=== PATIENT | male | born 1950 | race Caucasian/White ===

== ENCOUNTER → 2018-10-30 | Outpatient (CLI) | payer MEDICARE, OTHER ==
[2018-10-30 14:31] LABS: ABSOLUTE BASOPHILS # (AUTO) 0.1 10^3/uL (0.0-0.2); ABSOLUTE EOSINOPHILS # (AUTO) 0.4 10^3/uL (0.0-0.6); ABSOLUTE LYMPHOCYTES (AUTO) 1.8 10^3/uL (0.5-4.7); ABSOLUTE MONOCYTES (AUTO) 0.7 10^3/uL (0.1-1.4); ABSOLUTE NEUT (AUTO) 7.5 10^3/uL (1.7-8.2); EOSINOPHILS % (AUTO) 4.2 % (0-6); HEMATOCRIT 44.5 % (37.9-51.0); HEMOGLOBIN 15.5 g/dL (13.5-17.0); LYMPHOCYTES % (AUTO) 17.5 % (13-45); MEAN CORPUSCULAR HEMOGLOBIN 30.7 pg (27.0-33.4); MEAN CORPUSCULAR HGB CONC 34.8 g/dL (32.0-36.0); MEAN CORPUSCULAR VOLUME 88 fl (80-97); MONOCYTES % (AUTO) 6.5 % (3-13); PLATELET COUNT 221 10^3/uL (150-450); RED BLOOD COUNT 5.03 10^6/uL (4.35-5.55); RED CELL DISTRIBUTION WIDTH 14.6 % (11.5-14.0); SEGMENTED NEUTROPHILS % (AUTO) 70.8 % (42-78); TOTAL CELLS COUNTED % (AUTO) 100 %; WHITE BLOOD COUNT 10.5 10^3/uL (4.0-10.5)
[2018-10-30 14:34] LABS: APPEARANCE,URINE CLEAR; BILIRUBIN,URINE NEGATIVE (NEGATIVE); COLOR,URINE YELLOW; GLUCOSE, URINE NEGATIVE (NEGATIVE); KETONES,URINE NEGATIVE (NEGATIVE); LEUKOCYTE ESTERASE,URINE TRACE (NEGATIVE); NITRITE,URINE NEGATIVE (NEGATIVE); PROTEIN,URINE NEGATIVE (NEGATIVE); URINE SPECIFIC GRAVITY 1.009; UROBILINOGEN,URINE NEGATIVE mg/dL (<2.0)
[2018-10-30 14:47] LABS: ALANINE AMINOTRANSFERASE 20 U/L (21-72); ALBUMIN 4.2 g/dL (3.5-5.0); ALKALINE PHOSPHATASE 51 U/L (38-126); ANION GAP 10 (5-19); ASPARTATE AMINO TRANSFERASE 20 U/L (17-59); BILIRUBIN,DIRECT 0.2 mg/dL (0.0-0.4); BILIRUBIN,TOTAL 0.6 mg/dL (0.2-1.3); BLOOD UREA NITROGEN 15 mg/dL (7-20); CALCIUM 9.5 mg/dL (8.4-10.2); CARBON DIOXIDE 31 mmol/L (22-30); CHLORIDE 101 mmol/L (98-107); GLUCOSE 98 mg/dL (75-110); POTASSIUM 3.4 mmol/L (3.6-5.0); SODIUM 142.3 mmol/L (137-145); TOTAL PROTEIN 6.7 g/dL (6.3-8.2)
== END ==
LOC: OD 13:44
PROVIDERS: ATTEND Internal Medicine Nephrology
DX: I12.9 Hypertensive chronic kidney disease with stage 1 through stage 4 chronic kidney disease, or unspecified chronic kidney disease (principal); N18.3 Chronic kidney disease, stage 3 (moderate)
CPT/HCPCS: 36415; 80053; 81001; 85025

== ENCOUNTER 2020-08-05 08:45 | Inpatient (IN) | payer MEDICARE, OTHER ==
[2020-08-05] MEDS ORDERED: NORMAL SALINE 1000 ML 1,000 ML IV ONE (09:12)
[2020-08-05 09:33] LABS: ALBUMIN 3.1 g/dL (3.5-5.0); ALKALINE PHOSPHATASE 164 U/L (38-126); ANION GAP 8 (5-19); ASPARTATE AMINO TRANSFERASE 200 U/L (17-59); BILIRUBIN,DIRECT 1.2 mg/dL (0.0-0.4); BILIRUBIN,TOTAL 2.1 mg/dL (0.2-1.3); BLOOD UREA NITROGEN 46 mg/dL (7-20); CALCIUM 10.3 mg/dL (8.4-10.2); CARBON DIOXIDE 25 mmol/L (22-30); CHLORIDE 104 mmol/L (98-107); CREATINE KINASE 114 U/L (55-170); GLUCOSE 106 mg/dL (75-110); POTASSIUM 4.3 mmol/L (3.6-5.0)
[2020-08-05 10:03] LABS: APPEARANCE,URINE SLIGHTLY-CLOUDY; BILIRUBIN,URINE SMALL (NEGATIVE); COLOR,URINE AMBER; GLUCOSE, URINE NEGATIVE (NEGATIVE); KETONES,URINE TRACE mg/dL (NEGATIVE); LEUKOCYTE ESTERASE,URINE NEGATIVE (NEGATIVE); NITRITE,URINE NEGATIVE (NEGATIVE); PROTEIN,URINE 100 mg/dL (NEGATIVE); URINE SPECIFIC GRAVITY 1.023
--- NOTE | 2020-08-05 10:07 | RADIOLOGY REPORT (SQ) ---
EXAM DESCRIPTION: CHEST SINGLE VIEW IMAGES COMPLETED DATE/TIME: 08/05/2020 9:09 am REASON FOR STUDY: dizziness COMPARISON: None. EXAM PARAMETERS: NUMBER OF VIEWS: One view. TECHNIQUE: Single frontal radiographic view of the chest acquired. RADIATION DOSE: NA LIMITATIONS: None. FINDINGS: LUNGS AND PLEURA: Lungs are hyperinflated and hyperlucent from obstructive lung disease. No focal infiltrates. No pleural pneumothorax MEDIASTINUM AND HILAR STRUCTURES: No masses. Contour normal. HEART AND VASCULAR STRUCTURES: Heart normal in size. Normal vasculature. BONES: No acute findings. HARDWARE: None in the chest. OTHER: No other significant finding. IMPRESSION: HYPERINFLATION. NO ACUTE RADIOGRAPHIC FINDING IN THE CHEST. TECHNICAL DOCUMENTATION: JOB ID: [id number] 2010 [employer]- All Rights Reserved Reading location - IP/workstation name: [id number]
[2020-08-05 10:43] LABS: HEMATOCRIT 40.5 % (37.9-51.0); HEMOGLOBIN 13.6 g/dL (13.5-17.0); MEAN CORPUSCULAR HGB CONC 33.6 g/dL (32.0-36.0); MEAN CORPUSCULAR VOLUME 89 fl (80-97); RED BLOOD COUNT 4.54 10^6/uL (4.35-5.55); RED CELL DISTRIBUTION WIDTH 13.5 % (11.5-14.0); WHITE BLOOD COUNT 12.9 10^3/uL (4.0-10.5)
[2020-08-05 11:13] LABS: ABSOLUTE LYMPHOCYTES# (MANUAL) 1.3 10^3/uL (0.5-4.7); ABSOLUTE MONOCYTES # (MANUAL) 0.1 10^3/uL (0.1-1.4); BASOPHILS % (MANUAL) 0 % (0-2); EOSINOPHILS % (MANUAL) 0 % (0-6); LYMPHOCYTES % (MANUAL) 10 % (13-45); MONOCYTES % (MANUAL) 1 % (3-13); PLATELET CLUMPS PRESENT; PLATELET COMMENT ADEQUATE; SEGMENTED NEUTROPHILS % (MAN) 84 % (42-78); TOTAL CELLS COUNTED 100
[2020-08-05 11:14] LABS: PLATELET COUNT 100 10^3/uL (150-450); RBC MORPHOLOGY COMMENT NORMO-CYTIC/CHROMIC
[2020-08-05 11:17] LABS: METAMYELOCYTES % (MANUAL) 3 % (0-1); MYELOCYTES % (MANUAL) 2 % (0)
[2020-08-05 11:18] LABS: PLATELET GIANT PRESENT
--- NOTE | 2020-08-05 11:18 | EKG REPORT ---
SEVERITY:- ABNORMAL ECG - SINUS TACHYCARDIA LEFT ANTERIOR FASCICULAR BLOCK CONSIDER OLD INFERIOR WI VS LAFB : Confirmed by: Mike Srinivasan MD 05-Aug-2020 11:18:00
--- NOTE | 2020-08-05 11:24 | ER Document Report ---
ED General - General Chief Complaint: Dizziness Stated Complaint: DIZZINESS Time Seen by Provider: 08/05/20 08:47 Mode of Arrival: Medic Information source: Patient, Emergency Med Personnel Notes: 70-year-old male patient with history of hypertension presented to the emergency department with chief complaint of dizziness and generalized malaise. Patient reports he felt fine when he went to bed last night. He woke up this morning feeling dizzy and diaphoretic. He reports he has been drinking water but has not had much of an appetite over the last few days. He has recently seen his primary care provider, had labs drawn and also had imaging done of his abdominal aortic aneurysm, he reports that there was no problem on the imaging. He denies any chest pain, shortness of breath, nausea, vomiting or any other symptoms. He reports the dizziness is worse when he stands up. TRAVEL OUTSIDE OF THE [place] IN LAST 30 DAYS: No - Related Data Allergies/Adverse Reactions: Penicillins Allergy (Verified 08/05/20 09:45) Sulfa (Sulfonamide Antibiotics) Allergy (Verified 08/05/20 09:45) Home Medications: amlodipine, aspirin Past Medical History - General Information source: Patient - Social History Smoking Status: Former Smoker - quit in 2017 Frequency of alcohol use: None Drug Abuse: None Family History: CVA, Hypertension, Other - father of "brain hemorrhage" - Past Medical History Cardiac Medical History: Reports: Hx Hypertension Pulmonary Medical History: Reports: Hx Asthma Renal/ Medical History: Reports: Other - Chronic kidney disease Surgical Hx: Negative - Immunizations Immunizations up to date: Yes Review of Systems - Review of Systems Constitutional: Other - Dizziness, decreased appetite -: Yes All other systems reviewed and negative Physical Exam - Vital signs Vitals: Resp Pulse Ox 23 H 94 08/05/20 08:46 08/05/20 08:46 - Notes Notes: PHYSICAL EXAMINATION: GENERAL: Well-appearing, well-nourished and in no acute distress. HEAD: Atraumatic, normocephalic. EYES: Pupils equal round and reactive to light, extraocular movements intact, sclera anicteric, conjunctiva are slightly yellow. ENT: Nares patent, oropharynx clear without exudates. Dry mucous membranes. NECK: Normal range of motion, supple without lymphadenopathy LUNGS: Breath sounds clear to auscultation bilaterally and equal. Slight expiratory wheezes noted bilaterally. HEART: Regular rate and rhythm without murmurs ABDOMEN: Soft, nontender, nondistended abdomen. No guarding, no rebound. No masses appreciated. Musculoskeletal: Normal range of motion, no pitting or edema. No cyanosis. NEUROLOGICAL: Cranial nerves grossly intact. Normal speech. Normal sensory, motor exams PSYCH: Normal mood, normal affect. SKIN: Skin yellow. Decreased skin turgor. Course - Re-evaluation Re-evalutation: Case was discussed with attending physician, Dr. Fuentes. Patient has low platelet count, elevated creatinine which is at or near patient's baseline, significantly elevated LFTs. Right upper quadrant ultrasound was obtained, shows possible metastatic liver. CT of the abdomen, pelvis and chest was added on. This showed nodules in the lungs. Patient remains tachycardic with a heart rate in the 120s despite 2 L fluid resuscitation. Hospitalist was called for admission for dehydration as well as possible new diagnosis of cancer, unknown primary site. Patient was accepted for admission. Discussed plan of care with patient and . Discussed all test results with patient and , they have no questions at this time. - Vital Signs Vital signs: Temp Pulse Resp BP Pulse Ox 97.1 F 123 H 21 H 97/74 L 95 08/05/20 18:24 08/05/20 19:00 08/05/20 16:01 08/05/20 18:24 08/05/20 18:24 - Laboratory Result Diagrams: 08/05/20 10:25 08/05/20 08:50 Laboratory results interpreted by me: 08/05/20 08/05/20 08/05/20 08:50 08:50 09:25 WBC Plt Count Seg Neuts % (Manual) Lymphocytes % (Manual) Monocytes % (Manual) Metamyelocytes % Myelocytes % Abs Neuts (Manual) D-Dimer 10.39 H BUN 46 H Calcium 10.3 H Total Bilirubin 2.1 H Direct Bilirubin 1.2 H AST 200 H ALT 141 H Alkaline Phosphatase 164 H Total Protein 6.0 L Albumin 3.1 L Urine Protein 100 H Urine Ketones TRACE H Urine Bilirubin SMALL H Urine Urobilinogen 4.0 H 08/05/20 10:25 WBC 12.9 H Plt Count 100 L Seg Neuts % (Manual) 84 H Lymphocytes % (Manual) 10 L Monocytes % (Manual) 1 L Metamyelocytes % 3 H Myelocytes % 2 H Abs Neuts (Manual) 11.5 H D-Dimer BUN Calcium Total Bilirubin Direct Bilirubin AST ALT Alkaline Phosphatase Total Protein Albumin Urine Protein Urine Ketones Urine Bilirubin Urine Urobilinogen - Diagnostic Test Radiology reviewed: Image reviewed, Reports reviewed - EKG Interpretation by Me EKG shows normal: Sinus rhythm - Sinus tachycardia, rate 127, normal intervals, no obvious ST segment elevations or depressions to suggest ischemia. Discharge - Discharge Clinical Impression: Dehydration, Elevated liver enzymes, Tachycardia, Lung nodule, Metastasis to liver of unknown origin Condition: Stable Disposition: ADMITTED OBSERVATION Admitting Provider: Mark (Hospitalist) Unit Admitted: Telemetry
--- NOTE | 2020-08-05 11:34 | RADIOLOGY REPORT (SQ) ---
EXAM DESCRIPTION: U/S ABDOMEN LTD W/DOPPLER IMAGES COMPLETED DATE/TIME: 08/05/2020 11:13 am REASON FOR STUDY: elevated LFT's, eval RUQ COMPARISON: None. TECHNIQUE: Dynamic and static grayscale images acquired of the abdomen and recorded on PACS. Additio nal selected color Doppler and spectral images recorded. LIMITATIONS: Upper abdominal bowel gas FINDINGS: PANCREAS: Midline pancreas unremarkable LIVER: Liver is normal size but heterogeneous in echotexture nodular appearance. Multiple liver meta static masses could not be excluded. LIVER VASCULATURE: Normal directional flow of the main portal vein and hepatic veins. GALLBLADDER: Multiple stones, largest is 3 cm. Normal wall thickness. No pericholecystic fluid. ULTRASOUND-DETECTED HARDING'S SIGN: Negative. INTRAHEPATIC DUCTS AND COMMON DUCT: CBD and intrahepatic ducts normal caliber. No filling defects. INFERIOR VENA CAVA: Normal flow. AORTA: No aneurysm. RIGHT KIDNEY: Diffusely small, echogenic cortex, with no hydronephrosis. PERITONEAL AND RIGHT PLEURAL SPACE: No ascites or effusions. OTHER: No other significant findings. IMPRESSION: Nodular appearing liver, multinodular cirrhosis versus liver metastatic disease Multiple stones in the gallbladder without sonographic signs of acute cholecystitis Echogenic atrophic right kidney TECHNICAL DOCUMENTATION: JOB ID: [id number] 2010 [employer]- All Rights Reserved Reading location - IP/workstation name: [id number]
--- NOTE | 2020-08-05 13:47 | RADIOLOGY REPORT (SQ) ---
EXAM DESCRIPTION: CT CHEST WITH; CT ABD/PELVIS WITH IV ONLY IMAGES COMPLETED DATE/TIME: 08/05/2020 11:41 am REASON FOR STUDY: eval for primary ca site. Patient presented with dizziness today. Bilateral le g weakness. COMPARISON: Chest radiograph, same date. CONTRAST TYPE AND DOSE: 95 mL Omnipaque 350- low osmolar. RENAL FUNCTION: GFR > 60. TECHNIQUE: CT scan of the chest performed using helical scanning technique with dynamic intravenous contrast injection. Images reviewed with lung, soft tissue and bone windows. Reconstructed coronal a nd sagittal MPR images reviewed. All images stored on PACS. CT scan of the abdomen and pelvis performed with intravenous and oral contrast using helical scanning technique with dynamic intravenous contrast injection. Images reviewed with lung, soft tissue and b one windows. Reconstructed coronal and sagittal MPR images reviewed. Delayed images for evaluation of the urinary system also acquired and evaluated. All images stored on PACS. All CT scanners at this facility use dose modulation, iterative reconstruction, and/or weight based d osing when appropriate to reduce radiation dose to as low as reasonably achievable (ALARA). [facility]: Dose Right [facility]: CareDose [facility]: Dose Right [facility]: Teradose 4D [facility]: [employer] RADIATION DOSE: CT Rad equipment meets quality standard of care and radiation dose reduction techniq ues were employed. CTDIvol: 8.9 - 13.5 mGy. DLP: 1747 mGy-cm. . LIMITATIONS: None. FINDINGS: CHEST: AXILLAE: No adenopathy. CHEST WALL: No masses. No subcutaneous air. LUNGS: The trachea has normal caliber and appearance. There is retained endobronchial secretions at the brigitte. No endobronchial mass. Background moderate pulmonary emphysema. No focal consolidation . There is a 2.3 x 1.4 cm solid nodule in the medial right lower lobe (image 52). 2 adjacent 6 mm s olid nodules in the peripheral left lower lobe (images 40 and 41). PLEURA: No pleural effusion or pneumothorax. No pleural nodularity. THYROID: No masses or significant asymmetry. HILAR AND MEDIASTINAL STRUCTURES: No identified masses or abnormal nodes. AORTA AND GREAT VESSELS: No aneurysm. No dissection. PULMONARY ARTERIES: No identified pulmonary emboli. Study not optimized for the pulmonary arteries. HEART: No pericardial effusion. HARDWARE AND LIFELINES: None. BONES: No suspicious bone lesions. OTHER: No other significant finding. ABDOMEN AND PELVIS: LIVER: The liver has normal size and contour. There are innumerable hypodense lesions within the hep atic parenchyma, the largest at the inferior right hepatic lobe measures 5.7 x 5.8 cm. Hepatic and p ortal veins are patent. No biliary ductal dilation. SPLEEN: Normal size. No focal lesions. PANCREAS: No masses. No significant calcifications. No adjacent inflammation or peripancreatic flui d collections. Pancreatic duct not dilated. GALLBLADDER: There is a large gallstone within the gallbladder lumen. No gallbladder wall thickening or pericholecystic fluid. ADRENAL GLANDS: Indeterminate 1.7 cm solid right adrenal nodule. No left adrenal nodule. RIGHT KIDNEY AND URETER: Asymmetric atrophy right kidney. There are multiple renal cortical cysts an d too small to characterize renal cortical lesions. Indeterminate 9 mm lesion inferior pole right ki dney has intermediate density. No significant calcifications. No hydronephrosis or hydroureter. LEFT KIDNEY AND URETER: Normal size and position. Multiple too small to characterize renal cortical lesions. Benign cyst at the inferior pole. No significant calcifications. No hydronephrosis or h ydroureter. AORTA AND VESSELS: Infrarenal aortic bi-iliac stent graft. An endoluminal stent is also seen in the right common femoral artery partially visualized. 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 Probable high-grade stenosis in the common iliac arteries. There is normal opacification of the external iliac arteries with calcified and noncalcified atherosclerotic plaque at the common femoral arteries partially visualized. No periaortic fluid or inflammatory [place] ge. RETROPERITONEUM: No retroperitoneal adenopathy, hemorrhage or masses. LARGE AND SMALL BOWEL: There is no bowel obstruction. No bowel wall thickening. No mass or inflamma tory change. APPENDIX: Normal. ABDOMINAL WALL: No hernia or masses. PERITONEAL CAVITY: No free air. No free fluid. No peritoneal implants or masses. PELVIS: The prostate is enlarged measuring 5.7 x 4.3 cm. Urinary bladder has normal contour. No pel amaris adenopathy or free fluid. BONES: No suspicious bone lesions. OTHER: No other significant finding. IMPRESSION: 1. Suspicious 2.3 cm solid nodule in the right medial lower lobe. This may be amenable to percutaneo us sampling. Additionally, there are 2 indeterminate subcentimeter solid nodules in the left lower l obe. Background moderate pulmonary emphysema. 2. Innumerable hepatic metastases. 3. Infrarenal aortic bi-iliac stent graft. There is a right common femoral aneurysm with intralumina l stent graft. 4. Multiple bilateral indeterminate renal cortical lesions. Moderately suspicious 9 mm lesion at the inferior pole right kidney. Renal protocol MRI or CT may provide additional information, however ma ny of these are too small to adequately characterize and follow-up may be required. 5. Prostatomegaly. TECHNICAL DOCUMENTATION: JOB ID: [id number] Quality ID # [id number]: Final reports with documentation of one or more dose reduction techniques (e.g., Au tomated exposure control, adjustment of the mA and/or kV according to patient size, use of iterative reconstruction technique) 2010 [employer]- All Rights Reserved Reading location - IP/workstation name: [id number]
[2020-08-05] MEDS: NORMAL SALINE 1000 ML 1,000 ML IV PRN (15:24)
--- NOTE | 2020-08-05 15:44 | RADIOLOGY REPORT (SQ) ---
EXAM DESCRIPTION: CT HEAD WITHOUT IMAGES COMPLETED DATE/TIME: 08/05/2020 3:20 pm REASON FOR STUDY: dizziness COMPARISON: None. TECHNIQUE: Axial images acquired through the brain without intravenous contrast. Images reviewed wi th bone, brain and subdural windows. Additional sagittal and coronal reconstructions were generated. Images stored on PACS. All CT scanners at this facility use dose modulation, iterative reconstruction, and/or weight based d osing when appropriate to reduce radiation dose to as low as reasonably achievable (ALARA). [facility]: Dose Right [facility]: CareDose [facility]: Dose Right [facility]: Teradose 4D [facility]: [employer] RADIATION DOSE: CT Rad equipment meets quality standard of care and radiation dose reduction techniq ues were employed. CTDIvol: 53.2 mGy. DLP: 1017 mGy-cm. mGy. LIMITATIONS: None. FINDINGS: VENTRICLES: Normal size and contour. CEREBRUM: No masses. No hemorrhage. No midline shift. No evidence for acute infarction. Normal gra y/white matter differentiation. No areas of low density in the white matter. CEREBELLUM: No masses. No hemorrhage. No alteration of density. No evidence for acute infarction. EXTRAAXIAL SPACES: No fluid collections. No masses. ORBITS AND GLOBE: No intra- or extraconal masses. Normal contour of globe without masses. CALVARIUM: No fracture. PARANASAL SINUSES: No fluid or mucosal thickening. SOFT TISSUES: No mass or hematoma. OTHER: No other significant finding. IMPRESSION: NORMAL BRAIN CT WITHOUT CONTRAST. EVIDENCE OF ACUTE STROKE: NO. COMMENT: Quality ID # [id number]: Final reports with documentation of one or more dose reduction techniques (e.g., Automated exposure control, adjustment of the mA and/or kV according to patient size, use of iterative reconstruction technique) TECHNICAL DOCUMENTATION: JOB ID: [id number] 2010 [employer]- All Rights Reserved Reading location - IP/workstation name: [email or web address]
[2020-08-05] MEDS ORDERED: ALBUTEROL SULFATE HFA (90 MCG/PUFF) 8 GM MDI (1 MDI/ER DISP) IH PRN (17:25)
--- NOTE | 2020-08-05 17:45 | PDOC H&P ---
History of Present Illness Admission Date/PCP: 08/05/20 15:16 Denia MOTA MD Patient complains of: Syncope History of Present Illness: LAUREN GOVEA is a 70 year old male who has history of hypertension, aortic aneurysm status post endovascular repair, COPD not on home oxygen. Patient is a former smoker. He does not drink. Patient was scheduled for CT scan outpatient earlier today. Before he underwent the scan, he apparently fell in the bathroom was some head trauma. Patient mentioned that his legs gave out on him. He denied any dizziness. Is not sure if he lost consciousness. Denies any seizure activity or incontinence. He mentioned that he has not been eating as usual for the past 5 days but was able to keep fluids in. Work-up in the emergency room was positive for lung mass with numerous liver metastases. Past Medical History Cardiac Medical History: Reports: Hypertension, Other - Abdominal aortic and femoral artery aneurysms Pulmonary Medical History: Reports: Asthma, Chronic Obstructive Pulmonary Disease (COPD) Past Surgical History Past Surgical History: Reports: Other - Endovascular repair of aortic and right femoral artery aneurysms Social History Smoking Status: Former Smoker - quit in 2017 Family History Family History: CVA, Hypertension, Other - father of "brain hemorrhage" Parental Family History Reviewed: Yes Children Family History Reviewed: NA Sibling(s) Family History Reviewed.: NA Medication/Allergy Home Medications: Albuterol Sulfate [Proair Hfa Inhalation Aerosol 8.5 gm Mdi] 2 puff IH Q6HP PRN 08/05/20 Amlodipine Besylate [Norvasc 5 mg Tablet] 5 mg PO DAILY 08/05/20 Aspirin [Aspirin 325 mg Tablet] 325 mg PO DAILY 08/05/20 Cholecalciferol (Vitamin D3) [Vitamin D3 1000 Unit Tablet] 5,000 unit PO DAILY 08/05/20 Fluticasone/Umeclidin/Vilanter [Trelegy 100-62.5-25 Mcg Ellipta 14 Dose/Dpi] 1 each IH DAILY 08/05/20 Methimazole [Tapazole 5 Mg Tablet] 2.5 mg PO DAILY 08/05/20 Potassium Chloride [Klor-Con 10 Meq Tablet ER] 10 meq PO QPM 08/05/20 Potassium Chloride [Klor-Con 10 Meq Tablet ER] 20 meq PO DAILY 08/05/20 Tiotropium [place] [Spiriva Handihaler 5 Cap/Kit (18 Mcg/Cap)] 1 cap IH DAILY 08/05/20 Allergies/Adverse Reactions: Penicillins Allergy (Verified 08/05/20 09:45) Sulfa (Sulfonamide Antibiotics) Allergy (Verified 08/05/20 09:45) Review of Systems All systems: reviewed and no additional remarkable complaints except as stated Physical Exam Vital Signs: Temp Pulse Resp BP Pulse Ox 98.9 F 21 H 112/89 H 93 08/05/20 09:02 08/05/20 16:01 08/05/20 16:01 08/05/20 16:01 Intake & Output 08/04/20 08/05/20 08/06/20 06:59 06:59 06:59 Intake Total 1000 Balance 1000 Weight 196 lb 13.965 oz General appearance: PRESENT: no acute distress, cooperative Head exam: PRESENT: atraumatic, normocephalic Eye exam: PRESENT: EOMI, PERRLA. ABSENT: nystagmus Mouth exam: PRESENT: moist, neck supple Neck exam: ABSENT: JVD, meningismus, tenderness, thyromegaly, tracheostomy Respiratory exam: PRESENT: clear to auscultation nicole. ABSENT: accessory muscle use Cardiovascular exam: PRESENT: +S1, +S2, tachycardia Pulses: PRESENT: normal radial pulses GI/Abdominal exam: PRESENT: normal bowel sounds, soft. ABSENT: tenderness Rectal exam: PRESENT: deferred Extremities exam: ABSENT: calf tenderness, joint swelling, pedal edema Musculoskeletal exam: PRESENT: normal inspection. ABSENT: deformity Neurological exam: PRESENT: alert, awake, oriented to person, oriented to place, oriented to time, oriented to situation, CN II-XII grossly intact. ABSENT: motor sensory deficit Results Laboratory Results: 08/05/20 10:25 08/05/20 08:50 08/05/20 08/05/20 08/05/20 08:50 08:50 09:25 WBC Cancelled RBC Cancelled Hgb Cancelled Hct Cancelled MCV Cancelled MCH Cancelled MCHC Cancelled RDW Cancelled Plt Count Cancelled Seg Neutrophils % Cancelled Sodium 137.0 Potassium 4.3 Chloride 104 Carbon Dioxide 25 Anion Gap 8 BUN 46 H Creatinine 1.11 Est GFR ( Amer) > 60 Glucose 106 Calcium 10.3 H Magnesium 2.0 Total Bilirubin 2.1 H AST 200 H Alkaline Phosphatase 164 H Total Protein 6.0 L Albumin 3.1 L Urine Color PETER Urine Appearance SLIGHTLY-CLOUDY Urine pH 5.0 Ur Specific [place] 1.023 Urine Protein 100 H Urine Glucose (UA) NEGATIVE Urine Ketones TRACE H Urine Blood NEGATIVE Urine Nitrite NEGATIVE Ur Leukocyte Esterase NEGATIVE Urine WBC (Auto) 3 Urine RBC (Auto) 2 08/05/20 10:25 WBC 12.9 H RBC 4.54 Hgb 13.6 Hct 40.5 MCV 89 MCH 30.0 MCHC 33.6 RDW 13.5 Plt Count 100 L Seg Neutrophils % Not Reportable Sodium Potassium Chloride Carbon Dioxide Anion Gap BUN Creatinine Est GFR ( Amer) Glucose Calcium Magnesium Total Bilirubin AST Alkaline Phosphatase Total Protein Albumin Urine Color Urine Appearance Urine pH Ur Specific [place] Urine Protein Urine Glucose (UA) Urine Ketones Urine Blood Urine Nitrite Ur Leukocyte Esterase Urine WBC (Auto) Urine RBC (Auto) 08/05/20 08/05/20 08:50 08:50 Creatine Kinase 114 Troponin I < 0.012 Impressions: Chest X-Ray 08/05/20 08:58 IMPRESSION: HYPERINFLATION. NO ACUTE RADIOGRAPHIC FINDING IN THE CHEST. Abdomen Ultrasound 08/05/20 09:51 IMPRESSION: Nodular appearing liver, multinodular cirrhosis versus liver metastatic disease Multiple stones in the gallbladder without sonographic signs of acute cholecystitis Echogenic atrophic right kidney Abdomen/Pelvis CT 08/05/20 11:50 IMPRESSION: 1. Suspicious 2.3 cm solid nodule in the right medial lower lobe. This may be amenable to percutaneous sampling. Additionally, there are 2 indeterminate subcentimeter solid nodules in the left lower lobe. Background moderate pulmonary emphysema. 2. Innumerable hepatic metastases. 3. Infrarenal aortic bi-iliac stent graft. 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 4. Multiple bilateral indeterminate renal cortical lesions. Moderately suspicious 9 mm lesion at the inferior pole right kidney. Renal protocol MRI or CT may provide additional information, however many of these are too small to adequately characterize and follow-up may be required. 5. Prostatomegaly. Chest CT 08/05/20 11:51 IMPRESSION: 1. Suspicious 2.3 cm solid nodule in the right medial lower lobe. This may be amenable to percutaneous sampling. Additionally, there are 2 indeterminate subcentimeter solid nodules in the left lower lobe. Background moderate pulmonary emphysema. 2. Innumerable hepatic metastases. 3. Infrarenal aortic bi-iliac stent graft. 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 4. Multiple bilateral indeterminate renal cortical lesions. Moderately suspicious 9 mm lesion at the inferior pole right kidney. Renal protocol MRI or CT may provide additional information, however many of these are too small to adequately characterize and follow-up may be required. 5. Prostatomegaly. Head CT 08/05/20 14:55 IMPRESSION: NORMAL BRAIN CT WITHOUT CONTRAST. EVIDENCE OF ACUTE STROKE: NO. Assessment and Plan - Diagnosis (1) Near syncope Is this a current diagnosis for this admission?: Yes Plan: Admit for observation. Check echocardiogram. Telemetry monitoring. Orthostatic vital signs. My impression is this is most likely just deconditioning and generalized muscle weakness from poor nutrition. (2) Dehydration Is this a current diagnosis for this admission?: Yes Plan: Continue IV fluids. (3) Elevated liver enzymes Is this a current diagnosis for this admission?: Yes Plan: Most likely related to liver metastasis. (4) Lung nodule Is this a current diagnosis for this admission?: Yes Plan: Highly concerning for malignancy. We will need biopsy. I consulted Dr. Ruiz. (5) Metastasis to liver of unknown origin Is this a current diagnosis for this admission?: Yes Plan: As above (6) Tachycardia Is this a current diagnosis for this admission?: Yes Plan: Sinus tachycardia. IV fluids as above. Monitor on telemetry. Echocardiogram. Check TSH. (7) COPD (chronic obstructive pulmonary disease) Is this a current diagnosis for this admission?: Yes Plan: Not in exacerbation. Continue home medications. (8) HTN (hypertension) Is this a current diagnosis for this admission?: Yes Plan: Resume home medications. Monitor blood pressure. - Time Anticipated Discharge Disposition: Home, Self Care Anticipated Discharge Timeframe: within 72 hours
[2020-08-05] MEDS: POTASSIUM CHLORIDE 10 MEQ TABLET.ER PO SCH (18:25)
[2020-08-06] MEDS: NORMAL SALINE 1000 ML 1,000 ML IV PRN ×4 (00:10→22:08)
[2020-08-06 05:20] LABS: HEMATOCRIT 38.2 % (37.9-51.0); HEMOGLOBIN 12.9 g/dL (13.5-17.0); MEAN CORPUSCULAR HEMOGLOBIN 30.2 pg (27.0-33.4); MEAN CORPUSCULAR HGB CONC 33.8 g/dL (32.0-36.0); MEAN CORPUSCULAR VOLUME 90 fl (80-97); RED BLOOD COUNT 4.27 10^6/uL (4.35-5.55); RED CELL DISTRIBUTION WIDTH 13.3 % (11.5-14.0); WHITE BLOOD COUNT 11.6 10^3/uL (4.0-10.5)
[2020-08-06 05:31] LABS: ALBUMIN 2.9 g/dL (3.5-5.0); ALKALINE PHOSPHATASE 148 U/L (38-126); ANION GAP 11 (5-19); ASPARTATE AMINO TRANSFERASE 186 U/L (17-59); BILIRUBIN,DIRECT 1.3 mg/dL (0.0-0.4); BLOOD UREA NITROGEN 38 mg/dL (7-20); CALCIUM 9.6 mg/dL (8.4-10.2); CARBON DIOXIDE 22 mmol/L (22-30); CHLORIDE 108 mmol/L (98-107); GLUCOSE 84 mg/dL (75-110); TOTAL PROTEIN 5.6 g/dL (6.3-8.2)
[2020-08-06 06:01] LABS: PLATELET COUNT 87 10^3/uL (150-450)
[2020-08-06] MEDS: CHOLECALCIFEROL (D3) 1,000 UNIT (25 MCG) TABLET PO SCH (09:22)
[2020-08-06] MEDS: ASPIRIN 325 MG TABLET PO SCH (09:22)
[2020-08-06] MEDS: METOPROLOL TARTRATE 25 MG TABLET PO SCH ×2 (09:22→22:07)
[2020-08-06] MEDS: METHIMAZOLE 5 MG TABLET PO SCH (09:22)
[2020-08-06] MEDS: POTASSIUM CHLORIDE 10 MEQ TABLET.ER PO SCH ×2 (09:23→18:09)
[2020-08-06] MEDS: FLUTICASONE/UMECLIDIN/VILANTER 100-62.5-25 MCG/DOSE IH SCH (09:24)
[2020-08-06] MEDS ORDERED: (PENDING PHARMACY ID) (Tiotropium Bromide [Spiriva Handihaler 5 Cap/Kit (18 Mcg/Cap)] 5 CA IH SCH (10:00)
[2020-08-06] MEDS ORDERED: AMLODIPINE BESYLATE 5 MG TABLET PO SCH (10:00)
[2020-08-06] MEDS ORDERED: UMECLIDINIUM BROMIDE 62.5 MCG/DOSE IH SCH (10:00)
[2020-08-06] MEDS: ENOXAPARIN SODIUM INJ 40 MG/0.4 ML DISP.SYRIN SUBCUT SCH (10:22)
--- NOTE | 2020-08-06 11:48 | PDOC CONSULTATION ---
Consultation Consult Date: 08/06/20 Provider Consulted: RICHARD BONILLA Consult reason:: Hematology/Oncology consultation was requested for patient with lung and liver masses on CT History of Present Illness Admission Date/PCP: 08/05/20 15:16 Denia MOTA MD History of Present Illness: LAUREN GOVEA is a 70 year old male who follows with Dr. Troncoso and Santy who was scheduled to have CT chest for follow-up of lung nodules as outpatient on Sat. However, he feel in the bath room and was not able to get up. He states that he has been having progressive dyspnea on exertion as well as weakness. Today, he is still weak. He worked with PT earlier today. He understands that the CT scans showed possible cancer. Past Medical History Cardiac Medical History: Reports: Hypertension, Other - Abdominal aortic and femoral artery aneurysms Pulmonary Medical History: Reports: Asthma, Chronic Obstructive Pulmonary Disease (COPD) Renal/ Medical History: Reports: Other - Chronic kidney disease Psychiatric Medical History: Denies: Depression Past Surgical History Past Surgical History: Reports: Other - Endovascular repair of aortic and right femoral artery aneurysms Social History Information Source: Patient Occupation: Lives with . He has 1 child. No pets. Lives with: Spouse/Significant other Smoking Status: Former Smoker - quit in 2016 Cigarettes Packs Per Day: 1 Number of Years Smokin Last Time Smoked: 2014 Frequency of Alcohol Use: None Hx Recreational Drug Use: No Family History Family History: CVA, Hypertension, Other - father of "brain hemorrhage" Parental Family History Reviewed: Yes - Dad alcoholism. Mom unknown cancer. Children Family History Reviewed: Yes Sibling(s) Family History Reviewed.: Yes - Sister breast cancer Medication/Allergy Home Medications: Albuterol Sulfate [Proair Hfa Inhalation Aerosol 8.5 gm Mdi] 2 puff IH Q6HP PRN 08/05/20 Amlodipine Besylate [Norvasc 5 mg Tablet] 5 mg PO DAILY 08/05/20 Aspirin [Aspirin 325 mg Tablet] 325 mg PO DAILY 08/05/20 Cholecalciferol (Vitamin D3) [Vitamin D3 1000 Unit Tablet] 5,000 unit PO DAILY 08/05/20 Fluticasone/Umeclidin/Vilanter [Trelegy 100-62.5-25 Mcg Ellipta 14 Dose/Dpi] 1 each IH DAILY 08/05/20 Methimazole [Tapazole 5 Mg Tablet] 2.5 mg PO DAILY 08/05/20 Potassium Chloride [Klor-Con 10 Meq Tablet ER] 10 meq PO QPM 08/05/20 Potassium Chloride [Klor-Con 10 Meq Tablet ER] 20 meq PO DAILY 08/05/20 Tiotropium [place] [Spiriva Handihaler 5 Cap/Kit (18 Mcg/Cap)] 1 cap IH DAILY 08/05/20 Allergies/Adverse Reactions: Penicillins Allergy (Verified 08/05/20 09:45) Sulfa (Sulfonamide Antibiotics) Allergy (Verified 08/05/20 09:45) Review of Systems Constitutional: ABSENT: fever(s), headache(s) Eyes: PRESENT: visual disturbances Ears: ABSENT: hearing changes Cardiovascular: PRESENT: dyspnea on exertion Respiratory: PRESENT: dyspnea Gastrointestinal: PRESENT: constipation. ABSENT: nausea Genitourinary: ABSENT: dysuria Integumentary: ABSENT: rash Neurological: PRESENT: frequent falls, weakness Hematologic/Lymphatic: ABSENT: easy bleeding Physical Exam Vital Signs: Temp Pulse Resp BP Pulse Ox 97.6 F 115 H 20 107/77 93 08/06/20 08:28 08/06/20 07:34 08/06/20 07:34 08/06/20 07:34 08/06/20 07:34 Intake & Output 08/05/20 08/06/20 08/07/20 06:59 06:59 06:59 Intake Total 3508 Output Total 1460 Balance 2048 Weight 88.1 kg General appearance: PRESENT: no acute distress, well-developed, well-nourished Exam: 70 year old male. Head exam: PRESENT: atraumatic, normocephalic Eye exam: PRESENT: EOMI Mouth exam: PRESENT: moist, tongue midline Neck exam: ABSENT: lymphadenopathy, tenderness Respiratory exam: PRESENT: unlabored Cardiovascular exam: PRESENT: RRR GI/Abdominal exam: PRESENT: soft. ABSENT: tenderness Extremities exam: ABSENT: pedal edema Musculoskeletal exam: PRESENT: normal inspection Neurological exam: PRESENT: alert, awake Psychiatric exam: PRESENT: appropriate affect Skin exam: PRESENT: normal color, other - Clubbing Results Laboratory Results: 08/06/20 03:59 08/06/20 03:59 08/05/20 08/06/20 08/06/20 18:25 03:59 03:59 WBC 11.6 H RBC 4.27 L Hgb 12.9 L Hct 38.2 MCV 90 MCH 30.2 MCHC 33.8 RDW 13.3 Plt Count 87 L Sodium 140.8 Potassium 4.0 Chloride 108 H Carbon Dioxide 22 Anion Gap 11 BUN 38 H Creatinine 0.91 Est GFR ( Amer) > 60 Glucose 84 Calcium 9.6 Total Bilirubin 2.0 H AST 186 H Alkaline Phosphatase 148 H Total Protein 5.6 L Albumin 2.9 L TSH 1.64 08/05/20 08/05/20 08:50 08:50 Creatine Kinase 114 Troponin I < 0.012 Impressions: Chest X-Ray 08/05/20 08:58 IMPRESSION: HYPERINFLATION. NO ACUTE RADIOGRAPHIC FINDING IN THE CHEST. Abdomen Ultrasound 08/05/20 09:51 IMPRESSION: Nodular appearing liver, multinodular cirrhosis versus liver metastatic disease Multiple stones in the gallbladder without sonographic signs of acute c holecystitis Echogenic atrophic right kidney Abdomen/Pelvis CT 08/05/20 11:50 IMPRESSION: 1. Suspicious 2.3 cm solid nodule in the right medial lower lobe. This may be a menable to percutaneous sampling. Additionally, there are 2 indeterminate subcentimeter solid nodules in the left lower lobe. Background moderate pulmonary emphysema. 2. Innumerable hepatic metastases. 3. Infrarenal aortic bi-iliac stent graft. 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 4. Multiple bilateral indeterminate renal cortical lesions. Moderately suspicio us 9 mm lesion at the inferior pole right kidney. Renal protocol MRI or CT may provide additional information, however many of these are too small to adequately characterize and follow-up may be required. 5. Prostatomegaly. Chest CT 08/05/20 11:51 IMPRESSION: 1. Suspicious 2.3 cm solid nodule in the right medial lower lobe. This may be amenable to percutaneous sampling. Additionally, there are 2 indeterminate subcentimeter solid nodules in the left lower lobe. Background moderate pulmonary emphysema. 2. Innumerable hepatic metastases. 3. Infrarenal aortic bi-iliac stent graft. 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 4. Multiple bilateral indeterminate renal cortical lesions. Moderately suspicious 9 mm lesion at the inferior pole right kidney. Renal protocol MRI or CT may provide additional information, however many of these are too small to adequately characterize and follow-up may be required. 5. Prostatomegaly. Head CT 08/05/20 14:55 IMPRESSION: NORMAL BRAIN CT WITHOUT CONTRAST. EVIDENCE OF ACUTE STROKE: NO. Status: Image reviewed by me Assessment & Plan - Diagnosis (1) COPD (chronic obstructive pulmonary disease) Is this a current diagnosis for this admission?: Yes Plan: Follows with Dr. Madera. Consider pulmonary consult. (2) Elevated liver enzymes Is this a current diagnosis for this admission?: Yes Plan: with mild thormbocytopenia. Patient denies alcohol use. This may be due to the tumors. However, HBV/HCV should also be ruled out. (3) Lung nodule Is this a current diagnosis for this admission?: Yes Plan: I discussed the results of the CT scans with the patient. I have explained that this is highly suspicious of lung cancer, but cannot be sure until biopsy has been performed. He agrees to biopsy. Will need 5-6 CORE needle biopsies. Radiology may decide if lung or liver is safest place. I will order PT/PTT/PLT and plan biopsy Saturday morning if possible. - Plan Summary Plan Summary: I iwll be happy to continue to follow him, but biopsy may be arranged as outpatient if patient is ready for discharge prior to this. I can also discuss results as outpatient. Patient was discussed with Dr. Flores.
--- NOTE | 2020-08-06 15:53 | PDOC PROGRESS REPORT ---
Subjective Date:: 08/06/20 Subjective:: History of Present Illness: LAUREN GOVEA is a 70 year old male who has history of hypertension, aortic aneurysm status post endovascular repair, COPD not on home oxygen. Patient is a former smoker. He does not drink. Patient was scheduled for CT scan outpatient earlier today. Before he underwent the scan, he apparently fell in the bathroom was some head trauma. Patient mentioned that his legs gave out on him. He denied any dizziness. Is not sure if he lost consciousness. Denies any seizure activity or incontinence. He mentioned that he has not been eating as usual for the past 5 days but was able to keep fluids in. Work-up in the emergency room was positive for lung mass with numerous liver metastases. Interval history: 07/29/2020: Patient was seen and examined. He is stable on nasal cannula oxygen. Apparently he desaturated rapidly with minimal exertion. Slightly tachycardic. General appearance: PRESENT: no acute distress, cooperative Head exam: PRESENT: atraumatic, normocephalic Eye exam: PRESENT: EOMI, PERRLA. ABSENT: nystagmus Mouth exam: PRESENT: moist, neck supple Neck exam: ABSENT: JVD, meningismus, tenderness, thyromegaly, tracheostomy Respiratory exam: PRESENT: clear to auscultation nicole. ABSENT: accessory muscle use Cardiovascular exam: PRESENT: +S1, +S2, tachycardia Pulses: PRESENT: normal radial pulses GI/Abdominal exam: PRESENT: normal bowel sounds, soft. ABSENT: tenderness Rectal exam: PRESENT: deferred Extremities exam: ABSENT: calf tenderness, joint swelling, pedal edema Musculoskeletal exam: PRESENT: normal inspection. ABSENT: deformity Neurological exam: PRESENT: alert, awake, oriented to person, oriented to place, oriented to time, oriented to situation, CN II-XII grossly intact. ABSENT: motor sensory deficit Assessment and Plan - Diagnosis (1) Near syncope Is this a current diagnosis for this admission?: Yes Plan: Admit for observation. Check echocardiogram. Telemetry monitoring. Orthostatic vital signs. My impression is this is most likely just deconditioning and generalized muscle weakness from poor nutrition. (2) Dehydration Is this a current diagnosis for this admission?: Yes Plan: Continue IV fluids. (3) Elevated liver enzymes Is this a current diagnosis for this admission?: Yes Plan: Most likely related to liver metastasis. (4) Lung nodule Is this a current diagnosis for this admission?: Yes Plan: Highly concerning for malignancy. We will need biopsy. I consulted Dr. Ruiz. (5) Metastasis to liver of unknown origin Is this a current diagnosis for this admission?: Yes Plan: As above (6) Tachycardia Is this a current diagnosis for this admission?: Yes Plan: Sinus tachycardia. IV fluids as above. Monitor on telemetry. Echocardiogram. Check TSH. (7) COPD (chronic obstructive pulmonary disease) Is this a current diagnosis for this admission?: Yes Plan: Not in exacerbation. Continue home medications. (8) HTN (hypertension) Is this a current diagnosis for this admission?: Yes Plan: Resume home medications. Monitor blood pressure. Reason For Visit: NEAR SYNCOPE Physical Exam Vital Signs: Temp Pulse Resp BP Pulse Ox 97.1 F 118 H 20 102/75 94 08/06/20 10:55 08/06/20 10:55 08/06/20 10:55 08/06/20 10:55 08/06/20 10:55 Intake & Output 08/05/20 08/06/20 08/07/20 06:59 06:59 06:59 Intake Total 3508 2080 Output Total 1460 150 Balance 2048 1930 Weight 194 lb 3.636 oz Exam: General appearance: PRESENT: no acute distress, cooperative Head exam: PRESENT: atraumatic, normocephalic Eye exam: PRESENT: EOMI, PERRLA. ABSENT: nystagmus Mouth exam: PRESENT: moist, neck supple Neck exam: ABSENT: JVD, meningismus, tenderness, thyromegaly, tracheostomy Respiratory exam: PRESENT: clear to auscultation nicole. ABSENT: accessory muscle use Cardiovascular exam: PRESENT: +S1, +S2, tachycardia Pulses: PRESENT: normal radial pulses GI/Abdominal exam: PRESENT: normal bowel sounds, soft. ABSENT: tenderness Rectal exam: PRESENT: deferred Extremities exam: ABSENT: calf tenderness, joint swelling, pedal edema Musculoskeletal exam: PRESENT: normal inspection. ABSENT: deformity Neurological exam: PRESENT: alert, awake, oriented to person, oriented to place, oriented to time, oriented to situation, CN II-XII grossly intact. ABSENT: motor sensory deficit Results Laboratory Results: 08/06/20 03:59 08/06/20 03:59 08/05/20 08/06/20 08/06/20 18:25 03:59 03:59 WBC 11.6 H RBC 4.27 L Hgb 12.9 L Hct 38.2 MCV 90 MCH 30.2 MCHC 33.8 RDW 13.3 Plt Count 87 L Sodium 140.8 Potassium 4.0 Chloride 108 H Carbon Dioxide 22 Anion Gap 11 BUN 38 H Creatinine 0.91 Est GFR ( Amer) > 60 Glucose 84 Calcium 9.6 Total Bilirubin 2.0 H AST 186 H Alkaline Phosphatase 148 H Total Protein 5.6 L Albumin 2.9 L TSH 1.64 08/05/20 08/05/20 08:50 08:50 Creatine Kinase 114 Troponin I < 0.012 Impressions: Chest X-Ray 08/05/20 08:58 IMPRESSION: HYPERINFLATION. NO ACUTE RADIOGRAPHIC FINDING IN THE CHEST. Abdomen Ultrasound 08/05/20 09:51 IMPRESSION: Nodular appearing liver, multinodular cirrhosis versus liver metastatic disease Multiple stones in the gallbladder without sonographic signs of acute cholecystitis Echogenic atrophic right kidney Abdomen/Pelvis CT 08/05/20 11:50 IMPRESSION: 1. Suspicious 2.3 cm solid nodule in the right medial lower lobe. This may be amenable to percutaneous sampling. Additionally, there are 2 indeterminate subcentimeter solid nodules in the left lower lobe. Background moderate pulmonary emphysema. 2. Innumerable hepatic metastases. 3. Infrarenal aortic bi-iliac stent graft. 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 4. Multiple bilateral indeterminate renal cortical lesions. Moderately suspicious 9 mm lesion at the inferior pole right kidney. Renal protocol MRI or CT may provide additional information, however many of these are too small to adequately characterize and follow-up may be required. 5. Prostatomegaly. Chest CT 08/05/20 11:51 IMPRESSION: 1. Suspicious 2.3 cm solid nodule in the right medial lower lobe. This may be amenable to percutaneous sampling. Additionally, there are 2 indeterminate subcentimeter solid nodules in the left lower lobe. Background moderate pulmonary emphysema. 2. Innumerable hepatic metastases. 3. Infrarenal aortic bi-iliac stent graft. 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 4. Multiple bilateral indeterminate renal cortical lesions. Moderately suspicious 9 mm lesion at the inferior pole right kidney. Renal protocol MRI or CT may provide additional information, however many of these are too small to adequately characterize and follow-up may be required. 5. Prostatomegaly. Head CT 08/05/20 14:55 IMPRESSION: NORMAL BRAIN CT WITHOUT CONTRAST. EVIDENCE OF ACUTE STROKE: NO. Assessment and Plan - Diagnosis (1) Near syncope Is this a current diagnosis for this admission?: Yes (2) Dehydration Is this a current diagnosis for this admission?: Yes (3) Elevated liver enzymes Is this a current diagnosis for this admission?: Yes (4) Lung nodule Is this a current diagnosis for this admission?: Yes (5) Metastasis to liver of unknown origin Is this a current diagnosis for this admission?: Yes (6) Tachycardia Is this a current diagnosis for this admission?: Yes (7) COPD (chronic obstructive pulmonary disease) Is this a current diagnosis for this admission?: Yes (8) HTN (hypertension) Is this a current diagnosis for this admission?: Yes - Plan Summary Summary: (1) Near syncope Ordered echocardiogram. Telemetry monitoring. Negative orthostatic vital signs. My impression is this is most likely just deconditioning and generalized muscle weakness from poor nutrition. (2) Dehydration Continue IV fluids. (3) Elevated liver enzymes Most likely related to liver metastasis. (4) Lung nodule Highly concerning for malignancy. We will need biopsy. Dr. Ruiz evaluated the patient. (5) Metastasis to liver of unknown origin As above (6) Tachycardia Sinus tachycardia. IV fluids as above. Monitor on telemetry. Echocardiogram. Normal TSH. (7) COPD (chronic obstructive pulmonary disease) Not in exacerbation. Continue home medications. 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 (8) HTN (hypertension) Resume home medications. Monitor blood pressure. (8) Acute hypoxemic respiratory failure. Rule out PE. Will order CT angiogram of the chest. - Time Anticipated Discharge Disposition: Home, Self Care Anticipated Discharge Timeframe: within 72 hours
--- NOTE | 2020-08-06 18:57 | RADIOLOGY REPORT (SQ) ---
EXAM DESCRIPTION: CTA CHEST IMAGES COMPLETED DATE/TIME: 08/06/2020 6:24 pm REASON FOR STUDY: r/o pe R55 SYNCOPE AND COLLAPSE COMPARISON: CT chest abdomen pelvis 08/05/2020 TECHNIQUE: CT scan of the chest performed using helical scanning technique with dynamic intravenous contrast injection. Images reviewed with lung, soft tissue and bone windows. Reconstructed coronal and sagittal MPR images reviewed. Additional 3 dimensional post-processing performed to develop Maximal Intensity Projection images (TX P). All images stored on PACS. All CT scanners at this facility use dose modulation, iterative reconstruction, and/or weight based d osing when appropriate to reduce radiation dose to as low as reasonably achievable (ALARA). [facility]: Dose Right [facility]: CareDose [facility]: Dose Right [facility]: Teradose 4D [facility]: Mashery CONTRAST TYPE AND DOSE: contrast/concentration: Isovue 350.00 mmol/ml; Total Contrast Delivered: 64. 0 ml; Total Saline Delivered: 80.0 ml Contrast bolus adequate for pulmonary arteries and aorta. RENAL FUNCTION: Creatinine 0.9 RADIATION DOSE: CT Rad equipment meets quality standard of care and radiation dose reduction techniq ues were employed. CTDIvol: 9.9 - 16.0 mGy. DLP: 658 mGy-cm. . LIMITATIONS: None. FINDINGS: LUNGS AND PLEURA: 12.3 x 1.5 cm mass is present in the medial basal segment, right lower l obe on axial image 96 this worrisome for metastatic disease. Small spiculated subpleural nodules are present along the dorsal aspect, superior segment left lower lobe 4 mm on axial image 69, 7 mm axial image 71. Remainder of the lungs demonstrate extensive changes of obstructive lung. Airways are patent. No ac [place] infiltrates pleural effusion or pneumothorax. AORTA AND GREAT VESSELS: No aneurysm. Contrast bolus not optimized for the aorta. HEART: No pericardial effusion. No significant coronary artery calcifications. PULMONARY ARTERIES: No emboli visualized in the main pulmonary arteries or the segmental branches. HILAR AND MEDIASTINAL STRUCTURES: No identified masses or abnormal nodes. HARDWARE: None in the chest. UPPER ABDOMEN: There are too numerous to count liver masses worrisome for metastatic disease. THYROID AND OTHER SOFT TISSUES: No masses. No adenopathy. BONES: No acute or significant finding. 3D MIPS: Confirm above findings. OTHER: No other significant finding. IMPRESSION: NO PULMONARY EMBOLI. COMMENT: Quality ID # [id number]: Final reports with documentation of one or more dose reduction techniques (e.g., Automated exposure control, adjustment of the mA and/or kV according to patient size, use of iterative reconstruction technique) TECHNICAL DOCUMENTATION: JOB ID: [id number] 2010 [employer]- All Rights Reserved Reading location - IP/workstation name: [id number]
[2020-08-07] MEDS: NORMAL SALINE 1000 ML 1,000 ML IV PRN (04:52)
[2020-08-07] MEDS: ASPIRIN 325 MG TABLET PO SCH (10:42)
[2020-08-07] MEDS: POTASSIUM CHLORIDE 10 MEQ TABLET.ER PO SCH ×2 (10:43→17:23)
[2020-08-07] MEDS: METOPROLOL TARTRATE 25 MG TABLET PO SCH ×2 (10:43→21:41)
[2020-08-07] MEDS: CHOLECALCIFEROL (D3) 1,000 UNIT (25 MCG) TABLET PO SCH (10:43)
[2020-08-07] MEDS: METHIMAZOLE 5 MG TABLET PO SCH (10:43)
[2020-08-07] MEDS: ENOXAPARIN SODIUM INJ 40 MG/0.4 ML DISP.SYRIN SUBCUT SCH (10:44)
[2020-08-07] MEDS: FLUTICASONE/UMECLIDIN/VILANTER 100-62.5-25 MCG/DOSE IH SCH (10:44)
--- NOTE | 2020-08-07 11:41 | PDOC PROGRESS REPORT ---
Subjective Date:: 08/07/20 Subjective:: History of Present Illness: LAUREN GOVEA is a 70 year old male who has history of hypertension, aortic aneurysm status post endovascular repair, COPD not on home oxygen. Patient is a former smoker. He does not drink. Patient was scheduled for CT scan outpatient earlier today. Before he underwent the scan, he apparently fell in the bathroom was some head trauma. Patient mentioned that his legs gave out on him. He denied any dizziness. Is not sure if he lost consciousness. Denies any seizure activity or incontinence. He mentioned that he has not been eating as usual for the past 5 days but was able to keep fluids in. Work-up in the emergency room was positive for lung mass with numerous liver metastases. Interval history: 08/06/2020: Patient was seen and examined. He is stable on nasal cannula oxygen. Apparently he desaturated rapidly with minimal exertion. Slightly tachycardic. 08/07/2020: Patient was seen and examined. He is currently stable respiratory chase. CT angiogram negative for PE. Reason For Visit: NEAR SYNCOPE Physical Exam Vital Signs: Temp Pulse Resp BP Pulse Ox 97.7 F 116 H 18 102/81 94 08/06/20 22:00 08/07/20 07:00 08/06/20 20:00 08/06/20 20:00 08/06/20 20:00 Intake & Output 08/06/20 08/07/20 08/08/20 06:59 06:59 06:59 Intake Total 3508 5780 Output Total 1460 1130 Balance 2048 4650 Weight 194 lb 3.636 oz 199 lb 15.348 oz Exam: General appearance: PRESENT: no acute distress, cooperative Head exam: PRESENT: atraumatic, normocephalic Eye exam: PRESENT: EOMI, PERRLA. ABSENT: nystagmus Mouth exam: PRESENT: moist, neck supple Neck exam: ABSENT: JVD, meningismus, tenderness, thyromegaly, tracheostomy Respiratory exam: PRESENT: clear to auscultation nicole. ABSENT: accessory muscle use Cardiovascular exam: PRESENT: +S1, +S2, tachycardia Pulses: PRESENT: normal radial pulses GI/Abdominal exam: PRESENT: normal bowel sounds, soft. ABSENT: tenderness Rectal exam: PRESENT: deferred Extremities exam: ABSENT: calf tenderness, joint swelling, pedal edema Musculoskeletal exam: PRESENT: normal inspection. ABSENT: deformity Neurological exam: PRESENT: alert, awake, oriented to person, oriented to place, oriented to time, oriented to situation, CN II-XII grossly intact. ABSENT: motor sensory deficit Results Laboratory Results: 08/06/20 03:59 08/06/20 03:59 08/05/20 08/05/20 08:50 08:50 Creatine Kinase 114 Troponin I < 0.012 Impressions: Chest X-Ray 08/05/20 08:58 IMPRESSION: HYPERINFLATION. NO ACUTE RADIOGRAPHIC FINDING IN THE CHEST. Abdomen Ultrasound 08/05/20 09:51 IMPRESSION: Nodular appearing liver, multinodular cirrhosis versus liver metastatic disease Multiple stones in the gallbladder without sonographic signs of acute cholecystitis Echogenic atrophic right kidney Abdomen/Pelvis CT 08/05/20 11:50 IMPRESSION: 1. Suspicious 2.3 cm solid nodule in the right medial lower lobe. This may be amenable to percutaneous sampling. Additionally, there are 2 indeterminate subc entimeter solid nodules in the left lower lobe. Background moderate pulmonary emphysema. 2. Innumerable hepatic metastases. 3. Infrarenal aortic bi-iliac stent graft. 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 4. Multiple bilateral indeterminate renal cortical lesions. Moderately suspicious 9 mm lesion at the inferior pole right kidney. Renal protocol MRI or CT may provide additional information, however many of these are too small to adequately characterize and follow-up may be required. 5. Prostatomegaly. Chest CT 08/05/20 11:51 IMPRESSION: 1. Suspicious 2.3 cm solid nodule in the right medial lower lobe. This may be amenable to percutaneous sampling. Additionally, there are 2 indeterminate subcentimeter solid nodules in the left lower lobe. Background moderate pulmonary emphysema. 2. Innumerable hepatic metastases. 3. Infrarenal aortic bi-iliac stent graft. 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 4. Multiple bilateral indeterminate renal cortical lesions. Moderately suspicious 9 mm lesion at the inferior pole right kidney. Renal protocol MRI or CT may provide additional information, however many of these are too small to adequately characterize and follow-up may be required. 5. Prostatomegaly. Head CT 08/05/20 14:55 IMPRESSION: NORMAL BRAIN CT WITHOUT CONTRAST. EVIDENCE OF ACUTE STROKE: NO. Chest/Abdomen CTA 08/06/20 00:00 IMPRESSION: NO PULMONARY EMBOLI. Assessment and Plan - Diagnosis (1) Near syncope Is this a current diagnosis for this admission?: Yes (2) Dehydration Is this a current diagnosis for this admission?: Yes (3) Elevated liver enzymes Is this a current diagnosis for this admission?: Yes (4) Lung nodule Is this a current diagnosis for this admission?: Yes (5) Metastasis to liver of unknown origin Is this a current diagnosis for this admission?: Yes (6) Tachycardia Is this a current diagnosis for this admission?: Yes (7) COPD (chronic obstructive pulmonary disease) Is this a current diagnosis for this admission?: Yes (8) HTN (hypertension) Is this a current diagnosis for this admission?: Yes - Plan Summary Summary: (1) Near syncope Ordered echocardiogram. Telemetry monitoring. Negative orthostatic vital signs. My impression is this is most likely just deconditioning and generalized muscle weakness from poor nutrition. (2) Dehydration Continue IV fluids. (3) Elevated liver enzymes Most likely related to liver metastasis. (4) Lung nodule Highly concerning for malignancy. Scheduled for biopsy tomorrow. Dr. Ruiz of oncology is following. (5) Metastasis to liver of unknown origin As above (6) Tachycardia Sinus tachycardia. IV fluids as above. Monitor on telemetry. Echocardiogram pending. Normal TSH. (7) COPD (chronic obstructive pulmonary disease) Not in exacerbation. Continue home medications. Consulted his hooker up. (8) HTN (hypertension) Resume home medications. Monitor blood pressure. (8) Acute hypoxemic respiratory failure. Improved. CTA of the chest negative for PE. - Time Anticipated Discharge Disposition: Home, Self Care Anticipated Discharge Timeframe: within 72 hours
[2020-08-08] MEDS: NORMAL SALINE 1000 ML 1,000 ML IV PRN ×3 (01:32→17:03)
[2020-08-08 05:56] LABS: HEMOGLOBIN 12.8 g/dL (13.5-17.0); MEAN CORPUSCULAR HEMOGLOBIN 30.2 pg (27.0-33.4); MEAN CORPUSCULAR HGB CONC 33.6 g/dL (32.0-36.0); MEAN CORPUSCULAR VOLUME 90 fl (80-97); RED BLOOD COUNT 4.23 10^6/uL (4.35-5.55); RED CELL DISTRIBUTION WIDTH 13.7 % (11.5-14.0); WHITE BLOOD COUNT 9.8 10^3/uL (4.0-10.5)
[2020-08-08 06:08] LABS: INTERNATIONAL RATION (INR) 1.05; PARTIAL THROMBOPLASTIN TIME 27.3 SEC (23.5-35.8); PROTHROMBIN TIME 13.9 SEC (11.4-15.4)
[2020-08-08 06:57] LABS: PLATELET COUNT 73 10^3/uL (150-450)
[2020-08-08 07:09] LABS: ABSOLUTE LYMPHOCYTES# (MANUAL) 1.5 10^3/uL (0.5-4.7); ABSOLUTE MONOCYTES # (MANUAL) 0.7 10^3/uL (0.1-1.4); BAND NEUTROPHILS % (MANUAL) 1 % (3-5); BASOPHILS % (MANUAL) 0 % (0-2); EOSINOPHILS % (MANUAL) 1 % (0-6); LYMPHOCYTES % (MANUAL) 15 % (13-45); MONOCYTES % (MANUAL) 7 % (3-13); SEGMENTED NEUTROPHILS % (MAN) 76 % (42-78); TOTAL CELLS COUNTED 100
[2020-08-08 07:11] LABS: ANISOCYTOSIS SLIGHT; OVALOCYTES SLIGHT; PLATELET COMMENT DECREASED; POIKILOCYTOSIS SLIGHT; TOXIC GRANULATION SLIGHT
--- NOTE | 2020-08-08 08:48 | PDOC PROGRESS REPORT ---
Subjective Date:: 08/08/20 Subjective:: Patient appears a bit confused this morning, but states that he is to have biops y today. No other concerns this morning. Reason For Visit: NEAR SYNCOPE Physical Exam Vital Signs: Temp Pulse Resp BP Pulse Ox 97.5 F 109 H 18 135/77 H 97 08/08/20 00:00 08/08/20 02:00 08/08/20 00:00 08/08/20 00:00 08/08/20 00:00 Intake & Output 08/07/20 08/08/20 08/09/20 06:59 06:59 06:59 Intake Total 5780 1716 1000 Output Total 1130 1225 Balance 4650 491 1000 Weight 90.7 kg 94 kg General appearance: PRESENT: mild distress Respiratory exam: PRESENT: tachypnea Extremities exam: ABSENT: pedal edema Neurological exam: PRESENT: altered Skin exam: PRESENT: normal color Results Laboratory Results: 08/08/20 04:08 08/06/20 03:59 08/08/20 04:08 WBC 9.8 RBC 4.23 L Hgb 12.8 L Hct 38.0 MCV 90 MCH 30.2 MCHC 33.6 RDW 13.7 Plt Count 73 L Seg Neutrophils % Not Reportable 08/05/20 08/05/20 08:50 08:50 Creatine Kinase 114 Troponin I < 0.012 Impressions: Chest X-Ray 08/05/20 08:58 IMPRESSION: HYPERINFLATION. NO ACUTE RADIOGRAPHIC FINDING IN THE CHEST. Abdomen Ultrasound 08/05/20 09:51 IMPRESSION: Nodular appearing liver, multinodular cirrhosis versus liver metastatic disease Multiple stones in the gallbladder without sonographic signs of acute cholecysti tis Echogenic atrophic right kidney Abdomen/Pelvis CT 08/05/20 11:50 IMPRESSION: 1. Suspicious 2.3 cm solid nodule in the right medial lower lobe. This may be amenable to percutaneous sampling. Additionally, there are 2 indeterminate subcentimeter solid nodules in the left lower lobe. Background moderate pulmonary emphysema. 2. Innumerable hepatic metastases. 3. Infrarenal aortic bi-iliac stent graft. 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 4. Multiple bilateral indeterminate renal cortical lesions. Moderately suspicious 9 mm lesion at the inferior pole right kidney. Renal protocol MRI or CT may provide additional information, however many of these are too small to adequately characterize and follow-up may be required. 5. Prostatomegaly. Chest CT 08/05/20 11:51 IMPRESSION: 1. Suspicious 2.3 cm solid nodule in the right medial lower lobe. This may be amenable to percutaneous sampling. Additionally, there are 2 indeterminate subcentimeter solid nodules in the left lower lobe. Background moderate pulmonary emphysema. 2. Innumerable hepatic metastases. 3. Infrarenal aortic bi-iliac stent graft. 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 4. Multiple bilateral indeterminate renal cortical lesions. Moderately suspicious 9 mm lesion at the inferior pole right kidney. Renal protocol MRI or CT may provide additional information, however many of these are too small to adequately characterize and follow-up may be required. 5. Prostatomegaly. Head CT 08/05/20 14:55 IMPRESSION: NORMAL BRAIN CT WITHOUT CONTRAST. EVIDENCE OF ACUTE STROKE: NO. Chest/Abdomen CTA 08/06/20 00:00 IMPRESSION: NO PULMONARY EMBOLI. Assessment & Plan - Diagnosis (1) COPD (chronic obstructive pulmonary disease) Is this a current diagnosis for this admission?: Yes Plan: On appropriate management per primary team. (2) Elevated liver enzymes Is this a current diagnosis for this admission?: Yes (3) Lung nodule Is this a current diagnosis for this admission?: Yes Plan: For CT guided biopsy today of the liver mass. He is NPO and anticoagulation has been held. Await results, but if he is cleared to be discharged, I can review results as outpatient in the office. I spoke with nursing staff as well as the interventional radiologist. All are in agreement with the plan. - Time Time Spent with patient: 15-24 minutes
[2020-08-08] MEDS: ASPIRIN 325 MG TABLET PO SCH (10:02)
[2020-08-08] MEDS: METHIMAZOLE 5 MG TABLET PO SCH (10:05)
[2020-08-08] MEDS: METOPROLOL TARTRATE 25 MG TABLET PO SCH ×2 (10:05→21:15)
[2020-08-08] MEDS: FLUTICASONE/UMECLIDIN/VILANTER 100-62.5-25 MCG/DOSE IH SCH (10:06)
[2020-08-08] MEDS: ENOXAPARIN SODIUM INJ 40 MG/0.4 ML DISP.SYRIN SUBCUT SCH (10:07)
[2020-08-08] MEDS ORDERED: FENTANYL CITRATE INJ/PF 100 MCG/2 ML AMPUL ONE (11:03)
[2020-08-08] MEDS ORDERED: MIDAZOLAM 2 MG/2 ML INJ ONE (11:03)
[2020-08-08 11:56] LABS: PATH REVIEW PATHOLOGIST REVIEWED
--- NOTE | 2020-08-08 12:21 | RADIOLOGY REPORT (SQ) ---
EXAM DESCRIPTION: CT BIOPSY LIVER; CT NEEDLE PLACEMENT IMAGES COMPLETED DATE/TIME: 08/08/2020 12:01 pm REASON FOR STUDY: LIVER MASSES; LIVER BX R55 SYNCOPE AND COLLAPSE COMPARISON: CT chest dated 08/06/2020 TECHNIQUE: After obtaining informed consent and explaining the risks and benefits of conscious sedat ion,the patient agreed to the procedure. The patient was brought to the CT suite and was placed supin e with the right flank elevated on the CT gurney. The patient was prepped and draped in the usual maria g rile fashion. Axial images were obtained for targeting of thehepatic mass in the right lobe of liver . An appropriate access site was selected. IV conscious sedation was administered and physician direc tion by the registered nurse using 1.0 milligrams of Versed and 50 micrograms of fentanyl. Physiologi c monitoring was provided before, during, and after sedation. The total sedation time was 30 minutes. Documentation face to face time, the performing proceduralist, spent monitoring the patient: [address] of the liver was performed to localize an approach for the targeted liver biopsy. A percutaneous site was marked. Time out was performed. After skin prep and local lidocaine for skin and deep tissue anesthesia, a coaxial biopsy needle sys tem was used to obtain several cores of tissue from the large right lobe hepatic mass. These were barajas bmitted to the lab in formalin. No immediate postprocedure complications. Total of 11.[address] fluoro was used. 42 CT Fluoroscopic images were obtained and saved to PACS. All CT scanners at this facility use dose modulation, iterative reconstruction, and/or weight based d osing when appropriate to reduce radiation dose to as low as reasonably achievable (ALARA). [facility]: Dose Right [facility]: CareDose [facility]: Dose Right [facility]: Teradose 4D [facility]: Tzee RADIATION DOSE: CT Rad equipment meets quality standard of care and radiation dose reduction techniq ues were employed. CTDIvol: 4.0 - 20.2 mGy. DLP: 1999 mGy-cm. mGy. LIMITATIONS: None. FINDINGS: CT guided liver biopsy as detailed above. IMPRESSION: CT GUIDED TARGETED LIVER BIOPSY PERFORMED ABOVE. PATHOLOGY PENDING. NO IMMEDIATE C OMPLICATIONS. 6 CORES WERE OBTAINED. COMMENT: Patient medication list reviewed:Yes- Quality ID# [id number]:Eligible professional attests to docu menting in the medical record they obtained, updated, or reviewed the patient's current medications.. Quality ID 145: Final reports for procedures using fluoroscopy that document radiation exposure katia marissa, or exposure time and number of fluorographic images (if radiation exposure indices are not avail able) TECHNICAL DOCUMENTATION: JOB ID: [id number] Quality ID # [id number]: Final reports with documentation of one or more dose reduction techniques (e.g., A utomated exposure control, adjustment of the mA and/or kV according to patient size, use of iterative reconstruction technique) 2010 [employer]- All Rights Reserved Reading location - IP/workstation name: [email or web address]
[2020-08-08] MEDS: CHOLECALCIFEROL (D3) 1,000 UNIT (25 MCG) TABLET PO SCH (12:57)
[2020-08-08] MEDS: POTASSIUM CHLORIDE 10 MEQ TABLET.ER PO SCH ×2 (12:57→17:03)
[2020-08-08 13:36] LABS: HEPATITS B SURFACE ANTIGEN Negative (Negative)
[2020-08-08 15:10] LABS: HEPATITIS C VIRUS ANTIBODY <0.1 s/co ratio (0.0-0.9)
--- NOTE | 2020-08-08 19:10 | PDOC PROGRESS REPORT ---
Subjective Subjective:: Per Previous Physician: "History of Present Illness: LAUREN GOVEA is a 70 year old male who has history of hypertension, aortic aneurysm status post endovascular repair, COPD not on home oxygen. Patient is a former smoker. He does not drink. Patient was scheduled for CT scan outpatient earlier today. Before he underwent the scan, he apparently fell in the bathroom was some head trauma. Patient mentioned that his legs gave out on him. He denied any dizziness. Is not sure if he lost consciousness. Denies any seizure activity or incontinence. He mentioned that he has not been eating as usual for the past 5 days but was able to keep fluids in. Work-up in the emergency room was positive for lung mass with numerous liver metastases. Interval history: 08/06/2020: Patient was seen and examined. He is stable on nasal cannula oxygen. Apparently he desaturated rapidly with minimal exertion. Slightly tachycardic. 08/07/2020: Patient was seen and examined. He is currently stable respiratory chase. CT angiogram negative for PE." 08/08/2020 Patient having liver biopsy reportedly. This may be easier to access tissue than a lung biopsy and probably safer as well. Patient is confused today but he is mostly oriented. He is unable to tell me the exact hospital he is in but otherwise knows who he is and the date. Hepatitis panel is pending. He has no new complaints today. Reason For Visit: NEAR SYNCOPE Physical Exam Vital Signs: Temp Pulse Resp BP Pulse Ox 97.5 F 100 19 120/74 98 08/08/20 13:40 08/08/20 13:40 08/08/20 13:40 08/08/20 13:40 08/08/20 13:40 Intake & Output 08/07/20 08/08/20 08/09/20 06:59 06:59 06:59 Intake Total 5780 1716 2496 Output Total 1130 1225 200 Balance 4650 491 2296 Weight 90.7 kg 94 kg Exam: General appearance: PRESENT: no acute distress, well-developed, well-nourished, chronically ill-appearing Head exam: PRESENT: atraumatic, normocephalic Eye exam: PRESENT: conjunctiva pink. ABSENT: scleral icterus Mouth exam: PRESENT: moist Respiratory exam: PRESENT: clear to auscultation nicole. ABSENT: rales, rhonchi, wheezes Cardiovascular exam: PRESENT: RRR. ABSENT: diastolic murmur, rubs, systolic murmur GI/Abdominal exam: PRESENT: normal bowel sounds, soft. ABSENT: distended, guarding, mass, organolmegaly, rebound, tenderness Neurological exam: PRESENT: alert, awake, oriented to person, oriented to place, mildly confused Psychiatric exam: PRESENT: appropriate affect, normal mood Skin exam: PRESENT: dry, intact, warm Results Laboratory Results: 08/08/20 04:08 08/06/20 03:59 08/08/20 04:08 WBC 9.8 RBC 4.23 L Hgb 12.8 L Hct 38.0 MCV 90 MCH 30.2 MCHC 33.6 RDW 13.7 Plt Count 73 L Seg Neutrophils % Not Reportable 08/05/20 08/05/20 08:50 08:50 Creatine Kinase 114 Troponin I < 0.012 Impressions: Chest X-Ray 08/05/20 08:58 IMPRESSION: HYPERINFLATION. NO ACUTE RADIOGRAPHIC FINDING IN THE CHEST. Abdomen Ultrasound 08/05/20 09:51 IMPRESSION: Nodular appearing liver, multinodular cirrhosis versus liver metastatic disease Multiple stones in the gallbladder without sonographic signs of acute cholecystitis Echogenic atrophic right kidney Abdomen/Pelvis CT 08/05/20 11:50 IMPRESSION: 1. Suspicious 2.3 cm solid nodule in the right medial lower lobe. This may be amenable to percutaneous sampling. Additionally, there are 2 indeterminate subcentimeter solid nodules in the left lower lobe. Background moderate pulmonary emphysema. 2. Innumerable hepatic metastases. 3. Infrarenal aortic bi-iliac stent graft. 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 4. Multiple bilateral indeterminate renal cortical lesions. Moderately suspicious 9 mm lesion at the inferior pole right kidney. Renal protocol MRI or CT may provide additional information, however many of these are too small to adequately characterize and follow-up may be required. 5. Prostatomegaly. Chest CT 08/05/20 11:51 IMPRESSION: 1. Suspicious 2.3 cm solid nodule in the right medial lower lobe. This may be amenable to percutaneous sampling. Additionally, there are 2 indeterminate subcentimeter solid nodules in the left lower lobe. Background moderate pulmonary emphysema. 2. Innumerable hepatic metastases. 3. Infrarenal aortic bi-iliac stent graft. 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 4. Multiple bilateral indeterminate renal cortical lesions. Moderately suspicious 9 mm lesion at the inferior pole right kidney. Renal protocol MRI or CT may provide additional information, however many of these are too small to adequately characterize and follow-up may be required. 5. Prostatomegaly. Head CT 08/05/20 14:55 IMPRESSION: NORMAL BRAIN CT WITHOUT CONTRAST. EVIDENCE OF ACUTE STROKE: NO. Chest/Abdomen CTA 08/06/20 00:00 IMPRESSION: NO PULMONARY EMBOLI. Guidance Needle Placement CT 08/08/20 00:00 IMPRESSION: CT GUIDED TARGETED LIVER BIOPSY PERFORMED ABOVE. PATHOLOGY PENDING. NO IMMEDIATE COMPLICATIONS. 6 CORES WERE OBTAINED. Liver Biopsy CT 08/08/20 00:00 IMPRESSION: CT GUIDED TARGETED LIVER BIOPSY PERFORMED ABOVE. PATHOLOGY PENDING. NO IMMEDIATE COMPLICATIONS. 6 CORES WERE OBTAINED. Assessment and Plan - Diagnosis (1) COPD (chronic obstructive pulmonary disease) Is this a current diagnosis for this admission?: Yes (2) Dehydration Is this a current diagnosis for this admission?: Yes (3) Elevated liver enzymes Is this a current diagnosis for this admission?: Yes (4) HTN (hypertension) Is this a current diagnosis for this admission?: Yes (5) Lung nodule Is this a current diagnosis for this admission?: Yes (6) Metastasis to liver of unknown origin Is this a current diagnosis for this admission?: Yes (7) Near syncope Is this a current diagnosis for this admission?: Yes (8) Tachycardia Is this a current diagnosis for this admission?: Yes - Plan Summary Summary: (1) Near syncope Per Previous Physician: "Ordered echocardiogram. Telemetry monitoring. Negative orthostatic vital signs. My impression is this is most likely just deconditioning and generalized muscle weakness from poor nutrition." Resolved Likely due to dehydration and hypovolemia (2) Dehydration Continue IV fluids. Improved/resolved (3) Elevated liver enzymes Per Previous Physician: "Most likely related to liver metastasis." (4) Lung nodule Highly concerning for malignancy. Scheduled for biopsy. Dr. Ruiz of oncology is following. (5) Metastasis to liver of unknown origin As above (6) Tachycardia Sinus tachycardia. IV fluids as above. Monitor on telemetry. Echocardiogram ordered. Normal TSH. (7) COPD (chronic obstructive pulmonary disease) Not in exacerbation. Continue home medications. Consulted his application technician. (8) HTN (hypertension) Resume home medications. Monitor blood pressure. (8) Acute hypoxemic respiratory failure. Improved. CTA of the chest negative for PE. - Time Time Spent with patient: 15-24 minutes Medications reviewed and adjusted accordingly: Yes Anticipated Discharge Disposition: Home with Home Health Anticipated Discharge Timeframe: within 48 hours - Inpatient Certification Based on my medical assessment, after consideration of the patient's comorbidities, presenting symptoms, or acuity I expect that the services needed warrant INPATIENT care.: Yes I certify that my determination is in accordance with my understanding of [facility]'s requirements for reasonable and necessary INPATIENT services [42 CFR 412.3e].: Yes Medical Necessity: Significant Comorbidiites Make Outpatient Treatment Too Risky, Need Close Monitoring Due to Risk of Patient Decompensation, Need for Surgery, Risk of Complication if Not Cared For in Hospital, Risk of Diagnosis Which Will Require Inpatient Eval/Care/Monitoring
[2020-08-09] MEDS: NORMAL SALINE 1000 ML 1,000 ML IV PRN ×2 (00:51→07:58)
--- NOTE | 2020-08-09 10:09 | XCELERA REPORT ---
[address] [address] Transthoracic Echocardiogram Report Name: LAUREN GOVEA Age: 70 yrs Gender: Male : 1950 Patient Status: Inpatient Patient Location: [facility]^A Study Date: 08/08/2020 02:37 PM History: Near Syncope Height: 74 in Weight: 194 lb BSA: 2.1 m2 Procedure: A complete two-dimensional transthoracic echocardiogram was performed (2D, M-mode, spectral and color flow Doppler). The study was technically difficult with many images being suboptimal in quality. Reason For Study: near syncope Previous Evaluation: No previous studies were available. History: Near Syncope. Ordering Physician: KEVIN MARION Performed By: Isa Hensley Interpretation Summary Study quality is poor due to tachycardia, Suboptimal for valve evaluation. Study quality is poor due to tachycardia, Suboptimal for valve evaluation. Left ventricular systolic function is normal. The Ejection Fraction estimate is 55-60% The right ventricle is normal in size and function. There is a trace amount of mitral regurgitation There is no pericardial effusion. MMode/2D Measurements & Calculations RVDd: 3.6 cm LVIDd: 4.6 cm FS: 39.9 % Ao root diam: 3.1 cm IVSd: 1.1 cm LVIDs: 2.8 cm EDV(Teich): 97.5 ml Ao root area: 7.4 cm2 LVPWd: 0.97 cm ESV(Teich): 28.7 ml EF(Teich): 70.6 % Doppler Measurements & Calculations MV E max byron: MV dec slope: LV V1 max PG: PA V2 max: 62.6 cm/sec 809.6 cm/sec2 1.6 mmHg 130.5 cm/sec MV A max byron: MV dec time: 0.08 secLV V1 max: PA max P.6 cm/sec 62.7 cm/sec 6.8 mmHg MV E/A: 1.1 Left Ventricle The left ventricle is normal in size. There is mild concentric left ventricular hypertrophy. Left ventricular systolic function is normal. The Ejection Fraction estimate is 55-60%. LV diastolic function not assessed. Regional wall motion abnormalities cannot be excluded due to limited visualization. Right Ventricle The right ventricle is normal in size and function. Atria The right atrium is normal. The left atrium is borderline dilated. The interatrial septum is intact with no evidence for an atrial septal defect. There is no Doppler evidence for an interatrial shunt. Mitral Valve The mitral valve is grossly normal. There is a trace amount of mitral regurgitation. Aortic Valve The aortic valve is sclerotic and shows some degree of functional abnormality. The aortic valve opens well. The aortic valve is not well visualized secondary to technical limitations. Subotimal doppler interrogation. Tricuspid Valve The tricuspid valve is not well visualized secondary to technical limitations. Great Vessels The aortic root is normal size. The inferior vena cava appeared small and collapsed with respiration (RAP 0-5 mmHg). Effusions There is no pericardial effusion. : KEVIN MARION Anil
[2020-08-09] MEDS: ENOXAPARIN SODIUM INJ 40 MG/0.4 ML DISP.SYRIN SUBCUT SCH (10:59)
[2020-08-09] MEDS: FLUTICASONE/UMECLIDIN/VILANTER 100-62.5-25 MCG/DOSE IH SCH (10:59)
[2020-08-09] MEDS: ASPIRIN 325 MG TABLET PO SCH (10:59)
[2020-08-09] MEDS: METHIMAZOLE 5 MG TABLET PO SCH (11:00)
[2020-08-09] MEDS: METOPROLOL TARTRATE 25 MG TABLET PO SCH ×2 (11:00→22:35)
[2020-08-09] MEDS: CHOLECALCIFEROL (D3) 1,000 UNIT (25 MCG) TABLET PO SCH (11:01)
[2020-08-09] MEDS: POTASSIUM CHLORIDE 10 MEQ TABLET.ER PO SCH ×2 (11:02→17:22)
--- NOTE | 2020-08-09 18:30 | PDOC PROGRESS REPORT ---
Subjective Subjective:: Per Previous Physician: "History of Present Illness: LAUREN GOVEA is a 70 year old male who has history of hypertension, aortic aneurysm status post endovascular repair, COPD not on home oxygen. Patient is a former smoker. He does not drink. Patient was scheduled for CT scan outpatient earlier today. Before he underwent the scan, he apparently fell in the bathroom was some head trauma. Patient mentioned that his legs gave out on him. He denied any dizziness. Is not sure if he lost consciousness. Denies any seizure activity or incontinence. He mentioned that he has not been eating as usual for the past 5 days but was able to keep fluids in. Work-up in the emergency room was positive for lung mass with numerous liver metastases. Interval history: 08/06/2020: Patient was seen and examined. He is stable on nasal cannula oxygen. Apparently he desaturated rapidly with minimal exertion. Slightly tachycardic. 08/07/2020: Patient was seen and examined. He is currently stable respiratory hcase. CT angiogram negative for PE." 08/08/2020 Patient having liver biopsy reportedly. This may be easier to access tissue than a lung biopsy and probably safer as well. Patient is confused today but he is mostly oriented. He is unable to tell me the exact hospital he is in but otherwise knows who he is and the date. Hepatitis panel is pending. He has no new complaints today. 08/09/2020 Patient seems to be more clear headed today is now almost fully oriented. His biopsy results were pending during my encounter today. I did speak with Dr. Jurado later in the afternoon and she stated the patient has confirmed lung cancer and she plans to discuss this with the patient and his tomorrow to determine aggressive treatment with chemotherapy versus home with hospice. Patient cannot go to a rehab facility while also receiving chemotherapy. If he is too weak to go home with home health, Dr. Jurado believes he may be too weak to receive chemotherapy anyway. If that is the case, it may be best to send him to rehab for a few weeks in order to get him strong enough for chemotherapy. I will defer to her discussion with the family and the patient tomorrow. Likely can be discharged home with home health versus SNF tomorrow. Reason For Visit: NEAR SYNCOPE Physical Exam Vital Signs: Temp Pulse Resp BP Pulse Ox 97.8 F 120 H 24 H 131/71 H 93 08/09/20 11:56 08/09/20 11:56 08/09/20 11:56 08/09/20 11:56 08/09/20 11:56 Intake & Output 08/08/20 08/09/20 08/10/20 06:59 06:59 06:59 Intake Total 1716 3616 1691 Output Total 1225 350 245 Balance 491 3266 1446 Weight 94 kg 94 kg 94 kg Exam: General appearance: PRESENT: no acute distress, well-developed, well-nourished, chronically ill-appearing, speaking much more clearly today and more oriented Head exam: PRESENT: atraumatic, normocephalic Eye exam: PRESENT: conjunctiva pink. ABSENT: scleral icterus Mouth exam: PRESENT: moist Respiratory exam: PRESENT: clear to auscultation nicole. ABSENT: rales, rhonchi, wheezes Cardiovascular exam: PRESENT: RRR. ABSENT: diastolic murmur, rubs, systolic murmur GI/Abdominal exam: PRESENT: normal bowel sounds, soft. ABSENT: distended, guard ing, mass, organolmegaly, rebound, tenderness Neurological exam: PRESENT: alert, awake, oriented to person, oriented to place, general date and disposition Psychiatric exam: PRESENT: appropriate affect, normal mood Skin exam: PRESENT: dry, intact, warm Results Laboratory Results: 08/08/20 04:08 08/06/20 03:59 08/05/20 08/05/20 08:50 08:50 Creatine Kinase 114 Troponin I < 0.012 Impressions: Chest X-Ray 08/05/20 08:58 IMPRESSION: HYPERINFLATION. NO ACUTE RADIOGRAPHIC FINDING IN THE CHEST. Abdomen Ultrasound 08/05/20 09:51 IMPRESSION: Nodular appearing liver, multinodular cirrhosis versus liver metastatic disease Multiple stones in the gallbladder without sonographic signs of acute cholecystitis Echogenic atrophic right kidney Abdomen/Pelvis CT 08/05/20 11:50 IMPRESSION: 1. Suspicious 2.3 cm solid nodule in the right medial lower lobe. This may be amenable to percutaneous sampling. Additionally, there are 2 indeterminate subcentimeter solid nodules in the left lower lobe. Background moderate pulmonary emphysema. 2. Innumerable hepatic metastases. 3. Infrarenal aortic bi-iliac stent graft. 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 4. Multiple bilateral indeterminate renal cortical lesions. Moderately susp icious 9 mm lesion at the inferior pole right kidney. Renal protocol MRI or CT may provide additional information, however many of these are too small to adequately characterize and follow-up may be required. 5. Prostatomegaly. Chest CT 08/05/20 11:51 IMPRESSION: 1. Suspicious 2.3 cm solid nodule in the right medial lower lobe. This may be amenable to percutaneous sampling. Additionally, there are 2 indeterminate subcentimeter solid nodules in the left lower lobe. Background moderate pulmonary emphysema. 2. Innumerable hepatic metastases. 3. Infrarenal aortic bi-iliac stent graft. 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 4. Multiple bilateral indeterminate renal cortical lesions. Moderately suspicious 9 mm lesion at the inferior pole right kidney. Renal protocol MRI or CT may provide additional information, however many of these are too small to adequately characterize and follow-up may be required. 5. Prostatomegaly. Head CT 08/05/20 14:55 IMPRESSION: NORMAL BRAIN CT WITHOUT CONTRAST. EVIDENCE OF ACUTE STROKE: NO. Chest/Abdomen CTA 08/06/20 00:00 IMPRESSION: NO PULMONARY EMBOLI. Guidance Needle Placement CT 08/08/20 00:00 IMPRESSION: CT GUIDED TARGETED LIVER BIOPSY PERFORMED ABOVE. PATHOLOGY PENDING. NO IMMEDIATE COMPLICATIONS. 6 CORES WERE OBTAINED. Liver Biopsy CT 08/08/20 00:00 IMPRESSION: CT GUIDED TARGETED LIVER BIOPSY PERFORMED ABOVE. PATHOLOGY PENDING. NO IMMEDIATE COMPLICATIONS. 6 CORES WERE OBTAINED. Assessment and Plan - Diagnosis (1) COPD (chronic obstructive pulmonary disease) Is this a current diagnosis for this admission?: Yes (2) Dehydration Is this a current diagnosis for this admission?: Yes (3) Elevated liver enzymes Is this a current diagnosis for this admission?: Yes (4) HTN (hypertension) Is this a current diagnosis for this admission?: Yes (5) Lung nodule Is this a current diagnosis for this admission?: Yes (6) Metastasis to liver of unknown origin Is this a current diagnosis for this admission?: Yes (7) Near syncope Is this a current diagnosis for this admission?: Yes (8) Tachycardia Is this a current diagnosis for this admission?: Yes - Plan Summary Summary: Per Previous Physician: "History of Present Illness: LAUREN GOVEA is a 70 year old male who has history of hypertension, aortic aneurysm status post endovascular repair, COPD not on home oxygen. Patient is a former smoker. He does not drink. Patient was scheduled for CT scan outpatient earlier today. Before he underwent the scan, he apparently fell in the bathroom was some head trauma. Patient mentioned that his legs gave out on him. He denied any dizziness. Is not sure if he lost consciousness. Denies any seizure activity or incontinence. He mentioned that he has not been eating as usual for the past 5 days but was able to keep fluids in. Work-up in the emergency room was positive for lung mass with numerous liver metastases. Interval history: 08/06/2020: Patient was seen and examined. He is stable on nasal cannula oxygen. Apparently he desaturated rapidly with minimal exertion. Slightly tachycardic. 08/07/2020: Patient was seen and examined. He is currently stable respiratory chase. CT angiogram negative for PE." 08/08/2020 Patient having liver biopsy reportedly. This may be easier to access tissue than a lung biopsy and probably safer as well. Patient is confused today but he is mostly oriented. He is unable to tell me the exact hospital he is in but otherwise knows who he is and the date. Hepatitis panel is pending. He has no new complaints today. (1) Near syncope Per Previous Physician: "Ordered echocardiogram. Telemetry monitoring. Negative orthostatic vital signs. My impression is this is most likely just deconditioning and generalized muscle weakness from poor nutrition." Resolved Likely due to dehydration and hypovolemia (2) Dehydrationresolved Continue IV fluids. Improved/resolved (3) Elevated liver enzymes Per Previous Physician: "Most likely related to liver metastasis." (4) Lung nodule Highly concerning for malignancy. Status post biopsy. Dr. Ruiz of oncology is following. Pathology confirms lung cancer (5) Metastasis to liver of unknown origin As above (6) Tachycardia Sinus tachycardia. IV fluids as above. Monitor on telemetry. Echocardiogram ordered. Normal TSH. (7) COPD (chronic obstructive pulmonary disease) Not in exacerbation. Continue home medications. 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 (8) HTN (hypertension) Resume home medications. Monitor blood pressure. (8) Acute hypoxemic respiratory failure. Improved. CTA of the chest negative for PE. - Time Time Spent with patient: 15-24 minutes Medications reviewed and adjusted accordingly: Yes Anticipated Discharge Disposition: Home, Self Care Anticipated Discharge Timeframe: within 24 hours - Inpatient Certification Based on my medical assessment, after consideration of the patient's comorbidities, presenting symptoms, or acuity I expect that the services needed warrant INPATIENT care.: Yes I certify that my determination is in accordance with my understanding of Medicare's requirements for reasonable and necessary INPATIENT services [42 CFR 412.3e].: Yes Medical Necessity: Significant Comorbidiites Make Outpatient Treatment Too Risky, Need Close Monitoring Due to Risk of Patient Decompensation, Risk of Complication if Not Cared For in Hospital, Risk of Diagnosis Which Will Require Inpatient Eval/Care/Monitoring
[2020-08-10 06:00] LABS: HEMATOCRIT 36.8 % (37.9-51.0); HEMOGLOBIN 12.6 g/dL (13.5-17.0); MEAN CORPUSCULAR HEMOGLOBIN 30.8 pg (27.0-33.4); MEAN CORPUSCULAR HGB CONC 34.3 g/dL (32.0-36.0); MEAN CORPUSCULAR VOLUME 90 fl (80-97); RED CELL DISTRIBUTION WIDTH 13.8 % (11.5-14.0); WHITE BLOOD COUNT 10.4 10^3/uL (4.0-10.5)
[2020-08-10 06:04] LABS: ANION GAP 5 (5-19); BLOOD UREA NITROGEN 31 mg/dL (7-20); CALCIUM 10.5 mg/dL (8.4-10.2); CARBON DIOXIDE 22 mmol/L (22-30); CHLORIDE 114 mmol/L (98-107); GLUCOSE 87 mg/dL (75-110); POTASSIUM 5.1 mmol/L (3.6-5.0)
[2020-08-10 06:38] LABS: PLATELET COUNT 98 10^3/uL (150-450)
[2020-08-10 06:49] LABS: ABSOLUTE LYMPHOCYTES# (MANUAL) 0.6 10^3/uL (0.5-4.7); ABSOLUTE MONOCYTES # (MANUAL) 1.1 10^3/uL (0.1-1.4); BAND NEUTROPHILS % (MANUAL) 2 % (3-5); BASOPHILS % (MANUAL) 0 % (0-2); EOSINOPHILS % (MANUAL) 0 % (0-6); LYMPHOCYTES % (MANUAL) 6 % (13-45); METAMYELOCYTES % (MANUAL) 1 % (0-1); MONOCYTES % (MANUAL) 11 % (3-13); PLATELET COMMENT DECREASED; RBC MORPHOLOGY COMMENT NORMO-CYTIC/CHROMIC; SEGMENTED NEUTROPHILS % (MAN) 80 % (42-78); TOTAL CELLS COUNTED 100; TOXIC VACUOLATION PRESENT
--- NOTE | 2020-08-10 08:03 | PDOC PROGRESS REPORT ---
Subjective Date:: 08/10/20 Subjective:: Patient was seen with by speaker phone. He denies new problems today. Nakul ses state that he is sometimes confused. His respiratory rate and heart rate have remained elevated. He uses CPAP at night, but has not required O2 during the day. He is eating well, but is getting weaker every day and is leaning to one side. states his speech is not as clear today. Reason For Visit: NEAR SYNCOPE Physical Exam Vital Signs: Temp Pulse Resp BP Pulse Ox 97.7 F 132 H 18 137/74 H 93 08/09/20 23:58 08/10/20 07:00 08/09/20 23:58 08/09/20 23:58 08/09/20 23:58 Intake & Output 08/09/20 08/10/20 08/11/20 06:59 06:59 06:59 Intake Total 3616 1931 Output Total 350 1320 Balance 3266 611 Weight 94 kg 94 kg General appearance: PRESENT: no acute distress Head exam: PRESENT: normocephalic Respiratory exam: PRESENT: tachypnea Cardiovascular exam: PRESENT: tachycardia Extremities exam: ABSENT: pedal edema Musculoskeletal exam: PRESENT: normal inspection Neurological exam: PRESENT: alert, awake Psychiatric exam: PRESENT: appropriate affect Skin exam: PRESENT: normal color Results Laboratory Results: 08/10/20 04:04 08/10/20 04:04 08/10/20 08/10/20 04:04 04:04 WBC 10.4 RBC 4.10 L Hgb 12.6 L Hct 36.8 L MCV 90 MCH 30.8 MCHC 34.3 RDW 13.8 Plt Count 98 L Seg Neutrophils % Not Reportable Sodium 140.6 Potassium 5.1 H Chloride 114 H Carbon Dioxide 22 Anion Gap 5 BUN 31 H Creatinine 0.96 Est GFR ( Amer) > 60 Glucose 87 Calcium 10.5 H 08/05/20 08/05/20 08:50 08:50 Creatine Kinase 114 Troponin I < 0.012 Impressions: Chest X-Ray 08/05/20 08:58 IMPRESSION: HYPERINFLATION. NO ACUTE RADIOGRAPHIC FINDING IN THE CHEST. Abdomen Ultrasound 08/05/20 09:51 IMPRESSION: Nodular appearing liver, multinodular cirrhosis versus liver metastatic disease Multiple stones in the gallbladder without sonographic signs of acute cholecystitis Echogenic atrophic right kidney Abdomen/Pelvis CT 08/05/20 11:50 IMPRESSION: 1. Suspicious 2.3 cm solid nodule in the right medial lower lobe. This may be amenable to percutaneous sampling. Additionally, there are 2 indeterminate subcentimeter solid nodules in the left lower lobe. Background moderate pulmonary emphysema. 2. Innumerable hepatic metastases. 3. Infrarenal aortic bi-iliac stent graft. 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 4. Multiple bilateral indeterminate renal cortical lesions. Moderately suspicious 9 mm lesion at the inferior pole right kidney. Renal protocol MRI or CT may provide additional information, however many of these are too small to adequately characterize and follow-up may be required. 5. Prostatomegaly. Chest CT 08/05/20 11:51 IMPRESSION: 1. Suspicious 2.3 cm solid nodule in the right medial lower lobe. This may be amenable to percutaneous sampling. Additionally, there are 2 indeterminate subcentimeter solid nodules in the left lower lobe. Background moderate pulmonary emphysema. 2. Innumerable hepatic metastases. 3. Infrarenal aortic bi-iliac stent graft. 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 4. Multiple bilateral indeterminate renal cortical lesions. Moderately suspi cious 9 mm lesion at the inferior pole right kidney. Renal protocol MRI or CT may provide additional information, however many of these are too small to adequately characterize and follow-up may be required. 5. Prostatomegaly. Head CT 08/05/20 14:55 IMPRESSION: NORMAL BRAIN CT WITHOUT CONTRAST. EVIDENCE OF ACUTE STROKE: NO. Chest/Abdomen CTA 08/06/20 00:00 IMPRESSION: NO PULMONARY EMBOLI. Guidance Needle Placement CT 08/08/20 00:00 IMPRESSION: CT GUIDED TARGETED LIVER BIOPSY PERFORMED ABOVE. PATHOLOGY PENDING. NO IMMEDIATE COMPLICATIONS. 6 CORES WERE OBTAINED. Liver Biopsy CT 08/08/20 00:00 IMPRESSION: CT GUIDED TARGETED LIVER BIOPSY PERFORMED ABOVE. PATHOLOGY PENDING. NO IMMEDIATE COMPLICATIONS. 6 CORES WERE OBTAINED. Assessment & Plan - Diagnosis (1) COPD (chronic obstructive pulmonary disease) Is this a current diagnosis for this admission?: Yes (2) Elevated liver enzymes Is this a current diagnosis for this admission?: Yes (3) Lung nodule Is this a current diagnosis for this admission?: Yes (4) Lung cancer Is this a current diagnosis for this admission?: Yes Plan: with mets to the liver. Stage IV. I explained to the patient nad that this type of neuroendocrine cancer is usually very responsive to chemotherapy. However, he needs to be strong enough to start the chemo. Chemo cannot be given while he is admitted to a SNF/rehab unit. Since this is not curable, he may elect Hospice services. However, if full treatment is chosen, then I would like to get MRI brain to make sure no brain mets prior to starting chemo. He agrees with the MRI scan and he will discuss with the family and decide on chemo DON. He may receive a cycle while inpatient, then transfer to rehab for strengthening . I will discuss further with patient and family tomorrow, after they have all discussed further and once results of MRI are known. - Time Time Spent with patient: 15-24 minutes
[2020-08-10] MEDS ORDERED: RINGERS SOLUTION,LACTATED 1,000 ML IV PRN (08:49)
[2020-08-10] MEDS: ASPIRIN 325 MG TABLET PO SCH (09:42)
[2020-08-10] MEDS: ENOXAPARIN SODIUM INJ 40 MG/0.4 ML DISP.SYRIN SUBCUT SCH (09:42)
[2020-08-10] MEDS: METOPROLOL TARTRATE 50 MG TABLET PO SCH ×2 (09:45→21:59)
[2020-08-10] MEDS: CHOLECALCIFEROL (D3) 1,000 UNIT (25 MCG) TABLET PO SCH (09:45)
[2020-08-10] MEDS: METHIMAZOLE 5 MG TABLET PO SCH (09:46)
[2020-08-10] MEDS: FLUTICASONE/UMECLIDIN/VILANTER 100-62.5-25 MCG/DOSE IH SCH (09:47)
[2020-08-10] MEDS ORDERED: BISACODYL 5 MG TABEC PO PRN (14:16)
[2020-08-10] MEDS ORDERED: BISACODYL 10 MG SUPP.RECT PR PRN (14:17)
[2020-08-10] MEDS ORDERED: NA PHOS,M-B/NA PHOS,DI-BA (ADULT) 133 ML ENEMA PR PRN (14:18)
--- NOTE | 2020-08-10 15:32 | RADIOLOGY REPORT (SQ) ---
EXAM DESCRIPTION: CHEST 2 VIEWS IMAGES COMPLETED DATE/TIME: 08/10/2020 2:36 pm REASON FOR STUDY: PT/Lateral, PNA COMPARISON: CT of the chest with contrast from 08/06/2020. EXAM PARAMETERS: NUMBER OF VIEWS: Two views. TECHNIQUE: An AP view of the chest was obtained. RADIATION DOSE: NA LIMITATIONS: None. FINDINGS: LUNGS AND PLEURA: Patchy opacities in the right lower lobe. The posterior right costophre tiara sulcus is blunted. The right lower lobe nodule described on the correlative CT is inconspicuous on the radiograph. There is no pneumothorax. MEDIASTINUM AND HILAR STRUCTURES: No mediastinal or hilar contour abnormality. HEART AND VASCULAR STRUCTURES: The cardiac silhouette and pulmonary vasculature are within normal todd its. BONES: No acute findings. HARDWARE: None in the chest. OTHER: No other finding. IMPRESSION: Findings concerning for right lower lobe pneumonia. TECHNICAL DOCUMENTATION: JOB ID: [id number] 2010 [employer]- All Rights Reserved Reading location - IP/workstation name: [email or web address]
--- NOTE | 2020-08-10 16:26 | PDOC PROGRESS REPORT ---
Subjective Subjective:: Per Previous Physician: "History of Present Illness: LAUREN GOVEA is a 70 year old male who has history of hypertension, aortic aneurysm status post endovascular repair, COPD not on home oxygen. Patient is a former smoker. He does not drink. Patient was scheduled for CT scan outpatient earlier today. Before he underwent the scan, he apparently fell in the bathroom was some head trauma. Patient mentioned that his legs gave out on him. He denied any dizziness. Is not sure if he lost consciousness. Denies any seizure activity or incontinence. He mentioned that he has not been eating as usual for the past 5 days but was able to keep fluids in. Work-up in the emergency room was positive for lung mass with numerous liver metastases. Interval history: 08/06/2020: Patient was seen and examined. He is stable on nasal cannula oxygen. Apparently he desaturated rapidly with minimal exertion. Slightly tachycardic. 08/07/2020: Patient was seen and examined. He is currently stable respiratory chase. CT angiogram negative for PE." 08/08/2020 Patient having liver biopsy reportedly. This may be easier to access tissue than a lung biopsy and probably safer as well. Patient is confused today but he is mostly oriented. He is unable to tell me the exact hospital he is in but otherwise knows who he is and the date. Hepatitis panel is pending. He has no new complaints today. 08/09/2020 Patient seems to be more clear headed today is now almost fully oriented. His biopsy results were pending during my encounter today. I did speak with Dr. Jurado later in the afternoon and she stated the patient has confirmed lung cancer and she plans to discuss this with the patient and his tomorrow to determine aggressive treatment with chemotherapy versus home with hospice. Patient cannot go to a rehab facility while also receiving chemotherapy. If he is too weak to go home with home health, Dr. Jurado believes he may be too weak to receive chemotherapy anyway. If that is the case, it may be best to send him to rehab for a few weeks in order to get him strong enough for chemotherapy. I will defer to her discussion with the family and the patient tomorrow. Likely can be discharged home with home health versus SNF tomorrow. 08/10/2020 Pt more alert and mentating better however he seems bit more congested today, white blood cells are trending upwards with a left shift. I obtained a PA/ lateral chest x-ray which showed possible right lower lobe pneumonia. I will start him on ceftriaxone/azithromycin given the aforementioned trends towards developing infection. Patient denies any other complaints that might localize an alternate source of infection. He will likely continue to have postobstructive pneumonia until his lung cancer is definitively treated. I spoke with Dr. Jurado and she is reportedly helping the patient and his family figure out a treatment course. Possible that the patient to get a dose of chemotherapy here and then be discharged to a rehab facility where he can get strong enough to have future doses of chemotherapy. Patient and his family are still deciding this. Reason For Visit: NEAR SYNCOPE Physical Exam Vital Signs: Temp Pulse Resp BP Pulse Ox 98.0 F 113 H 28 H 130/71 H 97 08/10/20 11:00 08/10/20 11:00 08/10/20 11:00 08/10/20 11:00 08/10/20 11:00 Intake & Output 08/09/20 08/10/20 08/11/20 06:59 06:59 06:59 Intake Total 3616 1931 Output Total 350 1320 Balance 3266 611 Weight 94 kg 94 kg Exam: General appearance: PRESENT: no acute distress, well-developed, well-nourished, chronically ill-appearing, mildly congested while speaking Head exam: PRESENT: atraumatic, normocephalic Eye exam: PRESENT: conjunctiva pink. ABSENT: scleral icterus Mouth exam: PRESENT: moist Respiratory exam: PRESENT: Scant crackles right lower lung field ABSENT: rales, wheezes Cardiovascular exam: PRESENT: RRR. ABSENT: diastolic murmur, rubs, systolic murmur GI/Abdominal exam: PRESENT: normal bowel sounds, soft. ABSENT: distended, guarding, mass, organolmegaly, rebound, tenderness Neurological exam: PRESENT: alert, awake, oriented to person, oriented to place, general date and disposition Psychiatric exam: PRESENT: appropriate affect, normal mood Skin exam: PRESENT: dry, intact, warm Results Laboratory Results: 08/10/20 04:04 08/10/20 04:04 08/10/20 08/10/20 08/10/20 04:04 04:04 04:04 WBC 10.4 RBC 4.10 L Hgb 12.6 L Hct 36.8 L MCV 90 MCH 30.8 MCHC 34.3 RDW 13.8 Plt Count 98 L Seg Neutrophils % Not Reportable Sodium 140.6 Potassium 5.1 H Chloride 114 H Carbon Dioxide 22 Anion Gap 5 BUN 31 H Creatinine 0.96 Est GFR ( Amer) > 60 Glucose 87 Calcium 10.5 H TSH 2.55 08/05/20 08/05/20 08:50 08:50 Creatine Kinase 114 Troponin I < 0.012 Impressions: Abdomen Ultrasound 08/05/20 09:51 IMPRESSION: Nodular appearing liver, multinodular cirrhosis versus liver meta static disease Multiple stones in the gallbladder without sonographic signs of acute cholecystitis Echogenic atrophic right kidney Abdomen/Pelvis CT 08/05/20 11:50 IMPRESSION: 1. Suspicious 2.3 cm solid nodule in the right medial lower lobe. This may be amenable to percutaneous sampling. Additionally, there are 2 indeterminate subcentimeter solid nodules in the left lower lobe. Background moderate pulmonary emphysema. 2. Innumerable hepatic metastases. 3. Infrarenal aortic bi-iliac stent graft. 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 4. Multiple bilateral indeterminate renal cortical lesions. Moderately suspicious 9 mm lesion at the inferior pole right kidney. Renal protocol MRI or CT may provide additional information, however many of these are too small to adequately characterize and follow-up may be required. 5. Prostatomegaly. Chest CT 08/05/20 11:51 IMPRESSION: 1. Suspicious 2.3 cm solid nodule in the right medial lower lobe. This may be amenable to percutaneous sampling. Additionally, there are 2 indeterminate subcentimeter solid nodules in the left lower lobe. Background moderate pulmonary emphysema. 2. Innumerable hepatic metastases. 3. Infrarenal aortic bi-iliac stent graft. 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 4. Multiple bilateral indeterminate renal cortical lesions. Moderately suspicious 9 mm lesion at the inferior pole right kidney. Renal protocol MRI or CT may provide additional information, however many of these are too small to adequately characterize and follow-up may be required. 5. Prostatomegaly. Head CT 08/05/20 14:55 IMPRESSION: NORMAL BRAIN CT WITHOUT CONTRAST. EVIDENCE OF ACUTE STROKE: NO. Chest/Abdomen CTA 08/06/20 00:00 IMPRESSION: NO PULMONARY EMBOLI. Guidance Needle Placement CT 08/08/20 00:00 IMPRESSION: CT GUIDED TARGETED LIVER BIOPSY PERFORMED ABOVE. PATHOLOGY PENDING. NO IMMEDIATE COMPLICATIONS. 6 CORES WERE OBTAINED. Liver Biopsy CT 08/08/20 00:00 IMPRESSION: CT GUIDED TARGETED LIVER BIOPSY PERFORMED ABOVE. PATHOLOGY PENDING. NO IMMEDIATE COMPLICATIONS. 6 CORES WERE OBTAINED. Chest X-Ray 08/10/20 08:30 IMPRESSION: Findings concerning for right lower lobe pneumonia. Assessment and Plan - Diagnosis (1) COPD (chronic obstructive pulmonary disease) Is this a current diagnosis for this admission?: Yes (2) Dehydration Is this a current diagnosis for this admission?: Yes (3) Elevated liver enzymes Is this a current diagnosis for this admission?: Yes (4) HTN (hypertension) Is this a current diagnosis for this admission?: Yes (5) Lung nodule Is this a current diagnosis for this admission?: Yes (6) Metastasis to liver of unknown origin Is this a current diagnosis for this admission?: Yes (7) Near syncope Is this a current diagnosis for this admission?: Yes (8) Tachycardia Is this a current diagnosis for this admission?: Yes (9) Obstructive pneumonia Is this a current diagnosis for this admission?: Yes Plan: Rising white blood cell count, congested cough, known lung cancer Ceftriaxone/azithromycin started; if no improvement may need to expand to a stronger agent such as fluoroquinolone or equivalent, noting patient has penicillin allergy - Plan Summary Summary: Per Previous Physician: "History of Present Illness: LAUREN GOVEA is a 70 year old male who has history of hypertension, aortic aneurysm status post endovascular repair, COPD not on home oxygen. Patient is a former smoker. He does not drink. Patient was scheduled for CT scan outpatient earlier today. Before he underwent the scan, he apparently fell in the bathroom was some head trauma. Patient mentioned that his legs gave out on him. He denied any dizziness. Is not sure if he lost consciousness. Denies any seizure activity or incontinence. He mentioned that he has not been eating as usual for the past 5 days but was able to keep fluids in. Work-up in the emergency room was positive for lung mass with numerous liver metastases. Interval history: 08/06/2020: Patient was seen and examined. He is stable on nasal cannula oxygen. Apparently he desaturated rapidly with minimal exertion. Slightly tachycardic. 08/07/2020: Patient was seen and examined. He is currently stable respiratory chase. CT angiogram negative for PE." 08/08/2020 Patient having liver biopsy reportedly. This may be easier to access tissue t khan a lung biopsy and probably safer as well. Patient is confused today but he is mostly oriented. He is unable to tell me the exact hospital he is in but otherwise knows who he is and the date. Hepatitis panel is pending. He has no new complaints today. Obstructive pneumonia Rising WBC, congested cough, known lung cancer Start ceftriaxone/azithromycin Near syncope Per Previous Physician: "Ordered echocardiogram. Telemetry monitoring. Negative orthostatic vital signs. My impression is this is most likely just deconditioning and generalized muscle weakness from poor nutrition." Resolved Likely due to dehydration and hypovolemia Dehydrationresolved Continue IV fluids. Improved/resolved Elevated liver enzymes Per Previous Physician: "Most likely related to liver metastasis." Lung nodule Highly concerning for malignancy. Status post biopsy. Dr. Ruiz of oncology is following. Pathology confirms neuroendocrine lung cancer Metastasis to liver of unknown origin As above Tachycardia Sinus tachycardia. IV fluids as above. Monitor on telemetry. Echocardiogram ordered. Normal TSH. COPD (chronic obstructive pulmonary disease) Not in exacerbation. Continue home medications. 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 HTN (hypertension) Resume home medications. Monitor blood pressure. Acute hypoxemic respiratory failure. Improved. CTA of the chest negative for PE. - Time Time Spent with patient: 25-34 minutes Medications reviewed and adjusted accordingly: Yes Anticipated Discharge Disposition: Home with Home Health Anticipated Discharge Timeframe: within 48 hours - Inpatient Certification Based on my medical assessment, after consideration of the patient's comorbidities, presenting symptoms, or acuity I expect that the services needed warrant INPATIENT care.: Yes I certify that my determination is in accordance with my understanding of Medicare's requirements for reasonable and necessary INPATIENT services [42 CFR 412.3e].: Yes Medical Necessity: Significant Comorbidiites Make Outpatient Treatment Too Risk y, Need Close Monitoring Due to Risk of Patient Decompensation, Need for IV Antibiotics, Risk of Complication if Not Cared For in Hospital, Risk of Diagnosis Which Will Require Inpatient Eval/Care/Monitoring
[2020-08-10] MEDS ORDERED: CEFTRIAXONE 2 GM/D5W RTU 2 GM/50 ML RTUPB IV SCH (18:00)
[2020-08-10] MEDS ORDERED: AZITHROMYCIN INJ 500 MG VIAL IV SCH (22:00)
[2020-08-10] MEDS: AZITHROMYCIN 500 MG in DEXTROSE 5%-WATER 250 ML IV SCH (22:00)
--- NOTE | 2020-08-11 07:19 | PDOC PROGRESS REPORT ---
Subjective Date:: 08/11/20 Subjective:: Patient remains confused today. Denies pain, dyspnea, or constipation. States that he is eating well. He states that he "needs to get approval" before deciding on further therapy. Nursing staff reports that MRI ordered yesterday could not be done due to unknown stents. Reason For Visit: NEAR SYNCOPE Physical Exam Vital Signs: Temp Pulse Resp BP Pulse Ox 97.5 F 115 H 21 H 132/70 H 95 08/10/20 23:49 08/11/20 02:00 08/10/20 23:49 08/10/20 23:49 08/10/20 23:49 Intake & Output 08/10/20 08/11/20 08/12/20 06:59 06:59 06:59 Intake Total 1931 760 Output Total 1320 Balance 611 760 Weight 94 kg 94 kg General appearance: PRESENT: mild distress Head exam: PRESENT: normocephalic Eye exam: PRESENT: EOMI Mouth exam: PRESENT: dry mucosa Respiratory exam: PRESENT: clear to auscultation nicole, tachypnea Cardiovascular exam: PRESENT: RRR Musculoskeletal exam: PRESENT: normal inspection Neurological exam: PRESENT: alert, awake, other - slurred speech. Psychiatric exam: PRESENT: appropriate affect Skin exam: PRESENT: normal color Results Laboratory Results: 08/10/20 04:04 08/10/20 04:04 08/10/20 04:04 TSH 2.55 08/05/20 08/05/20 08:50 08:50 Creatine Kinase 114 Troponin I < 0.012 Impressions: Abdomen Ultrasound 08/05/20 09:51 IMPRESSION: Nodular appearing liver, multinodular cirrhosis versus liver metastatic disease Multiple stones in the gallbladder without sonographic signs of acute cholecystitis Echogenic atrophic right kidney Abdomen/Pelvis CT 08/05/20 11:50 IMPRESSION: 1. Suspicious 2.3 cm solid nodule in the right medial lower lobe. This may be amenable to percutaneous sampling. Additionally, there are 2 indeterminate subc entimeter solid nodules in the left lower lobe. Background moderate pulmonary emphysema. 2. Innumerable hepatic metastases. 3. Infrarenal aortic bi-iliac stent graft. 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 4. Multiple bilateral indeterminate renal cortical lesions. Moderately suspicious 9 mm lesion at the inferior pole right kidney. Renal protocol MRI or CT may provide additional information, however many of these are too small to adequately characterize and follow-up may be required. 5. Prostatomegaly. Chest CT 08/05/20 11:51 IMPRESSION: 1. Suspicious 2.3 cm solid nodule in the right medial lower lobe. This may be amenable to percutaneous sampling. Additionally, there are 2 indeterminate subcentimeter solid nodules in the left lower lobe. Background moderate pulmonary emphysema. 2. Innumerable hepatic metastases. 3. Infrarenal aortic bi-iliac stent graft. 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 4. Multiple bilateral indeterminate renal cortical lesions. Moderately suspicious 9 mm lesion at the inferior pole right kidney. Renal protocol MRI or CT may provide additional information, however many of these are too small to adequately characterize and follow-up may be required. 5. Prostatomegaly. Head CT 08/05/20 14:55 IMPRESSION: NORMAL BRAIN CT WITHOUT CONTRAST. EVIDENCE OF ACUTE STROKE: NO. Chest/Abdomen CTA 08/06/20 00:00 IMPRESSION: NO PULMONARY EMBOLI. Guidance Needle Placement CT 08/08/20 00:00 IMPRESSION: CT GUIDED TARGETED LIVER BIOPSY PERFORMED ABOVE. PATHOLOGY PENDING. NO IMMEDIATE COMPLICATIONS. 6 CORES WERE OBTAINED. Liver Biopsy CT 08/08/20 00:00 IMPRESSION: CT GUIDED TARGETED LIVER BIOPSY PERFORMED ABOVE. PATHOLOGY PENDING. NO IMMEDIATE COMPLICATIONS. 6 CORES WERE OBTAINED. Chest X-Ray 08/10/20 08:30 IMPRESSION: Findings concerning for right lower lobe pneumonia. Assessment & Plan - Diagnosis (1) COPD (chronic obstructive pulmonary disease) Is this a current diagnosis for this admission?: Yes (2) Elevated liver enzymes Is this a current diagnosis for this admission?: Yes (3) Lung nodule Is this a current diagnosis for this admission?: Yes (4) Lung cancer Is this a current diagnosis for this admission?: Yes Plan: Will change order from MRI krzysztof to CT with contrast. Kidney function is good. I will discuss again with and if she agrees, will go ahead and have port placed in preparation for chemo to start DON. - Time Time Spent with patient: 15-24 minutes
[2020-08-11 08:49] LABS: HEMATOCRIT 37.4 % (37.9-51.0); HEMOGLOBIN 12.6 g/dL (13.5-17.0); MEAN CORPUSCULAR HEMOGLOBIN 30.1 pg (27.0-33.4); MEAN CORPUSCULAR HGB CONC 33.7 g/dL (32.0-36.0); MEAN CORPUSCULAR VOLUME 89 fl (80-97); PLATELET COUNT 106 10^3/uL (150-450); RED BLOOD COUNT 4.18 10^6/uL (4.35-5.55); WHITE BLOOD COUNT 9.1 10^3/uL (4.0-10.5)
[2020-08-11 09:02] LABS: ANION GAP 9 (5-19); BLOOD UREA NITROGEN 37 mg/dL (7-20); CALCIUM 10.1 mg/dL (8.4-10.2); CARBON DIOXIDE 20 mmol/L (22-30); CHLORIDE 112 mmol/L (98-107); GLUCOSE 99 mg/dL (75-110); POTASSIUM 4.6 mmol/L (3.6-5.0)
[2020-08-11 09:14] LABS: ABSOLUTE LYMPHOCYTES# (MANUAL) 0.5 10^3/uL (0.5-4.7); ABSOLUTE MONOCYTES # (MANUAL) 0.6 10^3/uL (0.1-1.4); ANISOCYTOSIS SLIGHT; BAND NEUTROPHILS % (MANUAL) 1 % (3-5); BASOPHILS % (MANUAL) 0 % (0-2); EOSINOPHILS % (MANUAL) 0 % (0-6); LYMPHOCYTES % (MANUAL) 6 % (13-45); MONOCYTES % (MANUAL) 7 % (3-13); PLATELET COMMENT DECREASED; SEGMENTED NEUTROPHILS % (MAN) 86 % (42-78); TOTAL CELLS COUNTED 100
[2020-08-11 09:16] LABS: PLATELET LARGE PRESENT
--- NOTE | 2020-08-11 10:25 | RADIOLOGY REPORT (SQ) ---
EXAM DESCRIPTION: CT HEAD WITH IMAGES COMPLETED DATE/TIME: 08/11/2020 9:54 am REASON FOR STUDY: mental status changes in patient with cancer R55 SYNCOPE AND COLLAPSE E07.9 DISO RDER OF THYROID, UNSPECIFIED COMPARISON: 08/05/2020 TECHNIQUE: Axial images acquired through the brain with intravenous contrast. Images reviewed with b one, brain and subdural windows. Images stored on PACS. All CT scanners at this facility use dose modulation, iterative reconstruction, and/or weight based d osing when appropriate to reduce radiation dose to as low as reasonably achievable (ALARA). [facility]: Dose Right [facility]: CareDose [facility]: Dose Right [facility]: Teradose 4D [facility]: Synchrony CONTRAST TYPE AND DOSE: contrast/concentration: Isovue 350.00 mmol/ml; Total Contrast Delivered: 50. 0 ml; Total Saline Delivered: 43.0 ml RENAL FUNCTION: BUN 31; CREATININE 0.96 RADIATION DOSE: CT Rad equipment meets quality standard of care and radiation dose reduction techniq ues were employed. CTDIvol: 48.9 mGy. DLP: 935 mGy-cm.. LIMITATIONS: Patient motion artifact. FINDINGS: VENTRICLES: Normal size and configuration. CEREBRUM: No masses. No hemorrhage. No midline shift. Areas of low density in the white matter mos t likely due to chronic micro-vascular ischemic change. Very subtle hypoattenuation within the left frontal lobe with mild loss of parker- white matter differentiation No enhancing lesions. CEREBELLUM: No masses. No hemorrhage. No alteration of density. No evidence for acute infarction. N o enhancing lesions. EXTRAAXIAL SPACES: Age-related involutional change. No fluid collections. No masses. ORBITS AND GLOBE: No intra- or extraconal masses. Normal contour of globe without masses. CALVARIUM: No fracture. There is an ill-defined lucency of the right temporal fossa skullbase (axial images 23 through 25) ; no discrete soft tissue mass or periosteal reaction is demonstrated. PARANASAL SINUSES: No fluid or mucosal thickening. SOFT TISSUES: No mass or hematoma. OTHER: No other significant finding. IMPRESSION: Subtle findings may represent a subacute left frontal lobe ischemic injury ; consider MR imaging for improved characterization. Ill-defined lucency of the right temporal fossa skull base i s of uncertain etiology or significance. No discrete mass. Background of mild microvascular and inv olutional changes. EVIDENCE OF ACUTE STROKE: NO. TECHNICAL DOCUMENTATION: JOB ID: [id number] Quality ID # [id number]: Final reports with documentation of one or more dose reduction techniques (e.g., Au tomated exposure control, adjustment of the mA and/or kV according to patient size, use of iterative reconstruction technique) 2010 [employer]- All Rights Reserved Reading location - IP/workstation name: [email or web address]
[2020-08-11] MEDS: METOPROLOL TARTRATE 50 MG TABLET PO SCH (11:18)
[2020-08-11] MEDS: METHIMAZOLE 5 MG TABLET PO SCH (11:18)
[2020-08-11] MEDS: ASPIRIN 325 MG TABLET PO SCH (11:19)
[2020-08-11] MEDS: CHOLECALCIFEROL (D3) 1,000 UNIT (25 MCG) TABLET PO SCH (11:19)
[2020-08-11] MEDS: FLUTICASONE/UMECLIDIN/VILANTER 100-62.5-25 MCG/DOSE IH SCH (11:21)
[2020-08-11] MEDS: ENOXAPARIN SODIUM INJ 40 MG/0.4 ML DISP.SYRIN SUBCUT SCH (11:22)
[2020-08-11] MEDS ORDERED: CEFEPIME 2 GM/D5W RTU 2 GM/50 ML RTUPB IV SCH (13:00)
--- NOTE | 2020-08-11 13:28 | PDOC PROGRESS REPORT ---
Subjective Subjective:: Per Previous Physician: "History of Present Illness: LAUREN GOVEA is a 70 year old male who has history of hypertension, aortic aneurysm status post endovascular repair, COPD not on home oxygen. Patient is a former smoker. He does not drink. Patient was scheduled for CT scan outpatient earlier today. Before he underwent the scan, he apparently fell in the bathroom was some head trauma. Patient mentioned that his legs gave out on him. He denied any dizziness. Is not sure if he lost consciousness. Denies any seizure activity or incontinence. He mentioned that he has not been eating as usual for the past 5 days but was able to keep fluids in. Work-up in the emergency room was positive for lung mass with numerous liver metastases. Interval history: 08/06/2020: Patient was seen and examined. He is stable on nasal cannula oxygen. Apparently he desaturated rapidly with minimal exertion. Slightly tachycardic. 08/07/2020: Patient was seen and examined. He is currently stable respiratory chase. CT angiogram negative for PE." 08/08/2020 Patient having liver biopsy reportedly. This may be easier to access tissue than a lung biopsy and probably safer as well. Patient is confused today but he is mostly oriented. He is unable to tell me the exact hospital he is in but otherwise knows who he is and the date. Hepatitis panel is pending. He has no new complaints today. 08/09/2020 Patient seems to be more clear headed today is now almost fully oriented. His biopsy results were pending during my encounter today. I did speak with Dr. Jurado later in the afternoon and she stated the patient has confirmed lung cancer and she plans to discuss this with the patient and his tomorrow to determine aggressive treatment with chemotherapy versus home with hospice. Patient cannot go to a rehab facility while also receiving chemotherapy. If he is too weak to go home with home health, Dr. Jurado believes he may be too weak to receive chemotherapy anyway. If that is the case, it may be best to send him to rehab for a few weeks in order to get him strong enough for chemotherapy. I will defer to her discussion with the family and the patient tomorrow. Likely can be discharged home with home health versus SNF tomorrow. 08/10/2020 Pt more alert and mentating better however he seems bit more congested today, white blood cells are trending upwards with a left shift. I obtained a PA/ lateral chest x-ray which showed possible right lower lobe pneumonia. I will start him on ceftriaxone/azithromycin given the aforementioned trends towards developing infection. Patient denies any other complaints that might localize an alternate source of infection. He will likely continue to have postobstructive pneumonia until his lung cancer is definitively treated. I spoke with Dr. Jurado and she is reportedly helping the patient and his family figure out a treatment course. Possible that the patient to get a dose of chemotherapy here and then be discharged to a rehab facility where he can get strong enough to have future doses of chemotherapy. Patient and his family are still deciding this. 08/11/2020 Patient still has some notable pulmonary congestion on exam. Antibiotics varghese nue for suspected pneumonia related to his lung cancer. White blood cell count is lower today. Potassium is normalized. I noted that recent CTPA did not show PE. Patient is persistently tachycardic in the 130s despite adding moderate dose beta-mynor. We will change ceftriaxone to cefepime for broader coverage. If he does not improve, we may need to add vancomycin for MRSA coverage. We will get a twelve-lead EKG. Recent echocardiogram did not show any systolic or diastolic dysfunction. Stopped IV fluids and added IV Lasix as patient may be getting volume overloaded. Reason For Visit: NEAR SYNCOPE Physical Exam Vital Signs: Temp Pulse Resp BP Pulse Ox 97.1 F 130 H 20 102/72 93 08/11/20 07:37 08/11/20 07:37 08/11/20 07:37 08/11/20 07:37 08/11/20 07:37 Intake & Output 08/10/20 08/11/20 08/12/20 06:59 06:59 06:59 Intake Total 1931 760 Output Total 1320 Balance 611 760 Weight 94 kg 94 kg Exam: General appearance: PRESENT: no acute distress, well-developed, well-nourished, chronically ill-appearing, still sounds congested on exam Head exam: PRESENT: atraumatic, normocephalic Eye exam: PRESENT: conjunctiva pink. ABSENT: scleral icterus Mouth exam: PRESENT: moist Respiratory exam: PRESENT: Scant crackles right lower lung field ABSENT: rales, wheezes Cardiovascular exam: PRESENT: RRR. ABSENT: diastolic murmur, rubs, systolic murmur GI/Abdominal exam: PRESENT: normal bowel sounds, soft. ABSENT: distended, guarding, mass, organolmegaly, rebound, tenderness Neurological exam: PRESENT: alert, awake, oriented to person, oriented to place, general date and disposition Psychiatric exam: PRESENT: appropriate affect, normal mood Skin exam: PRESENT: dry, intact, warm Results Laboratory Results: 08/11/20 07:59 08/11/20 07:59 08/11/20 08/11/20 07:59 07:59 WBC 9.1 RBC 4.18 L Hgb 12.6 L Hct 37.4 L MCV 89 MCH 30.1 MCHC 33.7 RDW 14.0 Plt Count 106 L Seg Neutrophils % Not Reportable Sodium 141.1 Potassium 4.6 Chloride 112 H Carbon Dioxide 20 L Anion Gap 9 BUN 37 H Creatinine 1.00 Est GFR ( Amer) > 60 Glucose 99 Calcium 10.1 08/05/20 08/05/20 08:50 08:50 Creatine Kinase 114 Troponin I < 0.012 Impressions: Abdomen Ultrasound 08/05/20 09:51 IMPRESSION: Nodular appearing liver, multinodular cirrhosis versus liver metastatic disease Multiple stones in the gallbladder without sonographic signs of acute cholecystitis Echogenic atrophic right kidney Abdomen/Pelvis CT 08/05/20 11:50 IMPRESSION: 1. Suspicious 2.3 cm solid nodule in the right medial lower lobe. This may be amenable to percutaneous sampling. Additionally, there are 2 indeterminate subcentimeter solid nodules in the left lower lobe. Background moderate pulmonary emphysema. 2. Innumerable hepatic metastases. 3. Infrarenal aortic bi-iliac stent graft. 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 4. Multiple bilateral indeterminate renal cortical lesions. Moderately suspici ous 9 mm lesion at the inferior pole right kidney. Renal protocol MRI or CT may provide additional information, however many of these are too small to adequately characterize and follow-up may be required. 5. Prostatomegaly. Chest CT 08/05/20 11:51 IMPRESSION: 1. Suspicious 2.3 cm solid nodule in the right medial lower lobe. This may be amenable to percutaneous sampling. Additionally, there are 2 indeterminate subcentimeter solid nodules in the left lower lobe. Background moderate pulmonary emphysema. 2. Innumerable hepatic metastases. 3. Infrarenal aortic bi-iliac stent graft. 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 4. Multiple bilateral indeterminate renal cortical lesions. Moderately suspicious 9 mm lesion at the inferior pole right kidney. Renal protocol MRI or CT may provide additional information, however many of these are too small to adequately characterize and follow-up may be required. 5. Prostatomegaly. Chest/Abdomen CTA 08/06/20 00:00 IMPRESSION: NO PULMONARY EMBOLI. Guidance Needle Placement CT 08/08/20 00:00 IMPRESSION: CT GUIDED TARGETED LIVER BIOPSY PERFORMED ABOVE. PATHOLOGY PENDING. NO IMMEDIATE COMPLICATIONS. 6 CORES WERE OBTAINED. Liver Biopsy CT 08/08/20 00:00 IMPRESSION: CT GUIDED TARGETED LIVER BIOPSY PERFORMED ABOVE. PATHOLOGY PENDING. NO IMMEDIATE COMPLICATIONS. 6 CORES WERE OBTAINED. Chest X-Ray 08/10/20 08:30 IMPRESSION: Findings concerning for right lower lobe pneumonia. Head CT 08/11/20 07:15 IMPRESSION: Subtle findings may represent a subacute left frontal lobe ischemic injury ; consider MR imaging for improved characterization. Ill-defined lucency of the right temporal fossa skull base is of uncertain etiology or significance. No discrete mass. Background of mild microvascular and involutional changes. EVIDENCE OF ACUTE STROKE: NO. Assessment and Plan - Diagnosis (1) COPD (chronic obstructive pulmonary disease) Is this a current diagnosis for this admission?: Yes (2) Dehydration Is this a current diagnosis for this admission?: Yes (3) Elevated liver enzymes Is this a current diagnosis for this admission?: Yes (4) HTN (hypertension) Is this a current diagnosis for this admission?: Yes (5) Lung nodule Is this a current diagnosis for this admission?: Yes (6) Metastasis to liver of unknown origin Is this a current diagnosis for this admission?: Yes (7) Near syncope Is this a current diagnosis for this admission?: Yes (8) Tachycardia Is this a current diagnosis for this admission?: Yes (9) Obstructive pneumonia Is this a current diagnosis for this admission?: Yes - Plan Summary Summary: Per Previous Physician: "History of Present Illness: LAUREN GOVEA is a 70 year old male who has history of hypertension, aortic aneurysm status post endovascular repair, COPD not on home oxygen. Patient is a former smoker. He does not drink. Patient was scheduled for CT scan outpatient earlier today. Before he underwent the scan, he apparently fell in the bathroom was some head trauma. Patient mentioned that his legs gave out on him. He denied any dizziness. Is not sure if he lost consciousness. Denies any seizure activity or incontinence. He mentioned that he has not been eating as usual for the past 5 days but was able to keep fluids in. Work-up in the emergency room was positive for lung mass with numerous liver metastases." Obstructive pneumonia Rising WBC, congested cough, known lung cancer Changed ceftriaxone to cefepime, continued azithromycin Respiratory culture Near syncope Per Previous Physician: "Ordered echocardiogram. Telemetry monitoring. Negative orthostatic vital signs. My impression is this is most likely just deconditioning and generalized muscle weakness from poor nutrition." Resolved Dehydrationresolved Continue IV fluids. Improved/resolved Elevated liver enzymes Per Previous Physician: "Most likely related to liver metastasis." Lung Adenocarcinoma Initial Chest CT hghly concerning for malignancy. Status post biopsy. Dr. Ruiz of oncology is following. Pathology confirms neuroendocrine lung cancer Dr. Jurado planning chemotherapy dose while inpatient Metastasis to liver of Lung Adenocarcinoma As above Tachycardia Sinus tachycardia. IV fluids stopped. Monitor on telemetry. Echocardiogram showed normal systolic and diastolic function, good EF. Normal TSH. EKG Metoprolol IV Lasix COPD (chronic obstructive pulmonary disease) Not in exacerbation. Continue home medications. Consulted his emergency services director. HTN (hypertension) Resume home medications. Monitor blood pressure. Acute hypoxemic respiratory failure. CTA of the chest negative for PE. - Time Time Spent with patient: 25-34 minutes Medications reviewed and adjusted accordingly: Yes Anticipated Discharge Disposition: Home with Home Health Anticipated Discharge Timeframe: within 72 hours - Inpatient Certification Based on my medical assessment, after consideration of the patient's c omorbidities, presenting symptoms, or acuity I expect that the services needed warrant INPATIENT care.: Yes I certify that my determination is in accordance with my understanding of Medicare's requirements for reasonable and necessary INPATIENT services [42 CFR 412.3e].: Yes Medical Necessity: Significant Comorbidiites Make Outpatient Treatment Too Risky, Need Close Monitoring Due to Risk of Patient Decompensation, Need for IV Antibiotics, Risk of Complication if Not Cared For in Hospital, Risk of Diagnosis Which Will Require Inpatient Eval/Care/Monitoring
[2020-08-11] MEDS: CEFEPIME HCL 2 GM in DEXTROSE 5%-WATER 50 ML IV SCH ×2 (14:21→22:16)
--- NOTE | 2020-08-11 17:52 | EKG REPORT ---
SEVERITY:- ABNORMAL ECG - SINUS TACHYCARDIA LEFT ANTERIOR FASCICULAR BLOCK LOW VOLTAGE THROUGHOUT : Confirmed by: Joseph Anderson MD 11-Aug-2020 17:51:11
[2020-08-11] MEDS: AZITHROMYCIN 500 MG in DEXTROSE 5%-WATER 250 ML IV SCH (22:13)
[2020-08-11] MEDS: METOPROLOL TARTRATE 100 MG TABLET PO SCH (22:14)
[2020-08-12 06:57] LABS: HEMATOCRIT 35.9 % (37.9-51.0); MEAN CORPUSCULAR HEMOGLOBIN 30.1 pg (27.0-33.4); MEAN CORPUSCULAR HGB CONC 33.5 g/dL (32.0-36.0); MEAN CORPUSCULAR VOLUME 90 fl (80-97); RED CELL DISTRIBUTION WIDTH 13.7 % (11.5-14.0); WHITE BLOOD COUNT 8.5 10^3/uL (4.0-10.5)
[2020-08-12 07:01] LABS: PLATELET COUNT 95 10^3/uL (150-450)
[2020-08-12 07:15] LABS: ANION GAP 8 (5-19); BLOOD UREA NITROGEN 45 mg/dL (7-20); CALCIUM 9.9 mg/dL (8.4-10.2); CARBON DIOXIDE 21 mmol/L (22-30); CHLORIDE 112 mmol/L (98-107); GLUCOSE 107 mg/dL (75-110); POTASSIUM 4.8 mmol/L (3.6-5.0)
[2020-08-12 07:21] LABS: ABSOLUTE LYMPHOCYTES# (MANUAL) 1.5 10^3/uL (0.5-4.7); ABSOLUTE MONOCYTES # (MANUAL) 0.7 10^3/uL (0.1-1.4); BAND NEUTROPHILS % (MANUAL) 5 % (3-5); BASOPHILS % (MANUAL) 0 % (0-2); EOSINOPHILS % (MANUAL) 0 % (0-6); LYMPHOCYTES % (MANUAL) 18 % (13-45); MONOCYTES % (MANUAL) 8 % (3-13); SEGMENTED NEUTROPHILS % (MAN) 69 % (42-78); TOTAL CELLS COUNTED 100
[2020-08-12 07:23] LABS: PLATELET COMMENT DECREASED; RBC MORPHOLOGY COMMENT NORMO-CYTIC/CHROMIC
--- NOTE | 2020-08-12 08:38 | PDOC PROGRESS REPORT ---
Subjective Date:: 08/12/20 Subjective:: Patient states that he is feeling good today. He denies any dyspnea. No pain. He is sitting up eating applesause in his bed. Nurses report that yesterday he was not doing well. He had increased respiratory symptoms and hypoxia with tachycardia. Now, however, this seems to have resolved. His antibiotics were changed yesterday. Reason For Visit: NEAR SYNCOPE,STAGE 4 LUNG CANCER Physical Exam Vital Signs: Temp Pulse Resp BP Pulse Ox 97.8 F 110 H 20 124/67 93 08/11/20 23:50 08/12/20 02:00 08/11/20 23:50 08/11/20 23:50 08/11/20 23:50 Intake & Output 08/11/20 08/12/20 08/13/20 06:59 06:59 06:59 Intake Total 1760 370 Balance 1760 370 Weight 94 kg 94 kg General appearance: PRESENT: no acute distress Head exam: PRESENT: normocephalic Eye exam: PRESENT: EOMI Respiratory exam: PRESENT: unlabored Cardiovascular exam: PRESENT: tachycardia Extremities exam: ABSENT: pedal edema Neurological exam: PRESENT: alert, awake, oriented to person, oriented to place. ABSENT: oriented to time Skin exam: PRESENT: other - escar over right knee. Results Laboratory Results: 08/12/20 05:46 08/12/20 05:46 08/11/20 08/11/20 08/11/20 07:59 07:59 14:26 WBC 9.1 RBC 4.18 L Hgb 12.6 L Hct 37.4 L MCV 89 MCH 30.1 MCHC 33.7 RDW 14.0 Plt Count 106 L Seg Neutrophils % Not Reportable Sodium 141.1 Potassium 4.6 Chloride 112 H Carbon Dioxide 20 L Anion Gap 9 BUN 37 H Creatinine 1.00 Est GFR ( Amer) > 60 Glucose 99 Lactic Acid 2.0 Calcium 10.1 Free T4 08/11/20 08/12/20 08/12/20 14:26 05:46 05:46 WBC 8.5 RBC 4.00 L Hgb 12.0 L Hct 35.9 L MCV 90 MCH 30.1 MCHC 33.5 RDW 13.7 Plt Count 95 L Seg Neutrophils % Not Reportable Sodium 141.2 Potassium 4.8 Chloride 112 H Carbon Dioxide 21 L Anion Gap 8 BUN 45 H Creatinine 1.14 Est GFR ( Amer) > 60 Glucose 107 Lactic Acid Calcium 9.9 Free T4 0.88 08/05/20 08/05/20 08/11/20 08:50 08:50 14:26 Creatine Kinase 114 CK-MB (CK-2) Troponin I < 0.012 0.048 08/11/20 08/11/20 19:55 19:55 Creatine Kinase 84 CK-MB (CK-2) 0.78 Troponin I Impressions: Abdomen Ultrasound 08/05/20 09:51 IMPRESSION: Nodular appearing liver, multinodular cirrhosis versus liver metastatic disease Multiple stones in the gallbladder without sonographic signs of acute cholecystitis Echogenic atrophic right kidney Abdomen/Pelvis CT 08/05/20 11:50 IMPRESSION: 1. Suspicious 2.3 cm solid nodule in the right medial lower lobe. This may be amenable to percutaneous sampling. Additionally, there are 2 indeterminate subcentimeter solid nodules in the left lower lobe. Background moderate pulmonary emphysema. 2. Innumerable hepatic metastases. 3. Infrarenal aortic bi-iliac stent graft. There is a right common femoral aneu rysm with intraluminal stent graft. 4. Multiple bilateral indeterminate renal cortical lesions. Moderately suspicious 9 mm lesion at the inferior pole right kidney. Renal protocol MRI or CT may provide additional information, however many of these are too small to adequately characterize and follow-up may be required. 5. Prostatomegaly. Chest CT 08/05/20 11:51 IMPRESSION: 1. Suspicious 2.3 cm solid nodule in the right medial lower lobe. This may be amenable to percutaneous sampling. Additionally, there are 2 indeterminate subcentimeter solid nodules in the left lower lobe. Background moderate pulmonary emphysema. 2. Innumerable hepatic metastases. 3. Infrarenal aortic bi-iliac stent graft. 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 4. Multiple bilateral indeterminate renal cortical lesions. Moderately suspicious 9 mm lesion at the inferior pole right kidney. Renal protocol MRI or CT may provide additional information, however many of these are too small to adequately characterize and follow-up may be required. 5. Prostatomegaly. Chest/Abdomen CTA 08/06/20 00:00 IMPRESSION: NO PULMONARY EMBOLI. Guidance Needle Placement CT 08/08/20 00:00 IMPRESSION: CT GUIDED TARGETED LIVER BIOPSY PERFORMED ABOVE. PATHOLOGY PENDING. NO IMMEDIATE COMPLICATIONS. 6 CORES WERE OBTAINED. Liver Biopsy CT 08/08/20 00:00 IMPRESSION: CT GUIDED TARGETED LIVER BIOPSY PERFORMED ABOVE. PATHOLOGY PENDING. NO IMMEDIATE COMPLICATIONS. 6 CORES WERE OBTAINED. Chest X-Ray 08/10/20 08:30 IMPRESSION: Findings concerning for right lower lobe pneumonia. Head CT 08/11/20 07:15 IMPRESSION: Subtle findings may represent a subacute left frontal lobe ischemic injury ; consider MR imaging for improved characterization. Ill-defined lucency of the right temporal fossa skull base is of uncertain etiology or significance. No discrete mass. Background of mild microvascular and involutional changes. EVIDENCE OF ACUTE STROKE: NO. Assessment & Plan - Diagnosis (1) COPD (chronic obstructive pulmonary disease) Is this a current diagnosis for this admission?: Yes (2) Elevated liver enzymes Is this a current diagnosis for this admission?: Yes (3) Lung nodule Is this a current diagnosis for this admission?: Yes (4) Lung cancer Is this a current diagnosis for this admission?: Yes Plan: I had another long conversation with the patient's . The CT with contrast of the brain showed no evidence of brain mets, but some chronic white matter changes. , Sharonda would like to go ahead with aggressive treatment. Will place port and plan to start carboplatin/etoposide DON. I would like to have neulasta support as well. After first cycle completes (about 1 week from now) he should be stable to transfer to rehab for strengthening until cycle #2 in a month from now. Patient was also discussed with Drs. Rose and Jonathan. All are in agreement with plan. - Time Time Spent with patient: 15-24 minutes
--- NOTE | 2020-08-12 09:04 | PDOC CONSULTATION ---
Consultation Consult Date: 08/12/20 Provider Consulted: MARKO MINA Consult reason:: For Chemo-Port placement History of Present Illness Admission Date/PCP: 08/05/20 15:16 Denia MOTA MD History of Present Illness: LAUREN GOVEA is a 70 year old male with known history of lung CA with mets to the liver. 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 We were requested by oncology to place a Chemo-Port. We will schedule it for Saturday or Saturday and start chemo on Saturday. Past Medical History Cardiac Medical History: Reports: Hypertension, Other - Abdominal aortic and femoral artery aneurysms Pulmonary Medical History: Reports: Asthma, Chronic Obstructive Pulmonary Disease (COPD) Renal/ Medical History: Reports: Other - Chronic kidney disease Psychiatric Medical History: Denies: Depression Past Surgical History Past Surgical History: Reports: Other - Endovascular repair of aortic and right femoral artery aneurysms Social History Lives with: Spouse/Significant other Smoking Status: Former Smoker - quit in 2016 Cigarettes Packs Per Day: 1 Number of Years Smokin Last Time Smoked: 2014 Frequency of Alcohol Use: None Hx Recreational Drug Use: No Family History Family History: CVA, Hypertension, Other - father of "brain hemorrhage" Parental Family History Reviewed: Yes Children Family History Reviewed: No Sibling(s) Family History Reviewed.: No Medication/Allergy Home Medications: Albuterol Sulfate [Proair Hfa Inhalation Aerosol 8.5 gm Mdi] 2 puff IH Q6HP PRN 08/05/20 Amlodipine Besylate [Norvasc 5 mg Tablet] 5 mg PO DAILY 08/05/20 Aspirin [Aspirin 325 mg Tablet] 325 mg PO DAILY 08/05/20 Cholecalciferol (Vitamin D3) [Vitamin D3 1000 Unit Tablet] 5,000 unit PO DAILY 08/05/20 Fluticasone/Umeclidin/Vilanter [Trelegy 100-62.5-25 Mcg Ellipta 14 Dose/Dpi] 1 each IH DAILY 08/05/20 Methimazole [Tapazole 5 Mg Tablet] 2.5 mg PO DAILY 08/05/20 Potassium Chloride [Klor-Con 10 Meq Tablet ER] 10 meq PO QPM 08/05/20 Potassium Chloride [Klor-Con 10 Meq Tablet ER] 20 meq PO DAILY 08/05/20 Tiotropium [place] [Spiriva Handihaler 5 Cap/Kit (18 Mcg/Cap)] 1 cap IH DAILY 08/05/20 Allergies/Adverse Reactions: Penicillins Allergy (Verified 08/05/20 09:45) Sulfa (Sulfonamide Antibiotics) Allergy (Verified 08/05/20 09:45) Physical Exam Vital Signs: Temp Pulse Resp BP Pulse Ox 98.0 F 117 H 23 H 98/76 L 95 08/12/20 08:54 08/12/20 08:24 08/12/20 08:24 08/12/20 08:24 08/12/20 08:24 Intake & Output 08/11/20 08/12/20 08/13/20 06:59 06:59 06:59 Intake Total 1760 370 Balance 1760 370 Weight 94 kg 94 kg General appearance: PRESENT: cooperative Head exam: PRESENT: atraumatic Mouth exam: PRESENT: moist Neck exam: PRESENT: full ROM Pulses: PRESENT: normal radial pulses Vascular exam: PRESENT: normal capillary refill GI/Abdominal exam: PRESENT: soft Rectal exam: PRESENT: deferred Neurological exam: PRESENT: awake, oriented to person, oriented to place, oriented to time, oriented to situation Psychiatric exam: PRESENT: appropriate affect Skin exam: PRESENT: normal color, warm Results Laboratory Results: 08/12/20 05:46 08/12/20 05:46 08/11/20 08/11/20 08/11/20 07:59 07:59 14:26 WBC 9.1 RBC 4.18 L Hgb 12.6 L Hct 37.4 L MCV 89 MCH 30.1 MCHC 33.7 RDW 14.0 Plt Count 106 L Seg Neutrophils % Not Reportable Sodium 141.1 Potassium 4.6 Chloride 112 H Carbon Dioxide 20 L Anion Gap 9 BUN 37 H Creatinine 1.00 Est GFR ( Amer) > 60 Glucose 99 Lactic Acid 2.0 Calcium 10.1 Free T4 08/11/20 08/12/20 08/12/20 14:26 05:46 05:46 WBC 8.5 RBC 4.00 L Hgb 12.0 L Hct 35.9 L MCV 90 MCH 30.1 MCHC 33.5 RDW 13.7 Plt Count 95 L Seg Neutrophils % Not Reportable Sodium 141.2 Potassium 4.8 Chloride 112 H Carbon Dioxide 21 L Anion Gap 8 BUN 45 H Creatinine 1.14 Est GFR ( Amer) > 60 Glucose 107 Lactic Acid Calcium 9.9 Free T4 0.88 08/05/20 08/05/20 08/11/20 08:50 08:50 14:26 Creatine Kinase 114 CK-MB (CK-2) Troponin I < 0.012 0.048 08/11/20 08/11/20 19:55 19:55 Creatine Kinase 84 CK-MB (CK-2) 0.78 Troponin I Impressions: Abdomen Ultrasound 08/05/20 09:51 IMPRESSION: Nodular appearing liver, multinodular cirrhosis versus liver metastatic disease Multiple stones in the gallbladder without sonographic signs of acute cholecystitis Echogenic atrophic right kidney Abdomen/Pelvis CT 08/05/20 11:50 IMPRESSION: 1. Suspicious 2.3 cm solid nodule in the right medial lower lobe. This may be amenable to percutaneous sampling. Additionally, there are 2 indeterminate subcentimeter solid nodules in the left lower lobe. Background moderate pulmonary emphysema. 2. Innumerable hepatic metastases. 3. Infrarenal aortic bi-iliac stent graft. There is a right common femoral an eurysm with intraluminal stent graft. 4. Multiple bilateral indeterminate renal cortical lesions. Moderately suspicious 9 mm lesion at the inferior pole right kidney. Renal protocol MRI or CT may provide additional information, however many of these are too small to adequately characterize and follow-up may be required. 5. Prostatomegaly. Chest CT 08/05/20 11:51 IMPRESSION: 1. Suspicious 2.3 cm solid nodule in the right medial lower lobe. This may be amenable to percutaneous sampling. Additionally, there are 2 indeterminate subcentimeter solid nodules in the left lower lobe. Background moderate pulmonary emphysema. 2. Innumerable hepatic metastases. 3. Infrarenal aortic bi-iliac stent graft. 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 4. Multiple bilateral indeterminate renal cortical lesions. Moderately suspicious 9 mm lesion at the inferior pole right kidney. Renal protocol MRI or CT may provide additional information, however many of these are too small to adequately characterize and follow-up may be required. 5. Prostatomegaly. Chest/Abdomen CTA 08/06/20 00:00 IMPRESSION: NO PULMONARY EMBOLI. Guidance Needle Placement CT 08/08/20 00:00 IMPRESSION: CT GUIDED TARGETED LIVER BIOPSY PERFORMED ABOVE. PATHOLOGY PENDING. NO IMMEDIATE COMPLICATIONS. 6 CORES WERE OBTAINED. Liver Biopsy CT 08/08/20 00:00 IMPRESSION: CT GUIDED TARGETED LIVER BIOPSY PERFORMED ABOVE. PATHOLOGY PENDING. NO IMMEDIATE COMPLICATIONS. 6 CORES WERE OBTAINED. Chest X-Ray 08/10/20 08:30 IMPRESSION: Findings concerning for right lower lobe pneumonia. Head CT 08/11/20 07:15 IMPRESSION: Subtle findings may represent a subacute left frontal lobe ischemic injury ; consider MR imaging for improved characterization. Ill-defined lucency of the right temporal fossa skull base is of uncertain etiology or significance. No discrete mass. Background of mild microvascular and involutional changes. EVIDENCE OF ACUTE STROKE: NO. Assessment & Plan - Diagnosis (1) COPD (chronic obstructive pulmonary disease) Is this a current diagnosis for this admission?: Yes (2) Lung cancer Is this a current diagnosis for this admission?: Yes (3) Metastasis to liver of unknown origin Is this a current diagnosis for this admission?: Yes (4) Near syncope Is this a current diagnosis for this admission?: Yes - Time Time Spent: 30 to 50 Minutes - Inpatient Certification Medical Necessity: Need For Continuous Telemetry Monitoring, Need for Neurological Checks, Need for Surgery - Plan Summary Plan Summary: 70-year-old male with the primary lung CA with mets to the liver. Will schedule Chemo-Port placement on Saturday and start chemo on Saturday. Patient is agreeable with this plan. Keep n.p.o. Saturday midnight. Chemo-Port placement Saturday.
[2020-08-12] MEDS ORDERED: FUROSEMIDE INJ/PF 40 MG/4 ML SDV IV SCH (10:00)
[2020-08-12] MEDS: METHIMAZOLE 5 MG TABLET PO SCH (10:10)
[2020-08-12] MEDS: FLUTICASONE/UMECLIDIN/VILANTER 100-62.5-25 MCG/DOSE IH SCH (10:17)
[2020-08-12] MEDS: METOPROLOL TARTRATE 100 MG TABLET PO SCH ×2 (10:17→21:21)
[2020-08-12] MEDS: ENOXAPARIN SODIUM INJ 40 MG/0.4 ML DISP.SYRIN SUBCUT SCH (10:18)
[2020-08-12] MEDS: ASPIRIN 325 MG TABLET PO SCH (10:18)
[2020-08-12] MEDS: CEFEPIME HCL 2 GM in DEXTROSE 5%-WATER 50 ML IV SCH ×2 (10:19→21:21)
[2020-08-12] MEDS: CHOLECALCIFEROL (D3) 1,000 UNIT (25 MCG) TABLET PO SCH (10:25)
--- NOTE | 2020-08-12 14:19 | PDOC PROGRESS REPORT ---
Subjective Subjective:: Per Previous Physician: "History of Present Illness: LAUREN GOVEA is a 70 year old male who has history of hypertension, aortic aneurysm status post endovascular repair, COPD not on home oxygen. Patient is a former smoker. He does not drink. Patient was scheduled for CT scan outpatient earlier today. Before he underwent the scan, he apparently fell in the bathroom was some head trauma. Patient mentioned that his legs gave out on him. He denied any dizziness. Is not sure if he lost consciousness. Denies any seizure activity or incontinence. He mentioned that he has not been eating as usual for the past 5 days but was able to keep fluids in. Work-up in the emergency room was positive for lung mass with numerous liver metastases. Interval history: 08/06/2020: Patient was seen and examined. He is stable on nasal cannula oxygen. Apparently he desaturated rapidly with minimal exertion. Slightly tachycardic. 08/07/2020: Patient was seen and examined. He is currently stable respiratory chase. CT angiogram negative for PE." 08/08/2020 Patient having liver biopsy reportedly. This may be easier to access tissue than a lung biopsy and probably safer as well. Patient is confused today but he is mostly oriented. He is unable to tell me the exact hospital he is in but otherwise knows who he is and the date. Hepatitis panel is pending. He has no new complaints today. 08/09/2020 Patient seems to be more clear headed today is now almost fully oriented. His biopsy results were pending during my encounter today. I did speak with Dr. Jurado later in the afternoon and she stated the patient has confirmed lung cancer and she plans to discuss this with the patient and his tomorrow to determine aggressive treatment with chemotherapy versus home with hospice. Patient cannot go to a rehab facility while also receiving chemotherapy. If he is too weak to go home with home health, Dr. Jurado believes he may be too weak to receive chemotherapy anyway. If that is the case, it may be best to send him to rehab for a few weeks in order to get him strong enough for chemotherapy. I will defer to her discussion with the family and the patient tomorrow. Likely can be discharged home with home health versus SNF tomorrow. 08/10/2020 Pt more alert and mentating better however he seems bit more congested today, white blood cells are trending upwards with a left shift. I obtained a PA/ lateral chest x-ray which showed possible right lower lobe pneumonia. I will start him on ceftriaxone/azithromycin given the aforementioned trends towards developing infection. Patient denies any other complaints that might localize an alternate source of infection. He will likely continue to have postobstructive pneumonia until his lung cancer is definitively treated. I spoke with Dr. Jurado and she is reportedly helping the patient and his family figure out a treatment course. Possible that the patient to get a dose of chemotherapy here and then be discharged to a rehab facility where he can get strong enough to have future doses of chemotherapy. Patient and his family are still deciding this. 08/11/2020 Patient still has some notable pulmonary congestion on exam. Antibiotics varghese nue for suspected pneumonia related to his lung cancer. White blood cell count is lower today. Potassium is normalized. I noted that recent CTPA did not show PE. Patient is persistently tachycardic in the 130s despite adding moderate dose beta-mynor. We will change ceftriaxone to cefepime for broader coverage. If he does not improve, we may need to add vancomycin for MRSA coverage. We will get a twelve-lead EKG. Recent echocardiogram did not show any systolic or diastolic dysfunction. Stopped IV fluids and added IV Lasix as patient may be getting volume overloaded. 08/12/2020 Patient seems to be wheezing quite a bit today. He already takes Trelegy chronically and has not missed any doses. I believe he is having a mild COPD exacerbation and I have started him on a burst course of prednisone for the next 5 days. I discussed the plan going forward Dr. Jurado today and she states the patient will start chemotherapy on Saturday after a port is placed on Saturday. He will get 3 doses of chemotherapy and then hopefully go to a rehab facility on Saturday. We will need case management to arrange this. Reason For Visit: NEAR SYNCOPE,STAGE 4 LUNG CANCER Physical Exam Vital Signs: Temp Pulse Resp BP Pulse Ox 97.4 F 91 24 H 112/66 96 08/12/20 12:22 08/12/20 12:22 08/12/20 12:22 08/12/20 12:22 08/12/20 12:22 Intake & Output 08/11/20 08/12/20 08/13/20 06:59 06:59 06:59 Intake Total 1760 370 Balance 1760 370 Weight 94 kg 94 kg 94 kg Exam: General appearance: PRESENT: no acute distress, well-developed, well-nourished, chronically ill-appearing, wheezing today Head exam: PRESENT: atraumatic, normocephalic Eye exam: PRESENT: conjunctiva pink. ABSENT: scleral icterus Mouth exam: PRESENT: moist Respiratory exam: PRESENT: Mild wheezing diffusely ABSENT: rales Cardiovascular exam: PRESENT: RRR. ABSENT: diastolic murmur, rubs, systolic murmur GI/Abdominal exam: PRESENT: normal bowel sounds, soft. ABSENT: distended, guarding, mass, organolmegaly, rebound, tenderness Neurological exam: PRESENT: alert, awake, oriented to person, oriented to place, general date and disposition Psychiatric exam: PRESENT: appropriate affect, normal mood Skin exam: PRESENT: dry, intact, warm Results Laboratory Results: 08/12/20 05:46 08/12/20 05:46 08/11/20 08/11/20 08/12/20 14:26 14:26 05:46 WBC 8.5 RBC 4.00 L Hgb 12.0 L Hct 35.9 L MCV 90 MCH 30.1 MCHC 33.5 RDW 13.7 Plt Count 95 L Seg Neutrophils % Not Reportable Sodium Potassium Chloride Carbon Dioxide Anion Gap BUN Creatinine Est GFR ( Amer) Glucose Lactic Acid 2.0 Calcium Free T4 0.88 08/12/20 05:46 WBC RBC Hgb Hct MCV MCH MCHC RDW Plt Count Seg Neutrophils % Sodium 141.2 Potassium 4.8 Chloride 112 H Carbon Dioxide 21 L Anion Gap 8 BUN 45 H Creatinine 1.14 Est GFR ( Amer) > 60 Glucose 107 Lactic Acid Calcium 9.9 Free T4 08/05/20 08/05/20 08/11/20 08:50 08:50 14:26 Creatine Kinase 114 CK-MB (CK-2) Troponin I < 0.012 0.048 08/11/20 08/11/20 19:55 19:55 Creatine Kinase 84 CK-MB (CK-2) 0.78 Troponin I Impressions: Abdomen Ultrasound 08/05/20 09:51 IMPRESSION: Nodular appearing liver, multinodular cirrhosis versus liver metastatic disease Multiple stones in the gallbladder without sonographic signs of acute cholecystitis Echogenic atrophic right kidney Abdomen/Pelvis CT 08/05/20 11:50 IMPRESSION: 1. Suspicious 2.3 cm solid nodule in the right medial lower lobe. This may be amenable to percutaneous sampling. Additionally, there are 2 indeterminate subcentimeter solid nodules in the left lower lobe. Background moderate pulmonary emphysema. 2. Innumerable hepatic metastases. 3. Infrarenal aortic bi-iliac stent graft. 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 4. Multiple bilateral indeterminate renal cortical lesions. Moderately suspicious 9 mm lesion at the inferior pole right kidney. Renal protocol MRI or CT may provide additional information, however many of these are too small to adequately characterize and follow-up may be required. 5. Prostatomegaly. Chest CT 08/05/20 11:51 IMPRESSION: 1. Suspicious 2.3 cm solid nodule in the right medial lower lobe. This may be amenable to percutaneous sampling. Additionally, there are 2 indeterminate subcentimeter solid nodules in the left lower lobe. Background moderate pulmonary emphysema. 2. Innumerable hepatic metastases. 3. Infrarenal aortic bi-iliac stent graft. 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 4. Multiple bilateral indeterminate renal cortical lesions. Moderately suspicious 9 mm lesion at the inferior pole right kidney. Renal protocol MRI or CT may provide additional information, however many of these are too small to adequately characterize and follow-up may be required. 5. Prostatomegaly. Chest/Abdomen CTA 08/06/20 00:00 IMPRESSION: NO PULMONARY EMBOLI. Guidance Needle Placement CT 08/08/20 00:00 IMPRESSION: CT GUIDED TARGETED LIVER BIOPSY PERFORMED ABOVE. PATHOLOGY PENDING. NO IMMEDIATE COMPLICATIONS. 6 CORES WERE OBTAINED. Liver Biopsy CT 08/08/20 00:00 IMPRESSION: CT GUIDED TARGETED LIVER BIOPSY PERFORMED ABOVE. PATHOLOGY PENDING. NO IMMEDIATE COMPLICATIONS. 6 CORES WERE OBTAINED. Chest X-Ray 08/10/20 08:30 IMPRESSION: Findings concerning for right lower lobe pneumonia. Head CT 08/11/20 07:15 IMPRESSION: Subtle findings may represent a subacute left frontal lobe ischemic injury ; consider MR imaging for improved characterization. Ill-defined lucency of the right temporal fossa skull base is of uncertain etiology or significance. No discrete mass. Background of mild microvascular and involutional changes. EVIDENCE OF ACUTE STROKE: NO. Assessment and Plan - Diagnosis (1) COPD (chronic obstructive pulmonary disease) Is this a current diagnosis for this admission?: Yes (2) Dehydration Is this a current diagnosis for this admission?: Yes (3) Elevated liver enzymes Is this a current diagnosis for this admission?: Yes (4) HTN (hypertension) Is this a current diagnosis for this admission?: Yes (5) Lung nodule Is this a current diagnosis for this admission?: Yes (6) Metastasis to liver of unknown origin Is this a current diagnosis for this admission?: Yes (7) Near syncope Is this a current diagnosis for this admission?: Yes (8) Tachycardia Is this a current diagnosis for this admission?: Yes (9) Obstructive pneumonia Is this a current diagnosis for this admission?: Yes (10) COPD exacerbation Is this a current diagnosis for this admission?: Yes - Plan Summary Summary: Per Previous Physician: "History of Present Illness: LAUREN GOVEA is a 70 year old male who has history of hypertension, aortic aneurysm status post endovascular repair, COPD not on home oxygen. Patient is a former smoker. He does not drink. Patient was scheduled for CT scan outpatient earlier today. Before he underwent the scan, he apparently fell in the bathroom was some head trauma. Patient mentioned that his legs gave out on him. He denied any dizziness. Is not sure if he lost consciousness. Denies any seizure activity or incontinence. He mentioned that he has not been eating as usual for the past 5 days but was able to keep fluids in. Work-up in the emergency room was positive for lung mass with numerous liver metastases." COPD (chronic obstructive pulmonary disease) -with exacerbation -prednisone 40mg X5d Obstructive pneumonia Rising WBC, congested cough, known lung cancer Changed ceftriaxone to cefepime, continued azithromycin Respiratory culture Near syncope Per Previous Physician: "Ordered echocardiogram. Telemetry monitoring. Negative orthostatic vital signs. My impression is this is most likely just deconditioning and generalized muscle weakness from poor nutrition." Resolved Dehydrationresolved Continue IV fluids. Improved/resolved Elevated liver enzymes Per Previous Physician: "Most likely related to liver metastasis." Lung Adenocarcinoma Initial Chest CT hghly concerning for malignancy. Status post biopsy. Dr. Ruiz of oncology is following. Pathology confirms neuroendocrine lung cancer Dr. Jurado planning chemotherapy dose while inpatient Metastasis to liver of Lung Adenocarcinoma As above Tachycardia Sinus tachycardia. IV fluids stopped. Monitor on telemetry. Echocardiogram showed normal systolic and diastolic function, good EF. Normal TSH. EKG Metoprolol IV Lasix COPD (chronic obstructive pulmonary disease) Continue home medications. 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 HTN (hypertension) Resume home medications. Monitor blood pressure. Acute hypoxemic respiratory failure. CTA of the chest negative for PE. - Time Time Spent with patient: 25-34 minutes Medications reviewed and adjusted accordingly: Yes Anticipated Discharge Disposition: [facility] Facility Anticipated Discharge Timeframe: saturday - Inpatient Certification Based on my medical assessment, after consideration of the patient's comorbidities, presenting symptoms, or acuity I expect that the services needed warrant INPATIENT care.: Yes I certify that my determination is in accordance with my understanding of Medic are's requirements for reasonable and necessary INPATIENT services [42 CFR 412.3e].: Yes Medical Necessity: Significant Comorbidiites Make Outpatient Treatment Too Risky, Need Close Monitoring Due to Risk of Patient Decompensation, Risk of Complication if Not Cared For in Hospital, Risk of Diagnosis Which Will Require Inpatient Eval/Care/Monitoring
[2020-08-12] MEDS: PREDNISONE 20 MG TABLET PO SCH (15:29)
[2020-08-12] MEDS: AZITHROMYCIN 500 MG in DEXTROSE 5%-WATER 250 ML IV SCH (21:20)
[2020-08-13] MEDS: CHOLECALCIFEROL (D3) 1,000 UNIT (25 MCG) TABLET PO SCH (09:37)
[2020-08-13] MEDS: PREDNISONE 20 MG TABLET PO SCH (09:38)
[2020-08-13] MEDS: METOPROLOL TARTRATE 100 MG TABLET PO SCH ×2 (09:38→21:12)
[2020-08-13] MEDS: ASPIRIN 325 MG TABLET PO SCH (09:39)
[2020-08-13] MEDS: METHIMAZOLE 5 MG TABLET PO SCH (09:39)
[2020-08-13] MEDS: FLUTICASONE/UMECLIDIN/VILANTER 100-62.5-25 MCG/DOSE IH SCH (09:40)
[2020-08-13] MEDS: ENOXAPARIN SODIUM INJ 40 MG/0.4 ML DISP.SYRIN SUBCUT SCH (09:41)
[2020-08-13] MEDS: CEFEPIME HCL 2 GM in DEXTROSE 5%-WATER 50 ML IV SCH ×2 (09:42→21:12)
--- NOTE | 2020-08-13 11:41 | PDOC PROGRESS REPORT ---
Subjective Subjective:: Per Previous Physician: "History of Present Illness: LAUREN GOVEA is a 70 year old male who has history of hypertension, aortic aneurysm status post endovascular repair, COPD not on home oxygen. Patient is a former smoker. He does not drink. Patient was scheduled for CT scan outpatient earlier today. Before he underwent the scan, he apparently fell in the bathroom was some head trauma. Patient mentioned that his legs gave out on him. He denied any dizziness. Is not sure if he lost consciousness. Denies any seizure activity or incontinence. He mentioned that he has not been eating as usual for the past 5 days but was able to keep fluids in. Work-up in the emergency room was positive for lung mass with numerous liver metastases. Interval history: 08/06/2020: Patient was seen and examined. He is stable on nasal cannula oxygen. Apparently he desaturated rapidly with minimal exertion. Slightly tachycardic. 08/07/2020: Patient was seen and examined. He is currently stable respiratory chase. CT angiogram negative for PE." 08/08/2020 Patient having liver biopsy reportedly. This may be easier to access tissue than a lung biopsy and probably safer as well. Patient is confused today but he is mostly oriented. He is unable to tell me the exact hospital he is in but otherwise knows who he is and the date. Hepatitis panel is pending. He has no new complaints today. 08/09/2020 Patient seems to be more clear headed today is now almost fully oriented. His biopsy results were pending during my encounter today. I did speak with Dr. Jurado later in the afternoon and she stated the patient has confirmed lung cancer and she plans to discuss this with the patient and his tomorrow to determine aggressive treatment with chemotherapy versus home with hospice. Patient cannot go to a rehab facility while also receiving chemotherapy. If he is too weak to go home with home health, Dr. Jurado believes he may be too weak to receive chemotherapy anyway. If that is the case, it may be best to send him to rehab for a few weeks in order to get him strong enough for chemotherapy. I will defer to her discussion with the family and the patient tomorrow. Likely can be discharged home with home health versus SNF tomorrow. 08/10/2020 Pt more alert and mentating better however he seems bit more congested today, white blood cells are trending upwards with a left shift. I obtained a PA/ lateral chest x-ray which showed possible right lower lobe pneumonia. I will start him on ceftriaxone/azithromycin given the aforementioned trends towards developing infection. Patient denies any other complaints that might localize an alternate source of infection. He will likely continue to have postobstructive pneumonia until his lung cancer is definitively treated. I spoke with Dr. Jurado and she is reportedly helping the patient and his family figure out a treatment course. Possible that the patient to get a dose of chemotherapy here and then be discharged to a rehab facility where he can get strong enough to have future doses of chemotherapy. Patient and his family are still deciding this. 08/11/2020 Patient still has some notable pulmonary congestion on exam. Antibiotics varghese nue for suspected pneumonia related to his lung cancer. White blood cell count is lower today. Potassium is normalized. I noted that recent CTPA did not show PE. Patient is persistently tachycardic in the 130s despite adding moderate dose beta-mynor. We will change ceftriaxone to cefepime for broader coverage. If he does not improve, we may need to add vancomycin for MRSA coverage. We will get a twelve-lead EKG. Recent echocardiogram did not show any systolic or diastolic dysfunction. Stopped IV fluids and added IV Lasix as patient may be getting volume overloaded. 08/12/2020 Patient seems to be wheezing quite a bit today. He already takes Trelegy chronically and has not missed any doses. I believe he is having a mild COPD exacerbation and I have started him on a burst course of prednisone for the next 5 days. I discussed the plan going forward Dr. Jurado today and she states the patient will start chemotherapy on Saturday after a port is placed on Saturday. He will get 3 doses of chemotherapy and then hopefully go to a rehab facility on Saturday. We will need case management to arrange this. 08/13/2020 Patient is still wheezing today I will start him on scheduled duo nebs. Steroids and antibiotics seem to have helped a little bit. Plan is to get a Mediport on Saturday and start chemotherapy on Saturday. Covid and other respiratory virus tests are negative. Patient has no new complaints today other than some continued upper respiratory congestion. Reason For Visit: D 3 ETOP/ Physical Exam Vital Signs: Temp Pulse Resp BP Pulse Ox 97.6 F 117 H 26 H 94/65 L 93 08/13/20 08:16 08/13/20 07:57 08/13/20 07:57 08/13/20 07:57 08/13/20 07:57 Intake & Output 08/12/20 08/13/20 08/14/20 06:59 06:59 06:59 Intake Total 370 740 Balance 370 740 Weight 94 kg 94.3 kg Exam: General appearance: PRESENT: no acute distress, well-developed, well-nourished, chronically ill-appearing, states he is still a bit congested Head exam: PRESENT: atraumatic, normocephalic Eye exam: PRESENT: conjunctiva pink. ABSENT: scleral icterus Mouth exam: PRESENT: moist Respiratory exam: PRESENT: Mild wheezing diffusely and mild congestion ABSENT: rales Cardiovascular exam: PRESENT: RRR. ABSENT: diastolic murmur, rubs, systolic murmur GI/Abdominal exam: PRESENT: normal bowel sounds, soft. ABSENT: distended, guarding, mass, organolmegaly, rebound, tenderness Neurological exam: PRESENT: alert, awake, oriented to person, oriented to place, general date and disposition Psychiatric exam: PRESENT: appropriate affect, normal mood Skin exam: PRESENT: dry, intact, warm Results Laboratory Results: 08/12/20 05:46 08/12/20 05:46 08/05/20 08/05/20 08/11/20 08:50 08:50 14:26 Creatine Kinase 114 CK-MB (CK-2) Troponin I < 0.012 0.048 08/11/20 08/11/20 19:55 19:55 Creatine Kinase 84 CK-MB (CK-2) 0.78 Troponin I Impressions: Abdomen Ultrasound 08/05/20 09:51 IMPRESSION: Nodular appearing liver, multinodular cirrhosis versus liver metastatic disease Multiple stones in the gallbladder without sonographic signs of acute cholec ystitis Echogenic atrophic right kidney Abdomen/Pelvis CT 08/05/20 11:50 IMPRESSION: 1. Suspicious 2.3 cm solid nodule in the right medial lower lobe. This may be amenable to percutaneous sampling. Additionally, there are 2 indeterminate subcentimeter solid nodules in the left lower lobe. Background moderate pulmonary emphysema. 2. Innumerable hepatic metastases. 3. Infrarenal aortic bi-iliac stent graft. 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 4. Multiple bilateral indeterminate renal cortical lesions. Moderately suspicious 9 mm lesion at the inferior pole right kidney. Renal protocol MRI or CT may provide additional information, however many of these are too small to adequately characterize and follow-up may be required. 5. Prostatomegaly. Chest CT 08/05/20 11:51 IMPRESSION: 1. Suspicious 2.3 cm solid nodule in the right medial lower lobe. This may be amenable to percutaneous sampling. Additionally, there are 2 indeterminate subcentimeter solid nodules in the left lower lobe. Background moderate pulmonary emphysema. 2. Innumerable hepatic metastases. 3. Infrarenal aortic bi-iliac stent graft. 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 4. Multiple bilateral indeterminate renal cortical lesions. Moderately suspicious 9 mm lesion at the inferior pole right kidney. Renal protocol MRI or CT may provide additional information, however many of these are too small to adequately characterize and follow-up may be required. 5. Prostatomegaly. Chest/Abdomen CTA 08/06/20 00:00 IMPRESSION: NO PULMONARY EMBOLI. Guidance Needle Placement CT 08/08/20 00:00 IMPRESSION: CT GUIDED TARGETED LIVER BIOPSY PERFORMED ABOVE. PATHOLOGY PENDING. NO IMMEDIATE COMPLICATIONS. 6 CORES WERE OBTAINED. Liver Biopsy CT 08/08/20 00:00 IMPRESSION: CT GUIDED TARGETED LIVER BIOPSY PERFORMED ABOVE. PATHOLOGY PENDING. NO IMMEDIATE COMPLICATIONS. 6 CORES WERE OBTAINED. Chest X-Ray 08/10/20 08:30 IMPRESSION: Findings concerning for right lower lobe pneumonia. Head CT 08/11/20 07:15 IMPRESSION: Subtle findings may represent a subacute left frontal lobe ischemic injury ; consider MR imaging for improved characterization. Ill-defined lucency of the right temporal fossa skull base is of uncertain etiology or significance. No discrete mass. Background of mild microvascular and involutional changes. EVIDENCE OF ACUTE STROKE: NO. Assessment and Plan - Diagnosis (1) COPD (chronic obstructive pulmonary disease) Is this a current diagnosis for this admission?: Yes (2) Dehydration Is this a current diagnosis for this admission?: Yes (3) Elevated liver enzymes Is this a current diagnosis for this admission?: Yes (4) HTN (hypertension) Is this a current diagnosis for this admission?: Yes (5) Lung nodule Is this a current diagnosis for this admission?: Yes (6) Metastasis to liver of unknown origin Is this a current diagnosis for this admission?: Yes (7) Near syncope Is this a current diagnosis for this admission?: Yes (8) Tachycardia Is this a current diagnosis for this admission?: Yes (9) Obstructive pneumonia Is this a current diagnosis for this admission?: Yes (10) COPD exacerbation Is this a current diagnosis for this admission?: Yes - Plan Summary Summary: Per Previous Physician: "History of Present Illness: LAUREN GOVEA is a 70 year old male who has history of hypertension, aortic aneurysm status post endovascular repair, COPD not on home oxygen. Patient is a former smoker. He does not drink. Patient was scheduled for CT scan outpatient earlier today. Before he underwent the scan, he apparently fell in the bathroom was some head trauma. Patient mentioned that his legs gave out on him. He denied any dizziness. Is not sure if he lost consciousness. Denies any seizure activity or incontinence. He mentioned that he has not been eating as usual for the past 5 days but was able to keep fluids in. Work-up in the emergency room was positive for lung mass with numerous liver metastases." COPD (chronic obstructive pulmonary disease) -with exacerbation -prednisone 40mg X5d -Q4h duonebs -cont trelegy Obstructive pneumonia Rising WBC, congested cough, known lung cancer Changed ceftriaxone to cefepime, continued azithromycin Respiratory culture Near syncope Per Previous Physician: "Ordered echocardiogram. Telemetry monitoring. Negative orthostatic vital sign s. My impression is this is most likely just deconditioning and generalized muscle weakness from poor nutrition." Resolved Dehydrationresolved Continue IV fluids. Improved/resolved Elevated liver enzymes Per Previous Physician: "Most likely related to liver metastasis." Lung Adenocarcinoma Initial Chest CT hghly concerning for malignancy. Status post biopsy. Dr. Ruiz of oncology is following. Pathology confirms neuroendocrine lung cancer Dr. Jurado planning chemotherapy dose while inpatient mediport placement ordered for 08/15: gen surgery consulted Metastasis to liver of Lung Adenocarcinoma As above Tachycardia Sinus tachycardia. IV fluids stopped. Monitor on telemetry. Echocardiogram showed normal systolic and diastolic function, good EF. Normal TSH. EKG Metoprolol IV Lasix COPD (chronic obstructive pulmonary disease) Continue home medications. 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 HTN (hypertension) Resume home medications. Monitor blood pressure. Acute hypoxemic respiratory failure. CTA of the chest negative for PE. - Time Time Spent with patient: 25-34 minutes Anticipated Discharge Disposition: Long-Term Facility Anticipated Discharge Timeframe: saturday - Inpatient Certification Based on my medical assessment, after consideration of the patient's comorbidities, presenting symptoms, or acuity I expect that the services needed warrant INPATIENT care.: Yes I certify that my determination is in accordance with my understanding of Medicare's requirements for reasonable and necessary INPATIENT services [42 CFR 412.3e].: Yes Medical Necessity: Significant Comorbidiites Make Outpatient Treatment Too Risky, Need Close Monitoring Due to Risk of Patient Decompensation, Need for Nebulizer Therapy and Monitoring of Response, Need for IV Antibiotics, Need for Surgery, Risk of Complication if Not Cared For in Hospital, Risk of Diagnosis Which Will Require Inpatient Eval/Care/Monitoring
[2020-08-13] MEDS: IPRATROPIUM/ALBUTEROL 0.5-2.5 MG/3 ML AMPUL NEB SCH ×3 (13:06→19:55)
[2020-08-13] MEDS: AZITHROMYCIN 500 MG in DEXTROSE 5%-WATER 250 ML IV SCH (21:12)
[2020-08-14 05:39] LABS: HEMATOCRIT 34.8 % (37.9-51.0); HEMOGLOBIN 11.9 g/dL (13.5-17.0); MEAN CORPUSCULAR HEMOGLOBIN 30.6 pg (27.0-33.4); MEAN CORPUSCULAR HGB CONC 34.1 g/dL (32.0-36.0); MEAN CORPUSCULAR VOLUME 90 fl (80-97); RED BLOOD COUNT 3.88 10^6/uL (4.35-5.55); RED CELL DISTRIBUTION WIDTH 14.1 % (11.5-14.0); WHITE BLOOD COUNT 9.4 10^3/uL (4.0-10.5)
[2020-08-14 06:01] LABS: ANION GAP 7 (5-19); BLOOD UREA NITROGEN 63 mg/dL (7-20); CALCIUM 10.3 mg/dL (8.4-10.2); CARBON DIOXIDE 23 mmol/L (22-30); CHLORIDE 111 mmol/L (98-107); GLUCOSE 100 mg/dL (75-110); POTASSIUM 4.4 mmol/L (3.6-5.0)
[2020-08-14 06:11] LABS: PLATELET COUNT 88 10^3/uL (150-450)
[2020-08-14 06:13] LABS: ABSOLUTE MONOCYTES # (MANUAL) 0.5 10^3/uL (0.1-1.4); BAND NEUTROPHILS % (MANUAL) 8 % (3-5); BASOPHILS % (MANUAL) 0 % (0-2); EOSINOPHILS % (MANUAL) 0 % (0-6); LYMPHOCYTES % (MANUAL) 11 % (13-45); MONOCYTES % (MANUAL) 5 % (3-13); SEGMENTED NEUTROPHILS % (MAN) 76 % (42-78); TOTAL CELLS COUNTED 100
[2020-08-14 06:14] LABS: ANISOCYTOSIS 1+; PLATELET COMMENT DECREASED; POLYCHROMASIA 1+
[2020-08-14] MEDS: IPRATROPIUM/ALBUTEROL 0.5-2.5 MG/3 ML AMPUL NEB SCH ×4 (08:39→19:43)
[2020-08-14] MEDS: CHOLECALCIFEROL (D3) 1,000 UNIT (25 MCG) TABLET PO SCH (10:48)
[2020-08-14] MEDS: METOPROLOL TARTRATE 100 MG TABLET PO SCH ×2 (10:48→22:03)
[2020-08-14] MEDS: PREDNISONE 20 MG TABLET PO SCH (10:48)
[2020-08-14] MEDS: ASPIRIN 325 MG TABLET PO SCH (10:49)
[2020-08-14] MEDS: METHIMAZOLE 5 MG TABLET PO SCH (10:49)
[2020-08-14] MEDS: FLUTICASONE/UMECLIDIN/VILANTER 100-62.5-25 MCG/DOSE IH SCH (10:50)
[2020-08-14] MEDS: ENOXAPARIN SODIUM INJ 40 MG/0.4 ML DISP.SYRIN SUBCUT SCH (10:50)
--- NOTE | 2020-08-14 11:50 | PDOC PROGRESS REPORT ---
Subjective Subjective:: Per Previous Physician: "History of Present Illness: LAUREN GOVEA is a 70 year old male who has history of hypertension, aortic aneurysm status post endovascular repair, COPD not on home oxygen. Patient is a former smoker. He does not drink. Patient was scheduled for CT scan outpatient earlier today. Before he underwent the scan, he apparently fell in the bathroom was some head trauma. Patient mentioned that his legs gave out on him. He denied any dizziness. Is not sure if he lost consciousness. Denies any seizure activity or incontinence. He mentioned that he has not been eating as usual for the past 5 days but was able to keep fluids in. Work-up in the emergency room was positive for lung mass with numerous liver metastases. Interval history: 08/06/2020: Patient was seen and examined. He is stable on nasal cannula oxygen. Apparently he desaturated rapidly with minimal exertion. Slightly tachycardic. 08/07/2020: Patient was seen and examined. He is currently stable respiratory chase. CT angiogram negative for PE." 08/08/2020 Patient having liver biopsy reportedly. This may be easier to access tissue than a lung biopsy and probably safer as well. Patient is confused today but he is mostly oriented. He is unable to tell me the exact hospital he is in but otherwise knows who he is and the date. Hepatitis panel is pending. He has no new complaints today. 08/09/2020 Patient seems to be more clear headed today is now almost fully oriented. His biopsy results were pending during my encounter today. I did speak with Dr. Jurado later in the afternoon and she stated the patient has confirmed lung cancer and she plans to discuss this with the patient and his tomorrow to determine aggressive treatment with chemotherapy versus home with hospice. Patient cannot go to a rehab facility while also receiving chemotherapy. If he is too weak to go home with home health, Dr. Jurado believes he may be too weak to receive chemotherapy anyway. If that is the case, it may be best to send him to rehab for a few weeks in order to get him strong enough for chemotherapy. I will defer to her discussion with the family and the patient tomorrow. Likely can be discharged home with home health versus SNF tomorrow. 08/10/2020 Pt more alert and mentating better however he seems bit more congested today, white blood cells are trending upwards with a left shift. I obtained a PA/ lateral chest x-ray which showed possible right lower lobe pneumonia. I will start him on ceftriaxone/azithromycin given the aforementioned trends towards developing infection. Patient denies any other complaints that might localize an alternate source of infection. He will likely continue to have postobstructive pneumonia until his lung cancer is definitively treated. I spoke with Dr. Jurado and she is reportedly helping the patient and his family figure out a treatment course. Possible that the patient to get a dose of chemotherapy here and then be discharged to a rehab facility where he can get strong enough to have future doses of chemotherapy. Patient and his family are still deciding this. 08/11/2020 Patient still has some notable pulmonary congestion on exam. Antibiotics varghese nue for suspected pneumonia related to his lung cancer. White blood cell count is lower today. Potassium is normalized. I noted that recent CTPA did not show PE. Patient is persistently tachycardic in the 130s despite adding moderate dose beta-mynor. We will change ceftriaxone to cefepime for broader coverage. If he does not improve, we may need to add vancomycin for MRSA coverage. We will get a twelve-lead EKG. Recent echocardiogram did not show any systolic or diastolic dysfunction. Stopped IV fluids and added IV Lasix as patient may be getting volume overloaded. 08/12/2020 Patient seems to be wheezing quite a bit today. He already takes Trelegy chronically and has not missed any doses. I believe he is having a mild COPD exacerbation and I have started him on a burst course of prednisone for the next 5 days. I discussed the plan going forward Dr. Jurado today and she states the patient will start chemotherapy on Saturday after a port is placed on Saturday. He will get 3 doses of chemotherapy and then hopefully go to a rehab facility on Saturday. We will need case management to arrange this. 08/13/2020 Patient is still wheezing today I will start him on scheduled duo nebs. Steroids and antibiotics seem to have helped a little bit. Plan is to get a Mediport on Saturday and start chemotherapy on Saturday. Covid and other respiratory virus tests are negative. Patient has no new complaints today other than some continued upper respiratory congestion. 08/14/2020 Patient is notably more confused today. I believe this has a lot to do with significant CO2 retention given that we are currently pushing his supplemental oxygen beyond what is required to maintain adequate saturation in a COPD patient. I discussed with nursing that our goal is 89 to 92% otherwise wean r isk worsening the patient's confusion due to CO2 retention. Duo nebs are ordered, he continues on prednisone, and Trelegy is continued. Plan is for Mediport tomorrow. Reason For Visit: D 3 ETOP/ Physical Exam Vital Signs: Temp Pulse Resp BP Pulse Ox 97.2 F 116 H 25 H 112/74 96 08/14/20 08:04 08/14/20 08:04 08/14/20 08:04 08/14/20 08:04 08/14/20 08:04 Intake & Output 08/13/20 08/14/20 08/15/20 06:59 06:59 06:59 Intake Total 740 606 Output Total 795 Balance 740 -189 Weight 94.3 kg 90.1 kg Exam: General appearance: PRESENT: no acute distress, well-developed, well-nourished, chronically ill-appearing, quite confused today and speaking mostly nonsense Head exam: PRESENT: atraumatic, normocephalic Eye exam: PRESENT: conjunctiva pink. ABSENT: scleral icterus Mouth exam: PRESENT: moist Respiratory exam: PRESENT: Improved wheezing diffusely and mild congestion ABSENT: rales Cardiovascular exam: PRESENT: RRR. ABSENT: diastolic murmur, rubs, systolic murmur GI/Abdominal exam: PRESENT: normal bowel sounds, soft. ABSENT: distended, guarding, mass, organolmegaly, rebound, tenderness Neurological exam: PRESENT: alert, awake, oriented to person, but not oriented to anything else, notably more confused today Psychiatric exam: PRESENT: appropriate affect, normal mood Skin exam: PRESENT: dry, intact, warm Results Laboratory Results: 08/14/20 05:14 08/14/20 05:14 08/14/20 08/14/20 05:14 05:14 WBC 9.4 RBC 3.88 L Hgb 11.9 L Hct 34.8 L MCV 90 MCH 30.6 MCHC 34.1 RDW 14.1 H Plt Count 88 L Seg Neutrophils % Not Reportable Sodium 140.6 Potassium 4.4 Chloride 111 H Carbon Dioxide 23 Anion Gap 7 BUN 63 H Creatinine 1.34 H Est GFR ( Amer) > 60 Glucose 100 Calcium 10.3 H 08/05/20 08/05/20 08/11/20 08:50 08:50 14:26 Creatine Kinase 114 CK-MB (CK-2) Troponin I < 0.012 0.048 08/11/20 08/11/20 19:55 19:55 Creatine Kinase 84 CK-MB (CK-2) 0.78 Troponin I Impressions: Abdomen Ultrasound 08/05/20 09:51 IMPRESSION: Nodular appearing liver, multinodular cirrhosis versus liver metastatic disease Multiple stones in the gallbladder without sonographic signs of acute cholecystitis Echogenic atrophic right kidney Abdomen/Pelvis CT 08/05/20 11:50 IMPRESSION: 1. Suspicious 2.3 cm solid nodule in the right medial lower lobe. This may be amenable to percutaneous sampling. Additionally, there are 2 indeterminate subcentimeter solid nodules in the left lower lobe. Background moderate pulmonary emphysema. 2. Innumerable hepatic metastases. 3. Infrarenal aortic bi-iliac stent graft. 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 4. Multiple bilateral indeterminate renal cortical lesions. Moderately suspicious 9 mm lesion at the inferior pole right kidney. Renal protocol MRI or CT may provide additional information, however many of these are too small to adequately characterize and follow-up may be required. 5. Prostatomegaly. Chest CT 08/05/20 11:51 IMPRESSION: 1. Suspicious 2.3 cm solid nodule in the right medial lower lobe. This may be amenable to percutaneous sampling. Additionally, there are 2 indeterminate subcentimeter solid nodules in the left lower lobe. Background moderate pulmonary emphysema. 2. Innumerable hepatic metastases. 3. Infrarenal aortic bi-iliac stent graft. 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 4. Multiple bilateral indeterminate renal cortical lesions. Moderately suspicious 9 mm lesion at the inferior pole right kidney. Renal protocol MRI or CT may provide additional information, however many of these are too small to adequately characterize and follow-up may be required. 5. Prostatomegaly. Chest/Abdomen CTA 08/06/20 00:00 IMPRESSION: NO PULMONARY EMBOLI. Guidance Needle Placement CT 08/08/20 00:00 IMPRESSION: CT GUIDED TARGETED LIVER BIOPSY PERFORMED ABOVE. PATHOLOGY PENDING. NO IMMEDIATE COMPLICATIONS. 6 CORES WERE OBTAINED. Liver Biopsy CT 08/08/20 00:00 IMPRESSION: CT GUIDED TARGETED LIVER BIOPSY PERFORMED ABOVE. PATHOLOGY PENDING. NO IMMEDIATE COMPLICATIONS. 6 CORES WERE OBTAINED. Chest X-Ray 08/10/20 08:30 IMPRESSION: Findings concerning for right lower lobe pneumonia. Head CT 08/11/20 07:15 IMPRESSION: Subtle findings may represent a subacute left frontal lobe ischemic injury ; consider MR imaging for improved characterization. Ill-defined lucency of the right temporal fossa skull base is of uncertain etiology or significance. No discrete mass. Background of mild microvascular and involutional changes. EVIDENCE OF ACUTE STROKE: NO. Assessment and Plan - Diagnosis (1) COPD (chronic obstructive pulmonary disease) Is this a current diagnosis for this admission?: Yes (2) Dehydration Is this a current diagnosis for this admission?: Yes (3) Elevated liver enzymes Is this a current diagnosis for this admission?: Yes (4) HTN (hypertension) Is this a current diagnosis for this admission?: Yes (5) Lung nodule Is this a current diagnosis for this admission?: Yes (6) Metastasis to liver of unknown origin Is this a current diagnosis for this admission?: Yes (7) Near syncope Is this a current diagnosis for this admission?: Yes (8) Tachycardia Is this a current diagnosis for this admission?: Yes (9) Obstructive pneumonia Is this a current diagnosis for this admission?: Yes (10) COPD exacerbation Is this a current diagnosis for this admission?: Yes - Plan Summary Summary: Per Previous Physician: "History of Present Illness: LAUREN GOVEA is a 70 year old male who has history of hypertension, aortic aneurysm status post endovascular repair, COPD not on home oxygen. Patient is a former smoker. He does not drink. Patient was scheduled for CT scan outpatient earlier today. Before he underwent the scan, he apparently fell in the bathroom was some head trauma. Patient mentioned that his legs gave out on him. He denied any dizziness. Is not sure if he lost consciousness. Denies any seizure activity or incontinence. He mentioned that he has not been eating as usual for the past 5 days but was able to keep fluids in. Work-up in the emergency room was positive for lung mass with numerous liver metastases." COPD (chronic obstructive pulmonary disease) -with exacerbation -prednisone 40mg X5d -Q4h duonebs while awake -cont trelegy Supplemental O2 to maintain sat of 89-92% -bronchial hygiene -consider pumonary rehab referral at [place] -no smoking Obstructive pneumonia Rising WBC, congested cough, known lung cancer Changed ceftriaxone to cefepime, continued azithromycin Respiratory culture Near syncope Per Previous Physician: "Ordered echocardiogram. Telemetry monitoring. Negative orthostatic vital signs. My impression is this is most likely just deconditioning and generalized muscle weakness from poor nutrition." Resolved Dehydrationresolved Continue IV fluids. Improved/resolved Elevated liver enzymes Per Previous Physician: "Most likely related to liver metastasis." Lung Adenocarcinoma -Initial Chest CT hghly concerning for malignancy. Status post biopsy. -Dr. Ruiz of oncology is following. -Pathology confirms neuroendocrine lung cancer -Dr. Jurado planning chemotherapy dose X3 starting 08/16 while inpatient then DC to snf -mediport placement ordered for 08/15: gen surgery consulted Metastasis to liver of Lung Adenocarcinoma As above Suspected atrial flutter EKG was automatically read as sinus tachycardia but I do not see clear evidence of P waves Possible volume overload causing pulmonary congestion and tachycardia, IV fluids stopped. Monitor on telemetry. Echocardiogram showed normal systolic and diastolic function, good EF. Normal TSH. EKG Metoprolol IV Lasix Cardiology consulted COPD (chronic obstructive pulmonary disease) Continue home medications. 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 HTN (hypertension) Resume home medications. Monitor blood pressure. Acute hypoxemic respiratory failure. CTA of the chest negative for PE. - Time Time Spent with patient: 25-34 minutes Medications reviewed and adjusted accordingly: Yes Anticipated Discharge Disposition: [facility] Facility Anticipated Discharge Timeframe: saturday - Inpatient Certification Based on my medical assessment, after consideration of the patient's comor bidities, presenting symptoms, or acuity I expect that the services needed warrant INPATIENT care.: Yes I certify that my determination is in accordance with my understanding of Medicare's requirements for reasonable and necessary INPATIENT services [42 CFR 412.3e].: Yes Medical Necessity: Significant Comorbidiites Make Outpatient Treatment Too Risky, Need Close Monitoring Due to Risk of Patient Decompensation, Need for Nebulizer Therapy and Monitoring of Response, Need for IV Antibiotics, Need for Surgery, Risk of Complication if Not Cared For in Hospital, Risk of Diagnosis Which Will Require Inpatient Eval/Care/Monitoring
[2020-08-14] MEDS ORDERED: VERAPAMIL HCL INJ/PF 5 MG/2 ML SDV IV ONE (14:30)
[2020-08-14] MEDS: CEFEPIME HCL 2 GM in DEXTROSE 5%-WATER 50 ML IV SCH ×2 (18:28→22:03)
--- NOTE | 2020-08-14 20:53 | PDOC CONSULTATION ---
Consultation-Blank Consultation: Cardiology consultation by Dr. Nancy Zuleta. Patient seen at 11 AM on 08/14/2020. 60 minutes spent on this patient more than 50% of time spent in direct patient care. REASON FOR CONSULTATION: Suspected atrial flutter with the patient's current heart rhythm on the monitor. CONSULT REQUESTING PHYSICIAN: [facility] HISTORY OF PRESENT ILLNESS: Patient is a 70-year-old male with history of hypertension, peripheral vascular disease and history of abdominal aortic aneurysm s/p endovascular repair in the past, COPD, who continues to smoke came to the emergency room with weakness and fall and near syncope. Work-up showed that the patient has lung cancer with liver mets with abnormal liver enzymes. The patient is supposedly getting a port placed for chemotherapy. The patient's rhythm was suspected to be atrial flutter. Note that the unable to get any history from the patient since even though the patient is awake and does seem to understand what is going on he is nonverbal and does not answer any questions. Review of multiple EKG shows that the tracing sinus tachycardia not atrial flutter. The patient was given 2.5 mg of verapamil x2 intravenously and rhythm strip was noted still to be sinus tachycardia not atrial flutter. Note if the patient does have atrial flutter anticoagulation is contraindicated in the patient and hence the best treatment would be would have been to treat the patient with a AV taty blocking agents to slow the patient's heart rate even if it were to be in atrial flutter. At present there is no evidence of the patient is in atrial flutter and the rhythm including the twelve-lead [place] lead EKG shows that the rhythm is sinus tachycardia. Past Medical History Cardiac Medical History: Reports: Hypertension, Other - Abdominal aortic and femoral artery aneurysms Pulmonary Medical History: Reports: Asthma, Chronic Obstructive Pulmonary Disease (COPD) Past Surgical History Past Surgical History: Reports: Other - Endovascular repair of aortic and right femoral artery aneurysms Social History Smoking Status: Former Smoker - quit in 2017 Family History Family History: CVA, Hypertension, Other - father of "brain hemorrhage" Parental Family History Reviewed: Yes Children Family History Reviewed: NA Sibling(s) Family History Reviewed.: NA Medication/Allergy Home Medications: Albuterol Sulfate [Proair Hfa Inhalation Aerosol 8.5 gm Mdi] 2 puff IH Q6HP PRN 08/05/20 Amlodipine Besylate [Norvasc 5 mg Tablet] 5 mg PO DAILY 08/05/20 Aspirin [Aspirin 325 mg Tablet] 325 mg PO DAILY 08/05/20 Cholecalciferol (Vitamin D3) [Vitamin D3 1000 Unit Tablet] 5,000 unit PO DAILY 08/05/20 Fluticasone/Umeclidin/Vilanter [Trelegy 100-62.5-25 Mcg Ellipta 14 Dose/Dpi] 1 each IH DAILY 08/05/20 Methimazole [Tapazole 5 Mg Tablet] 2.5 mg PO DAILY 08/05/20 Potassium Chloride [Klor-Con 10 Meq Tablet ER] 10 meq PO QPM 08/05/20 Potassium Chloride [Klor-Con 10 Meq Tablet ER] 20 meq PO DAILY 08/05/20 Tiotropium Barker [Spiriva Handihaler 5 Cap/Kit (18 Mcg/Cap)] 1 cap IH DAILY 08/05/20 Allergies/Adverse Reactions: Penicillins Allergy (Verified 08/05/20 09:45) Sulfa (Sulfonamide Antibiotics) Allergy (Verified 08/05/20 09:45) RESUSCITATION STATUS: The patient is a full code. The patient's is a surrogate healthcare decision maker. Current Medications Generic Name Dose Route Start Last Admin Trade Name Freq PRN Reason Stop Dose Admin Albuterol 2 puff 08/05/20 17:25 Albuterol Sulfate Hfa (90 Mcg/Puff) 8 Gm Mdi (1 Mdi/Er Disp) IH 09/04/20 17:24 Q6HP PRN WHEEZING/SHORTNESS OF BREATHE Albuterol/Ipratropium 3 ml 08/13/20 12:00 08/14/20 19:43 Ipratropium/Albuterol 0.5-2.5 Mg/3 Ml Ampul NEB 09/12/20 11:59 3 ml [id number] NICOLE Administration Aspirin 325 mg 08/06/20 10:00 08/14/20 10:49 Aspirin 325 Mg Tablet PO 09/05/20 09:59 325 mg DAILY NICOLE Administration Bisacodyl 5 mg 08/10/20 14:16 08/10/20 18:14 Bisacodyl 5 Mg Tabec PO 09/09/20 14:15 5 mg DAILYP PRN Administration CONSTIPATION Bisacodyl 10 mg 08/10/20 14:17 08/11/20 00:11 Bisacodyl 10 Mg Supp.Rect NM 09/09/20 14:16 10 mg DAILYP PRN Administration IF PO NOT SUCCESSFUL Cholecalciferol 5,000 unit 08/06/20 10:00 08/14/20 10:48 Cholecalciferol (D3) 1,000 Unit (25 Mcg) Tablet PO 09/05/20 09:59 5,000 unit DAILY NICOLE Administration Diltiazem HCl 120 mg 08/14/20 22:00 Diltiazem Hcl 120 Mg Cap.Sr.24h PO 09/13/20 21:59 QHS NICOLE Enoxaparin Sodium 40 mg 08/06/20 10:00 08/14/20 10:50 Enoxaparin Sodium Inj 40 Mg/0.4 Ml Disp.Syrin SUBCUT 09/05/20 09:59 40 mg DAILY NICOLE Administration Fluticasone/Vilanterol 1 inh 08/06/20 10:00 08/14/20 10:50 Fluticasone/Umeclidin/Vilanter 100-62.5-25 Mcg/Dose IH 09/05/20 09:59 1 inh DAILY NICOLE Administration Azithromycin 500 mg/ Dextrose 250 mls @ 250 mls/hr 08/10/20 22:00 08/13/20 22:12 IV 08/17/20 21:59 Infused QHS NICOLE Infusion Cefepime HCl 2 gm/ Dextrose 50 mls @ 100 mls/hr 08/11/20 14:00 08/14/20 18:28 IV 08/18/20 13:59 100 mls/hr Q12 NICOLE Administration Methimazole 2.5 mg 08/06/20 10:00 08/14/20 10:49 Methimazole 5 Mg Tablet PO 09/05/20 09:59 2.5 mg DAILY NICOLE Administration Metoprolol Tartrate 100 mg 08/11/20 22:00 08/14/20 10:48 Metoprolol Tartrate 100 Mg Tablet PO 09/10/20 21:59 100 mg Q12 NICOLE Administration Prednisone 40 mg 08/12/20 14:00 08/14/20 10:48 Prednisone 20 Mg Tablet PO 08/17/20 13:59 40 mg DAILY NICOLE Administration Sodium Biphosphate/Sodium Phosphate 133 ml 08/10/20 14:18 12/03/20 04:30 Na Phos,M-B/Na Phos,Di-Ba (Adult) 133 Ml Enema NM 09/09/20 14:17 133 ml DAILYP PRN Administration CONSTIPATION Sodium Chloride 2.5 ml 08/05/20 22:00 08/14/20 14:18 Normal Saline Flush 2.5 Ml Disp.Syrin IV 09/04/20 21:59 Not Given Q8 NICOLE Discontinued Medications Generic Name Dose Route Start Last Admin Trade Name Solange PRN Reason Stop Dose Admin Amlodipine Besylate 5 mg 08/06/20 10:00 Amlodipine Besylate 5 Mg Tablet PO 09/05/20 09:59 DAILY NICOLE Fentanyl Citrate Confirm 08/08/20 11:03 08/08/20 12:43 Fentanyl Citrate Inj/Pf 100 Mcg/2 Ml Ampul Administered 08/08/20 11:04 Not Given Dose 100 mcg .ROUTE .STK-MED ONE Furosemide 40 mg 08/12/20 10:00 08/12/20 10:10 Furosemide Inj/Pf 40 Mg/4 Ml Sdv IV 09/11/20 09:59 40 mg DAILY NICOLE Administration Sodium Chloride 1,000 mls @ 0 mls/hr 08/05/20 09:12 08/05/20 11:32 Nacl 0.9% 1000 Ml Iv Soln IV 08/05/20 09:13 Infused BOLUS ONE Infusion Wide Open Sodium Chloride 1,000 mls @ 150 mls/hr 08/05/20 15:00 08/09/20 11:00 Nacl 0.9% 1000 Ml Iv Soln IV 09/04/20 14:59 Infused CONTINUOUS PRN Infusion THIS MED IS NOT "PRN" Lactated Ringer's 1,000 mls @ 75 mls/hr 08/10/20 08:49 08/10/20 23:08 Lactated Ringers 1000 Ml Iv Soln IV 09/09/20 08:48 Infused CONTINUOUS PRN Infusion THIS MED IS NOT "PRN" Ceftriaxone Sodium/Dextrose 2 gm in 50 mls @ 100 mls/hr 08/10/20 18:00 08/10/20 18:26 Rocephin Rtu 2 Gm/D5w 50 Ml Premix Bag IV 08/17/20 17:59 Infused QPM NICOLE Infusion Metoprolol Tartrate 12.5 mg 08/06/20 10:00 08/09/20 22:35 Metoprolol Tartrate 25 Mg Tablet PO 09/05/20 09:59 12.5 mg Q12 NICOLE Administration Metoprolol Tartrate 50 mg 08/10/20 10:00 08/11/20 11:18 Metoprolol Tartrate 50 Mg Tablet PO 09/09/20 09:59 50 mg Q12 NICOLE Administration Midazolam HCl Confirm 08/08/20 11:03 08/08/20 12:43 Midazolam 2 Mg/2 Ml Inj Administered 08/08/20 11:04 Not Given Dose 2 mg .ROUTE .STK-MED ONE Potassium Chloride 10 meq 08/05/20 18:00 08/09/20 17:22 Potassium Chloride 10 Meq Tablet.Er PO 09/04/20 17:59 10 meq QPM NICOLE Administration Potassium Chloride 20 meq 08/06/20 10:00 08/09/20 11:02 Potassium Chloride 10 Meq Tablet.Er PO 09/05/20 09:59 20 meq DAILY NICOLE Administration Umeclidinium Barker 1 inh 08/06/20 10:00 Umeclidinium Barker 62.5 Mcg/Dose IH 09/05/20 09:59 DAILY NICOLE Verapamil HCl 5 mg 08/14/20 14:30 08/14/20 14:16 Verapamil Hcl Inj/Pf 5 Mg/2 Ml Sdv IV 08/14/20 14:31 5 mg NOW ONE Administration Review of Systems: Unable to obtain review of symptoms from the patient since he is nonverbal even though is awake and seems to be alert and seems to understand what is being said. PHYSICAL EXAMINATION: The patient appears to be a frail build and appears to be chronically ill and malnourished. He seems to be in mild respiratory distress. Selected Entries 08/14/20 08/14/20 08:04 08:40 Temperature 97.2 F Temperature Oral Source Pulse Rate 116 H Respiratory 25 H 20 Rate Blood Pressure 112/74 Blood Pressure 86 Mean BP Location Left Arm BP Position Supine O2 Sat by Pulse 96 Oximetry Oxygen Flow 2.00 Rate Oxygen Delivery Nasal Cannula Method Head, is atraumatic normocephalic. EYES: Pupils are equal round regular reactive to light accommodation. Extraocular movements are normal. There is no conjunctival pallor. There is no scleral icterus. EARS: Tympanic membranes are intact. External auditory canals are clear. NOSE: There is no deviated nasal septum. There is no inflammation nasal mucous membrane. MOUTH: Mucous membranes of the mouth are moist. There is bleeding from the gums. There is no ulcers. SKIN: There is no skin rashes or skin lesions. There is no petechia or ecchymosis. NECK: Is supple. There is no JVD. There is no accessory muscles of respiration use. Trachea central. There is no lymphadenopathy. There is no goiter. LUNGS: There is intercostal retraction present. There is diminished air entry and prolonged expiration. There is scattered bilateral rhonchi and dry crackles present. HEART: S1-S2 is heard. S1 is of normal intensity. Carotid sinus massage does show that the patient's heart rate has come down gradually to a certain extent and goes back gradually up hence this is more indicated with sinus tachycardia. There is no sign of fall and the rate of atrial intraventricular conduction suggestive of atrial flutter. There is systolic murmur left sternal border and the apex there is no rub. Abdomen: Soft. Nontender there is no paraspinal megaly. Bowel sounds are well heard. Extremities, femorals are diminished there is femoral bruits bilaterally. Leg pulses are difficult to palpate. There is no pedal edema. There is no DVT or cellulitis. There is no calf tenderness. [employer]: Patient is conscious but is nonverbal moves all 4 extremities. PSYCHIATRIC: The patient does not appear to be agitated or anxious. 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 Labs- Entire Visit 08/05/20 08/05/20 08/05/20 08:50 08:50 08:50 WBC Cancelled RBC Cancelled Hgb Cancelled Hct Cancelled MCV Cancelled MCH Cancelled MCHC Cancelled RDW Cancelled Plt Count Cancelled Lymph % (Auto) Cancelled [place] % (Auto) Cancelled Eos % (Auto) Cancelled Baso % (Auto) Cancelled Absolute Neuts (auto) Cancelled Absolute Lymphs (auto) Cancelled Absolute Monos (auto) Cancelled Absolute Eos (auto) Cancelled Absolute Basos (auto) Cancelled Total Counted Seg Neutrophils % Cancelled Seg Neuts % (Manual) Band Neutrophils % Lymphocytes % (Manual) Monocytes % (Manual) Eosinophils % (Manual) Basophils % (Manual) Metamyelocytes % Myelocytes % Abs Neuts (Manual) Abs Lymphs (Manual) Abs Monocytes (Manual) Absolute Eos (Manual) Abs Basophils (Manual) Toxic Granulation Toxic Vacuolation Platelet Estimate Cancelled Clumped Platelets Large Platelets Giant Platelets Platelet Comment Polychromasia Poikilocytosis Anisocytosis Ovalocytes RBC Morph Comment PT INR APTT D-Dimer Sodium 137.0 Potassium 4.3 Chloride 104 Carbon Dioxide 25 Anion Gap 8 BUN 46 H Creatinine 1.11 Est GFR ( Amer) > 60 Est GFR (MDRD) Non-Af > 60 Glucose 106 Lactic Acid Calcium 10.3 H Magnesium 2.0 Total Bilirubin 2.1 H Direct Bilirubin 1.2 H Neonat Total Bilirubin Not Reportable Neonat Direct Bilirubin Not Reportable Neonat Indirect Bili Not Reportable AST 200 H ALT 141 H Alkaline Phosphatase 164 H Creatine Kinase 114 CK-MB (CK-2) Troponin I < 0.012 Total Protein 6.0 L Albumin 3.1 L TSH Free T4 Urine Color Urine Appearance Urine pH Ur Specific [place] Urine Protein Urine Glucose (UA) Urine Ketones Urine Blood Urine Nitrite Urine Bilirubin Urine Urobilinogen Ur Leukocyte Esterase Urine WBC (Auto) Urine RBC (Auto) U Hyaline Cast (Auto) Squamous Epi Cells Auto Urine Mucus (Auto) Urine Ascorbic Acid Hepatitis A IgM Ab Hep Bs Antigen Hep B Core IgM Ab Hepatitis C Antibody Influenza A (RT-PCR) Influenza B (RT-PCR) RSV (RT-PCR) SARS-CoV-2 Rap RNA(RT-PCR) Slides for Path Review Cancelled 08/05/20 08/05/20 08/05/20 08:50 09:25 10:25 WBC 12.9 H RBC 4.54 Hgb 13.6 Hct 40.5 MCV 89 MCH 30.0 MCHC 33.6 RDW 13.5 Plt Count 100 L Lymph % (Auto) Not Reportable [place] % (Auto) Not Reportable Eos % (Auto) Not Reportable Baso % (Auto) Not Reportable Absolute Neuts (auto) Not Reportable Absolute Lymphs (auto) Not Reportable Absolute Monos (auto) Not Reportable Absolute Eos (auto) Not Reportable Absolute Basos (auto) Not Reportable Total Counted 100 Seg Neutrophils % Not Reportable Seg Neuts % (Manual) 84 H Band Neutrophils % Lymphocytes % (Manual) 10 L Monocytes % (Manual) 1 L Eosinophils % (Manual) 0 Basophils % (Manual) 0 Metamyelocytes % 3 H Myelocytes % 2 H Abs Neuts (Manual) 11.5 H Abs Lymphs (Manual) 1.3 Abs Monocytes (Manual) 0.1 Absolute Eos (Manual) 0.0 Abs Basophils (Manual) 0.0 Toxic Granulation Toxic Vacuolation Platelet Estimate Clumped Platelets PRESENT Large Platelets Giant Platelets PRESENT Platelet Comment ADEQUATE Polychromasia Poikilocytosis Anisocytosis Ovalocytes RBC Morph Comment NORMO-CYTIC/CHROMIC PT INR APTT D-Dimer 10.39 H Sodium Potassium Chloride Carbon Dioxide Anion Gap BUN Creatinine Est GFR ( Amer) Est GFR (MDRD) Non-Af Glucose Lactic Acid Calcium Magnesium Total Bilirubin Direct Bilirubin Neonat Total Bilirubin Neonat Direct Bilirubin Neonat Indirect Bili AST ALT Alkaline Phosphatase Creatine Kinase CK-MB (CK-2) Troponin I Total Protein Albumin TSH Free T4 Urine Color PETER Urine Appearance SLIGHTLY-CLOUDY Urine pH 5.0 Ur Specific [place] 1.023 Urine Protein 100 H Urine Glucose (UA) NEGATIVE Urine Ketones TRACE H Urine Blood NEGATIVE Urine Nitrite NEGATIVE Urine Bilirubin SMALL H Urine Urobilinogen 4.0 H Ur Leukocyte Esterase NEGATIVE Urine WBC (Auto) 3 Urine RBC (Auto) 2 U Hyaline Cast (Auto) 4 Squamous Epi Cells Auto <1 Urine Mucus (Auto) RARE Urine Ascorbic Acid NEGATIVE Hepatitis A IgM Ab Hep Bs Antigen Hep B Core IgM Ab Hepatitis C Antibody Influenza A (RT-PCR) Influenza B (RT-PCR) RSV (RT-PCR) SARS-CoV-2 Rap RNA(RT-PCR) Slides for Path Review PATHOLOGIST REVIEWED 08/05/20 08/06/20 08/06/20 18:25 03:59 03:59 WBC 11.6 H RBC 4.27 L Hgb 12.9 L Hct 38.2 MCV 90 MCH 30.2 MCHC 33.8 RDW 13.3 Plt Count 87 L Lymph % (Auto) [place] % (Auto) Eos % (Auto) Baso % (Auto) Absolute Neuts (auto) Absolute Lymphs (auto) Absolute Monos (auto) Absolute Eos (auto) Absolute Basos (auto) Total Counted Seg Neutrophils % Seg Neuts % (Manual) Band Neutrophils % Lymphocytes % (Manual) Monocytes % (Manual) Eosinophils % (Manual) Basophils % (Manual) Metamyelocytes % Myelocytes % Abs Neuts (Manual) Abs Lymphs (Manual) Abs Monocytes (Manual) Absolute Eos (Manual) Abs Basophils (Manual) Toxic Granulation Toxic Vacuolation Platelet Estimate Clumped Platelets Large Platelets Giant Platelets Platelet Comment Polychromasia Poikilocytosis Anisocytosis Ovalocytes RBC Morph Comment PT INR APTT D-Dimer Sodium 140.8 Potassium 4.0 Chloride 108 H Carbon Dioxide 22 Anion Gap 11 BUN 38 H Creatinine 0.91 Est GFR ( Amer) > 60 Est GFR (MDRD) Non-Af > 60 Glucose 84 Lactic Acid Calcium 9.6 Magnesium Total Bilirubin 2.0 H Direct Bilirubin 1.3 H Neonat Total Bilirubin Not Reportable Neonat Direct Bilirubin Not Reportable Neonat Indirect Bili Not Reportable AST 186 H ALT 134 H Alkaline Phosphatase 148 H Creatine Kinase CK-MB (CK-2) Troponin I Total Protein 5.6 L Albumin 2.9 L TSH 1.64 Free T4 Urine Color Urine Appearance Urine pH Ur Specific [place] Urine Protein Urine Glucose (UA) Urine Ketones Urine Blood Urine Nitrite Urine Bilirubin Urine Urobilinogen Ur Leukocyte Esterase Urine WBC (Auto) Urine RBC (Auto) U Hyaline Cast (Auto) Squamous Epi Cells Auto Urine Mucus (Auto) Urine Ascorbic Acid Hepatitis A IgM Ab Hep Bs Antigen Hep B Core IgM Ab Hepatitis C Antibody Influenza A (RT-PCR) Influenza B (RT-PCR) RSV (RT-PCR) SARS-CoV-2 Rap RNA(RT-PCR) Slides for Path Review 08/06/20 08/06/20 08/08/20 19:00 19:00 04:08 WBC 9.8 RBC 4.23 L Hgb 12.8 L Hct 38.0 MCV 90 MCH 30.2 MCHC 33.6 RDW 13.7 Plt Count 73 L Lymph % (Auto) Not Reportable [place] % (Auto) Not Reportable Eos % (Auto) Not Reportable Baso % (Auto) Not Reportable Absolute Neuts (auto) Not Reportable Absolute Lymphs (auto) Not Reportable Absolute Monos (auto) Not Reportable Absolute Eos (auto) Not Reportable Absolute Basos (auto) Not Reportable Total Counted 100 Seg Neutrophils % Not Reportable Seg Neuts % (Manual) 76 Band Neutrophils % 1 L Lymphocytes % (Manual) 15 Monocytes % (Manual) 7 Eosinophils % (Manual) 1 Basophils % (Manual) 0 Metamyelocytes % Myelocytes % Abs Neuts (Manual) 7.5 Abs Lymphs (Manual) 1.5 Abs Monocytes (Manual) 0.7 Absolute Eos (Manual) 0.1 Abs Basophils (Manual) 0.0 Toxic Granulation SLIGHT Toxic Vacuolation Platelet Estimate Clumped Platelets Large Platelets Giant Platelets Platelet Comment DECREASED Polychromasia Poikilocytosis SLIGHT Anisocytosis SLIGHT Ovalocytes SLIGHT RBC Morph Comment PT INR APTT D-Dimer 8.49 H Sodium Potassium Chloride Carbon Dioxide Anion Gap BUN Creatinine Est GFR ( Amer) Est GFR (MDRD) Non-Af Glucose Lactic Acid Calcium Magnesium Total Bilirubin Direct Bilirubin Neonat Total Bilirubin Neonat Direct Bilirubin Neonat Indirect Bili AST ALT Alkaline Phosphatase Creatine Kinase CK-MB (CK-2) Troponin I Total Protein Albumin TSH Free T4 Urine Color Urine Appearance Urine pH Ur Specific [place] Urine Protein Urine Glucose (UA) Urine Ketones Urine Blood Urine Nitrite Urine Bilirubin Urine Urobilinogen Ur Leukocyte Esterase Urine WBC (Auto) Urine RBC (Auto) U Hyaline Cast (Auto) Squamous Epi Cells Auto Urine Mucus (Auto) Urine Ascorbic Acid Hepatitis A IgM Ab Negative Hep Bs Antigen Negative Hep B Core IgM Ab Negative Hepatitis C Antibody <0.1 Influenza A (RT-PCR) Influenza B (RT-PCR) RSV (RT-PCR) SARS-CoV-2 Rap RNA(RT-PCR) Slides for Path Review 08/08/20 08/10/20 08/10/20 04:08 04:04 04:04 WBC 10.4 RBC 4.10 L Hgb 12.6 L Hct 36.8 L MCV 90 MCH 30.8 MCHC 34.3 RDW 13.8 Plt Count 98 L Lymph % (Auto) Not Reportable [place] % (Auto) Not Reportable Eos % (Auto) Not Reportable Baso % (Auto) Not Reportable Absolute Neuts (auto) Not Reportable Absolute Lymphs (auto) Not Reportable Absolute Monos (auto) Not Reportable Absolute Eos (auto) Not Reportable Absolute Basos (auto) Not Reportable Total Counted 100 Seg Neutrophils % Not Reportable Seg Neuts % (Manual) 80 H Band Neutrophils % 2 L Lymphocytes % (Manual) 6 L Monocytes % (Manual) 11 Eosinophils % (Manual) 0 Basophils % (Manual) 0 Metamyelocytes % 1 Myelocytes % Abs Neuts (Manual) 8.6 H Abs Lymphs (Manual) 0.6 Abs Monocytes (Manual) 1.1 Absolute Eos (Manual) 0.0 Abs Basophils (Manual) 0.0 Toxic Granulation Toxic Vacuolation PRESENT Platelet Estimate Clumped Platelets Large Platelets Giant Platelets Platelet Comment DECREASED Polychromasia Poikilocytosis Anisocytosis Ovalocytes RBC Morph Comment NORMO-CYTIC/CHROMIC PT 13.9 INR 1.05 APTT 27.3 D-Dimer Sodium 140.6 Potassium 5.1 H Chloride 114 H Carbon Dioxide 22 Anion Gap 5 BUN 31 H Creatinine 0.96 Est GFR ( Amer) > 60 Est GFR (MDRD) Non-Af > 60 Glucose 87 Lactic Acid Calcium 10.5 H Magnesium Total Bilirubin Direct Bilirubin Neonat Total Bilirubin Neonat Direct Bilirubin Neonat Indirect Bili AST ALT Alkaline Phosphatase Creatine Kinase CK-MB (CK-2) Troponin I Total Protein Albumin TSH Free T4 Urine Color Urine Appearance Urine pH Ur Specific [place] Urine Protein Urine Glucose (UA) Urine Ketones Urine Blood Urine Nitrite Urine Bilirubin Urine Urobilinogen Ur Leukocyte Esterase Urine WBC (Auto) Urine RBC (Auto) U Hyaline Cast (Auto) Squamous Epi Cells Auto Urine Mucus (Auto) Urine Ascorbic Acid Hepatitis A IgM Ab Hep Bs Antigen Hep B Core IgM Ab Hepatitis C Antibody Influenza A (RT-PCR) Influenza B (RT-PCR) RSV (RT-PCR) SARS-CoV-2 Rap RNA(RT-PCR) Slides for Path Review 08/10/20 08/11/20 08/11/20 04:04 07:59 07:59 WBC 9.1 RBC 4.18 L Hgb 12.6 L Hct 37.4 L MCV 89 MCH 30.1 MCHC 33.7 RDW 14.0 Plt Count 106 L Lymph % (Auto) Not Reportable [place] % (Auto) Not Reportable Eos % (Auto) Not Reportable Baso % (Auto) Not Reportable Absolute Neuts (auto) Not Reportable Absolute Lymphs (auto) Not Reportable Absolute Monos (auto) Not Reportable Absolute Eos (auto) Not Reportable Absolute Basos (auto) Not Reportable Total Counted 100 Seg Neutrophils % Not Reportable Seg Neuts % (Manual) 86 H Band Neutrophils % 1 L Lymphocytes % (Manual) 6 L Monocytes % (Manual) 7 Eosinophils % (Manual) 0 Basophils % (Manual) 0 Metamyelocytes % Myelocytes % Abs Neuts (Manual) 7.9 Abs Lymphs (Manual) 0.5 Abs Monocytes (Manual) 0.6 Absolute Eos (Manual) 0.0 Abs Basophils (Manual) 0.0 Toxic Granulation Toxic Vacuolation Platelet Estimate Clumped Platelets Large Platelets PRESENT Giant Platelets Platelet Comment DECREASED Polychromasia Poikilocytosis Anisocytosis SLIGHT Ovalocytes RBC Morph Comment PT INR APTT D-Dimer Sodium 141.1 Potassium 4.6 Chloride 112 H Carbon Dioxide 20 L Anion Gap 9 BUN 37 H Creatinine 1.00 Est GFR ( Amer) > 60 Est GFR (MDRD) Non-Af > 60 Glucose 99 Lactic Acid Calcium 10.1 Magnesium Total Bilirubin Direct Bilirubin Neonat Total Bilirubin Neonat Direct Bilirubin Neonat Indirect Bili AST ALT Alkaline Phosphatase Creatine Kinase CK-MB (CK-2) Troponin I Total Protein Albumin TSH 2.55 Free T4 Urine Color Urine Appearance Urine pH Ur Specific [place] Urine Protein Urine Glucose (UA) Urine Ketones Urine Blood Urine Nitrite Urine Bilirubin Urine Urobilinogen Ur Leukocyte Esterase Urine WBC (Auto) Urine RBC (Auto) U Hyaline Cast (Auto) Squamous Epi Cells Auto Urine Mucus (Auto) Urine Ascorbic Acid Hepatitis A IgM Ab Hep Bs Antigen Hep B Core IgM Ab Hepatitis C Antibody Influenza A (RT-PCR) Influenza B (RT-PCR) RSV (RT-PCR) SARS-CoV-2 Rap RNA(RT-PCR) Slides for Path Review 08/11/20 08/11/20 08/11/20 14:26 14:26 14:26 WBC RBC Hgb Hct MCV MCH MCHC RDW Plt Count Lymph % (Auto) [place] % (Auto) Eos % (Auto) Baso % (Auto) Absolute Neuts (auto) Absolute Lymphs (auto) Absolute Monos (auto) Absolute Eos (auto) Absolute Basos (auto) Total Counted Seg Neutrophils % Seg Neuts % (Manual) Band Neutrophils % Lymphocytes % (Manual) Monocytes % (Manual) Eosinophils % (Manual) Basophils % (Manual) Metamyelocytes % Myelocytes % Abs Neuts (Manual) Abs Lymphs (Manual) Abs Monocytes (Manual) Absolute Eos (Manual) Abs Basophils (Manual) Toxic Granulation Toxic Vacuolation Platelet Estimate Clumped Platelets Large Platelets Giant Platelets Platelet Comment Polychromasia Poikilocytosis Anisocytosis Ovalocytes RBC Morph Comment PT INR APTT D-Dimer Sodium Potassium Chloride Carbon Dioxide Anion Gap BUN Creatinine Est GFR ( Amer) Est GFR (MDRD) Non-Af Glucose Lactic Acid 2.0 Calcium Magnesium Total Bilirubin Direct Bilirubin Neonat Total Bilirubin Neonat Direct Bilirubin Neonat Indirect Bili AST ALT Alkaline Phosphatase Creatine Kinase CK-MB (CK-2) Troponin I 0.048 Total Protein Albumin TSH Free T4 0.88 Urine Color Urine Appearance Urine pH Ur Specific [place] Urine Protein Urine Glucose (UA) Urine Ketones Urine Blood Urine Nitrite Urine Bilirubin Urine Urobilinogen Ur Leukocyte Esterase Urine WBC (Auto) Urine RBC (Auto) U Hyaline Cast (Auto) Squamous Epi Cells Auto Urine Mucus (Auto) Urine Ascorbic Acid Hepatitis A IgM Ab Hep Bs Antigen Hep B Core IgM Ab Hepatitis C Antibody Influenza A (RT-PCR) Influenza B (RT-PCR) RSV (RT-PCR) SARS-CoV-2 Rap RNA(RT-PCR) Slides for Path Review 08/11/20 08/11/20 08/12/20 19:55 19:55 05:46 WBC 8.5 RBC 4.00 L Hgb 12.0 L Hct 35.9 L MCV 90 MCH 30.1 MCHC 33.5 RDW 13.7 Plt Count 95 L Lymph % (Auto) Not Reportable [place] % (Auto) Not Reportable Eos % (Auto) Not Reportable Baso % (Auto) Not Reportable Absolute Neuts (auto) Not Reportable Absolute Lymphs (auto) Not Reportable Absolute Monos (auto) Not Reportable Absolute Eos (auto) Not Reportable Absolute Basos (auto) Not Reportable Total Counted 100 Seg Neutrophils % Not Reportable Seg Neuts % (Manual) 69 Band Neutrophils % 5 Lymphocytes % (Manual) 18 Monocytes % (Manual) 8 Eosinophils % (Manual) 0 Basophils % (Manual) 0 Metamyelocytes % Myelocytes % Abs Neuts (Manual) 6.3 Abs Lymphs (Manual) 1.5 Abs Monocytes (Manual) 0.7 Absolute Eos (Manual) 0.0 Abs Basophils (Manual) 0.0 Toxic Granulation Toxic Vacuolation Platelet Estimate Clumped Platelets Large Platelets Giant Platelets Platelet Comment DECREASED Polychromasia Poikilocytosis Anisocytosis Ovalocytes RBC Morph Comment NORMO-CYTIC/CHROMIC PT INR APTT D-Dimer Sodium Potassium Chloride Carbon Dioxide Anion Gap BUN Creatinine Est GFR ( Amer) Est GFR (MDRD) Non-Af Glucose Lactic Acid Calcium Magnesium Total Bilirubin Direct Bilirubin Neonat Total Bilirubin Neonat Direct Bilirubin Neonat Indirect Bili AST ALT Alkaline Phosphatase Creatine Kinase 84 CK-MB (CK-2) 0.78 Troponin I Total Protein Albumin TSH Free T4 Urine Color Urine Appearance Urine pH Ur Specific [place] Urine Protein Urine Glucose (UA) Urine Ketones Urine Blood Urine Nitrite Urine Bilirubin Urine Urobilinogen Ur Leukocyte Esterase Urine WBC (Auto) Urine RBC (Auto) U Hyaline Cast (Auto) Squamous Epi Cells Auto Urine Mucus (Auto) Urine Ascorbic Acid Hepatitis A IgM Ab Hep Bs Antigen Hep B Core IgM Ab Hepatitis C Antibody Influenza A (RT-PCR) Influenza B (RT-PCR) RSV (RT-PCR) SARS-CoV-2 Rap RNA(RT-PCR) Slides for Path Review 08/12/20 08/12/20 08/14/20 05:46 19:30 05:14 WBC 9.4 RBC 3.88 L Hgb 11.9 L Hct 34.8 L MCV 90 MCH 30.6 MCHC 34.1 RDW 14.1 H Plt Count 88 L Lymph % (Auto) Not Reportable [place] % (Auto) Not Reportable Eos % (Auto) Not Reportable Baso % (Auto) Not Reportable Absolute Neuts (auto) Not Reportable Absolute Lymphs (auto) Not Reportable Absolute Monos (auto) Not Reportable Absolute Eos (auto) Not Reportable Absolute Basos (auto) Not Reportable Total Counted 100 Seg Neutrophils % Not Reportable Seg Neuts % (Manual) 76 Band Neutrophils % 8 H Lymphocytes % (Manual) 11 L Monocytes % (Manual) 5 Eosinophils % (Manual) 0 Basophils % (Manual) 0 Metamyelocytes % Myelocytes % Abs Neuts (Manual) 7.9 Abs Lymphs (Manual) 1.0 Abs Monocytes (Manual) 0.5 Absolute Eos (Manual) 0.0 Abs Basophils (Manual) 0.0 Toxic Granulation Toxic Vacuolation Platelet Estimate Clumped Platelets Large Platelets Giant Platelets Platelet Comment DECREASED Polychromasia 1+ Poikilocytosis Anisocytosis 1+ Ovalocytes RBC Morph Comment PT INR APTT D-Dimer Sodium 141.2 Potassium 4.8 Chloride 112 H Carbon Dioxide 21 L Anion Gap 8 BUN 45 H Creatinine 1.14 Est GFR ( Amer) > 60 Est GFR (MDRD) Non-Af > 60 Glucose 107 Lactic Acid Calcium 9.9 Magnesium Total Bilirubin Direct Bilirubin Neonat Total Bilirubin Neonat Direct Bilirubin Neonat Indirect Bili AST ALT Alkaline Phosphatase Creatine Kinase CK-MB (CK-2) Troponin I Total Protein Albumin TSH Free T4 Urine Color Urine Appearance Urine pH Ur Specific [place] Urine Protein Urine Glucose (UA) Urine Ketones Urine Blood Urine Nitrite Urine Bilirubin Urine Urobilinogen Ur Leukocyte Esterase Urine WBC (Auto) Urine RBC (Auto) U Hyaline Cast (Auto) Squamous Epi Cells Auto Urine Mucus (Auto) Urine Ascorbic Acid Hepatitis A IgM Ab Hep Bs Antigen Hep B Core IgM Ab Hepatitis C Antibody Influenza A (RT-PCR) NEGATIVE Influenza B (RT-PCR) NEGATIVE RSV (RT-PCR) NEGATIVE SARS-CoV-2 Rap RNA(RT-PCR) NEGATIVE Slides for Path Review 08/14/20 08/14/20 05:14 05:14 WBC RBC Hgb Hct MCV MCH MCHC RDW Plt Count Lymph % (Auto) [place] % (Auto) Eos % (Auto) Baso % (Auto) Absolute Neuts (auto) Absolute Lymphs (auto) Absolute Monos (auto) Absolute Eos (auto) Absolute Basos (auto) Total Counted Seg Neutrophils % Seg Neuts % (Manual) Band Neutrophils % Lymphocytes % (Manual) Monocytes % (Manual) Eosinophils % (Manual) Basophils % (Manual) Metamyelocytes % Myelocytes % Abs Neuts (Manual) Abs Lymphs (Manual) Abs Monocytes (Manual) Absolute Eos (Manual) Abs Basophils (Manual) Toxic Granulation Toxic Vacuolation Platelet Estimate Clumped Platelets Large Platelets Giant Platelets Platelet Comment Polychromasia Poikilocytosis Anisocytosis Ovalocytes RBC Morph Comment PT INR APTT D-Dimer Sodium 140.6 Potassium 4.4 Chloride 111 H Carbon Dioxide 23 Anion Gap 7 BUN 63 H Creatinine 1.34 H Est GFR ( Amer) > 60 Est GFR (MDRD) Non-Af 53 L Glucose 100 Lactic Acid Calcium 10.3 H Magnesium 2.6 H Total Bilirubin Direct Bilirubin Neonat Total Bilirubin Neonat Direct Bilirubin Neonat Indirect Bili AST ALT Alkaline Phosphatase Creatine Kinase CK-MB (CK-2) Troponin I Total Protein Albumin TSH Free T4 Urine Color Urine Appearance Urine pH Ur Specific [place] Urine Protein Urine Glucose (UA) Urine Ketones Urine Blood Urine Nitrite Urine Bilirubin Urine Urobilinogen Ur Leukocyte Esterase Urine WBC (Auto) Urine RBC (Auto) U Hyaline Cast (Auto) Squamous Epi Cells Auto Urine Mucus (Auto) Urine Ascorbic Acid Hepatitis A IgM Ab Hep Bs Antigen Hep B Core IgM Ab Hepatitis C Antibody Influenza A (RT-PCR) Influenza B (RT-PCR) RSV (RT-PCR) SARS-CoV-2 Rap RNA(RT-PCR) Slides for Path Review Chest X-Ray 08/05/20 08:58 IMPRESSION: HYPERINFLATION. NO ACUTE RADIOGRAPHIC FINDING IN THE CHEST. Abdomen Ultrasound 08/05/20 09:51 IMPRESSION: Nodular appearing liver, multinodular cirrhosis versus liver metastatic disease Multiple stones in the gallbladder without sonographic signs of acute cholecystitis Echogenic atrophic right kidney Abdomen/Pelvis CT 08/05/20 11:50 IMPRESSION: 1. Suspicious 2.3 cm solid nodule in the right medial lower lobe. This may be amenable to percutaneous sampling. Additionally, there are 2 indeterminate subcentimeter solid nodules in the left lower lobe. Background moderate pulmonary emphysema. 2. Innumerable hepatic metastases. 3. Infrarenal aortic bi-iliac stent graft. 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 4. Multiple bilateral indeterminate renal cortical lesions. Moderately suspicious 9 mm lesion at the inferior pole right kidney. Renal protocol MRI or CT may provide additional information, however many of these are too small to adequately characterize and follow-up may be required. 5. Prostatomegaly. Chest CT 08/05/20 11:51 IMPRESSION: 1. Suspicious 2.3 cm solid nodule in the right medial lower lobe. This may be amenable to percutaneous sampling. Additionally, there are 2 indeterminate subcentimeter solid nodules in the left lower lobe. Background moderate pulmonary emphysema. 2. Innumerable hepatic metastases. 3. Infrarenal aortic bi-iliac stent graft. 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 4. Multiple bilateral indeterminate renal cortical lesions. Moderately suspi cious 9 mm lesion at the inferior pole right kidney. Renal protocol MRI or CT may provide additional information, however many of these are too small to adequately characterize and follow-up may be required. 5. Prostatomegaly. Head CT 08/05/20 14:55 IMPRESSION: NORMAL BRAIN CT WITHOUT CONTRAST. EVIDENCE OF ACUTE STROKE: NO. Chest/Abdomen CTA 08/06/20 00:00 IMPRESSION: NO PULMONARY EMBOLI. Guidance Needle Placement CT 08/08/20 00:00 IMPRESSION: CT GUIDED TARGETED LIVER BIOPSY PERFORMED ABOVE. PATHOLOGY PENDING. NO IMMEDIATE COMPLICATIONS. 6 CORES WERE OBTAINED. Liver Biopsy CT 08/08/20 00:00 IMPRESSION: CT GUIDED TARGETED LIVER BIOPSY PERFORMED ABOVE. PATHOLOGY PENDING. NO IMMEDIATE COMPLICATIONS. 6 CORES WERE OBTAINED. Chest X-Ray 08/10/20 08:30 IMPRESSION: Findings concerning for right lower lobe pneumonia. Head CT 08/11/20 07:15 IMPRESSION: Subtle findings may represent a subacute left frontal lobe ischemic injury ; consider MR imaging for improved characterization. Ill-defined lucency of the right temporal fossa skull base is of uncertain etiology or significance. No discrete mass. Background of mild microvascular and involutional changes. EVIDENCE OF ACUTE STROKE: NO. The patient is multiple EKGs have been reviewed. Today's EKG shows sinus tachycardia. Right bundle branch block pattern with left anterior fascicle block. There is no evidence of atrial flutter. IMPRESSION/RECOMMENDATION: 1. Sinus tachycardia: This is reactive secondary to patient's current lung condition. There is no evidence at present that the patient has atrial flutter/fibrillation. If the patient does develop atrial flutter the only course would be to control the patient's heart rate with Cardizem instead of Lopressor. The patient not a candidate for long-term anticoagulation therapy. But at present so far there is no evidence of atrial flutter. 2. Lung cancer with liver mets. 3. Chronic obstructive pulmonary disease. Continue current therapy. 4. Hypertension: Patient's blood pressure is well controlled. 5. Peripheral vascular disease: At present seems to be stable. 6. Abnormal liver function tests: This is secondary to liver metastasis. 7 cachexia and malnourishment. Medications reviewed medical regimen management plan discussed with the attending provider on the case. [Dr. Castillo]. Medical decision making is of high complexity. 60 minutes spent as patient with more than 50% time spent in direct patient care. At present we will sign off and please reconsult if needed.
[2020-08-14] MEDS ORDERED: DILTIAZEM HCL 120 MG CAP.SR.24H PO SCH (22:00)
[2020-08-15] MEDS: AZITHROMYCIN 500 MG in DEXTROSE 5%-WATER 250 ML IV SCH ×2 (00:37→23:43)
[2020-08-15] MEDS ORDERED: FENTANYL CITRATE INJ/PF 100 MCG/2 ML AMPUL ONE (06:22)
[2020-08-15] MEDS ORDERED: MIDAZOLAM 2 MG/2 ML INJ ONE (06:22)
[2020-08-15] MEDS ORDERED: PROPOFOL INJ 200 MG/20 ML VIAL IV ONE (06:22)
[2020-08-15] MEDS: IPRATROPIUM/ALBUTEROL 0.5-2.5 MG/3 ML AMPUL NEB SCH ×4 (07:56→19:17)
--- NOTE | 2020-08-15 08:04 | PDOC PROGRESS REPORT ---
Subjective Date:: 08/15/20 Subjective:: Patient is awake and talkative this morning. His CPAP was already removed. He tells me that he did wear this last night. His mouth is dry, but he is able to answer all my questions and seems appropriate. He denies any pain, dyspnea, constipation, or other problems. He has not yet eaten breakfast, but states that he has a good appetite. Reason For Visit: D 3 ETOP/ Physical Exam Vital Signs: Temp Pulse Resp BP Pulse Ox 97.5 F 103 H 20 121/72 96 08/14/20 23:24 08/15/20 07:00 08/14/20 23:24 08/14/20 23:24 08/14/20 23:24 Intake & Output 08/14/20 08/15/20 08/16/20 06:59 06:59 06:59 Intake Total 606 490 Output Total 795 225 Balance -189 265 Weight 90.1 kg 87.5 kg General appearance: PRESENT: no acute distress, thin Head exam: PRESENT: normocephalic Eye exam: PRESENT: EOMI Mouth exam: PRESENT: dry mucosa Respiratory exam: PRESENT: clear to auscultation nicole, unlabored Cardiovascular exam: PRESENT: RRR GI/Abdominal exam: PRESENT: soft. ABSENT: tenderness Extremities exam: ABSENT: pedal edema Neurological exam: PRESENT: alert, awake Psychiatric exam: PRESENT: appropriate affect Skin exam: PRESENT: normal color Results Laboratory Results: 08/14/20 05:14 08/14/20 05:14 08/14/20 05:14 Magnesium 2.6 H 08/05/20 08/05/20 08/11/20 08:50 08:50 14:26 Creatine Kinase 114 CK-MB (CK-2) Troponin I < 0.012 0.048 08/11/20 08/11/20 19:55 19:55 Creatine Kinase 84 CK-MB (CK-2) 0.78 Troponin I Impressions: Abdomen Ultrasound 08/05/20 09:51 IMPRESSION: Nodular appearing liver, multinodular cirrhosis versus liver metastatic disease Multiple stones in the gallbladder without sonographic signs of acute cholecysti tis Echogenic atrophic right kidney Abdomen/Pelvis CT 08/05/20 11:50 IMPRESSION: 1. Suspicious 2.3 cm solid nodule in the right medial lower lobe. This may be amenable to percutaneous sampling. Additionally, there are 2 indeterminate subcentimeter solid nodules in the left lower lobe. Background moderate pulmonary emphysema. 2. Innumerable hepatic metastases. 3. Infrarenal aortic bi-iliac stent graft. 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 4. Multiple bilateral indeterminate renal cortical lesions. Moderately suspicious 9 mm lesion at the inferior pole right kidney. Renal protocol MRI or CT may provide additional information, however many of these are too small to adequately characterize and follow-up may be required. 5. Prostatomegaly. Chest CT 08/05/20 11:51 IMPRESSION: 1. Suspicious 2.3 cm solid nodule in the right medial lower lobe. This may be amenable to percutaneous sampling. Additionally, there are 2 indeterminate subcentimeter solid nodules in the left lower lobe. Background moderate pulmonary emphysema. 2. Innumerable hepatic metastases. 3. Infrarenal aortic bi-iliac stent graft. 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 4. Multiple bilateral indeterminate renal cortical lesions. Moderately suspicious 9 mm lesion at the inferior pole right kidney. Renal protocol MRI or CT may provide additional information, however many of these are too small to adequately characterize and follow-up may be required. 5. Prostatomegaly. Chest/Abdomen CTA 08/06/20 00:00 IMPRESSION: NO PULMONARY EMBOLI. Guidance Needle Placement CT 08/08/20 00:00 IMPRESSION: CT GUIDED TARGETED LIVER BIOPSY PERFORMED ABOVE. PATHOLOGY PENDING. NO IMMEDIATE COMPLICATIONS. 6 CORES WERE OBTAINED. Liver Biopsy CT 08/08/20 00:00 IMPRESSION: CT GUIDED TARGETED LIVER BIOPSY PERFORMED ABOVE. PATHOLOGY PENDING. NO IMMEDIATE COMPLICATIONS. 6 CORES WERE OBTAINED. Chest X-Ray 08/10/20 08:30 IMPRESSION: Findings concerning for right lower lobe pneumonia. Head CT 08/11/20 07:15 IMPRESSION: Subtle findings may represent a subacute left frontal lobe ischemic injury ; consider MR imaging for improved characterization. Ill-defined lucency of the right temporal fossa skull base is of uncertain etiology or significance. No discrete mass. Background of mild microvascular and involutional changes. EVIDENCE OF ACUTE STROKE: NO. Assessment & Plan - Diagnosis (1) COPD (chronic obstructive pulmonary disease) Is this a current diagnosis for this admission?: Yes (2) Elevated liver enzymes Is this a current diagnosis for this admission?: Yes (3) Lung nodule Is this a current diagnosis for this admission?: Yes (4) Lung cancer Is this a current diagnosis for this admission?: Yes Plan: Plan for port today and start cycle #1 of chemo tomorrow morning. I have confirmed with the pharmacy that drugs are in house and ready to go. I spoke with Dr. Kang who is planning port today. Patient is still a full code. I agree that his mental status is worse later in the day, but just after he comes off CPAP, he is much more alert and talkative. - Time Time Spent with patient: 15-24 minutes
--- NOTE | 2020-08-15 08:16 | EKG REPORT ---
SEVERITY:- ABNORMAL ECG - SINUS TACHYCARDIA LEFT ANTERIOR FASCICULAR BLOCK LOW VOLTAGE IN FRONTAL LEADS BORDERLINE T ABNORMALITIES, ANT-LAT LEADS : Confirmed by: Nasir Lorenzo 15-Aug-2020 08:15:48
[2020-08-15] MEDS ORDERED: LIDOCAINE 1%/EPINEPHRINE INJ 20 ML VIAL ONE (09:32)
--- NOTE | 2020-08-15 09:45 | PDOC PROGRESS REPORT ---
Subjective Date:: 08/15/20 Reason For Visit: D 3 ETOP/ Patient noncommunicative this morning Physical Exam Vital Signs: Temp Pulse Resp BP Pulse Ox 97.5 F 105 H 22 H 125/78 92 08/15/20 09:05 08/15/20 09:05 08/15/20 09:05 08/15/20 09:05 08/15/20 09:05 Intake & Output 08/14/20 08/15/20 08/16/20 06:59 06:59 06:59 Intake Total 606 490 Output Total 795 225 Balance -189 265 Weight 90.1 kg 87.5 kg General appearance: PRESENT: no acute distress Exam: Patient flailing about in bed. Neck exam: PRESENT: other - No JVD. Psychiatric exam: PRESENT: other - Patient noncommunicative, eyes open, flailing about with upper extremities Results Laboratory Results: 08/14/20 05:14 08/14/20 05:14 Magnesium 2.6 H 08/05/20 08/05/20 08/11/20 08:50 08:50 14:26 Creatine Kinase 114 CK-MB (CK-2) Troponin I < 0.012 0.048 08/11/20 08/11/20 19:55 19:55 Creatine Kinase 84 CK-MB (CK-2) 0.78 Troponin I Impressions: Abdomen Ultrasound 08/05/20 09:51 IMPRESSION: Nodular appearing liver, multinodular cirrhosis versus liver metastatic disease Multiple stones in the gallbladder without sonographic signs of acute cholecystitis Echogenic atrophic right kidney Abdomen/Pelvis CT 08/05/20 11:50 IMPRESSION: 1. Suspicious 2.3 cm solid nodule in the right medial lower lobe. This may be amenable to percutaneous sampling. Additionally, there are 2 indeterminate subcentimeter solid nodules in the left lower lobe. Background moderate pulmonary emphysema. 2. Innumerable hepatic metastases. 3. Infrarenal aortic bi-iliac stent graft. 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 4. Multiple bilateral indeterminate renal cortical lesions. Moderately suspic ious 9 mm lesion at the inferior pole right kidney. Renal protocol MRI or CT may provide additional information, however many of these are too small to adequately characterize and follow-up may be required. 5. Prostatomegaly. Chest CT 08/05/20 11:51 IMPRESSION: 1. Suspicious 2.3 cm solid nodule in the right medial lower lobe. This may be amenable to percutaneous sampling. Additionally, there are 2 indeterminate subcentimeter solid nodules in the left lower lobe. Background moderate pulmonary emphysema. 2. Innumerable hepatic metastases. 3. Infrarenal aortic bi-iliac stent graft. 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 4. Multiple bilateral indeterminate renal cortical lesions. Moderately suspicious 9 mm lesion at the inferior pole right kidney. Renal protocol MRI or CT may provide additional information, however many of these are too small to adequately characterize and follow-up may be required. 5. Prostatomegaly. Chest/Abdomen CTA 08/06/20 00:00 IMPRESSION: NO PULMONARY EMBOLI. Guidance Needle Placement CT 08/08/20 00:00 IMPRESSION: CT GUIDED TARGETED LIVER BIOPSY PERFORMED ABOVE. PATHOLOGY PENDING. NO IMMEDIATE COMPLICATIONS. 6 CORES WERE OBTAINED. Liver Biopsy CT 08/08/20 00:00 IMPRESSION: CT GUIDED TARGETED LIVER BIOPSY PERFORMED ABOVE. PATHOLOGY PENDING. NO IMMEDIATE COMPLICATIONS. 6 CORES WERE OBTAINED. Chest X-Ray 08/10/20 08:30 IMPRESSION: Findings concerning for right lower lobe pneumonia. Head CT 08/11/20 07:15 IMPRESSION: Subtle findings may represent a subacute left frontal lobe ischemic injury ; consider MR imaging for improved characterization. Ill-defined lucency of the right temporal fossa skull base is of uncertain etiology or significance. No discrete mass. Background of mild microvascular and involutional changes. EVIDENCE OF ACUTE STROKE: NO. Assessment & Plan - Diagnosis (1) Cognitive dysfunction Is this a current diagnosis for this admission?: Yes Plan: Impression: 70-year-old white male with metastatic lung carcinoma, small cell, offered systemic chemotherapy, needs [id number] Discussion: 1. Patient is cognitively impaired and cannot provide informed consent. Therefore spoke with patient's , Sharonda Multani, who is the acting healthcare power of employment attorney. She states patient is a full code, and would like to proceed with port placement. I explained that there are risks associated with this intervention clean bleeding, infection, thorax, port failure, need for additional surgery, cardiovascular collapse and even in rare cases . She agrees to proceed 2. Patient's Covid status is negative 3. I discussed the above with the anesthesiologist, (2) COPD (chronic obstructive pulmonary disease) Is this a current diagnosis for this admission?: Yes (3) Metastasis to liver of unknown origin Is this a current diagnosis for this admission?: Yes - Time Anticipated Discharge Disposition: Long-Term Facility Anticipated Discharge Timeframe: within 72 hours
[2020-08-15] MEDS ORDERED: CEFAZOLIN INJ 1 GM VIAL ONE (10:03)
[2020-08-15] MEDS ORDERED: FENTANYL CITRATE INJ/PF 100 MCG/2 ML AMPUL IV PRN ×3 (10:23)
[2020-08-15] MEDS ORDERED: DIPHENHYDRAMINE HCL 50 MG/ML VIAL IV PRN (10:23)
[2020-08-15] MEDS ORDERED: PROMETHAZINE HCL INJ 25 MG/1 ML VIAL IV PRN ×2 (10:23)
[2020-08-15] MEDS ORDERED: MEPERIDINE HCL/PF INJ 25 MG/1 ML DISP.SYRIN IV PRN (10:23)
--- NOTE | 2020-08-15 10:38 | Operative Report ---
Operative Report DATE OF SURGERY: 08/15/20 PREOPERATIVE DIAGNOSIS: Metastatic small cell lung carcinoma POSTOPERATIVE DIAGNOSIS: Same OPERATION: 1. Ultrasound directed insertion of right internal jugular vein catheter. 2. Placement of single-chamber [id number] in the right subclavian position. 3. Interpretation of intraoperative fluoroscopy SURGEON: MARTY ROLLE ANESTHESIA: LMAC TISSUE REMOVED OR ALTERED: None COMPLICATIONS: None ESTIMATED BLOOD LOSS: Minimal INTRAOPERATIVE FINDINGS: See below PROCEDURE: Patient was taken the preop holding area to the main operating room where LMAC anesthesia was induced. The neck and chest wall were clipped of hair, prepped and draped in sterile fashion Surgical plan and surgical timeout were conducted. The right internal jugular vein was scanned with a variable frequency linear transducer and felt to be suitable for cannulation. Overlying skin was anesthetized with 1% plain lidocaine. A kalia was made the skin with 11 blade, and micro needle was threaded into the right internal jugular vein using ultrasound guidance. A microwire was threaded into the right IJ and needle removed. A suitable site for placement of the port was chosen in the right subclavian position. Skin was anesthetized 1% plain lidocaine. A 3 cm horizontal incision was made with a 15 blade, using blunt dissection and electrocautery, port pocket was developed large enough to accommodate a single-chamber [id number] catheter. The catheter was then trimmed to the appropriate length, tunnel between the 2 incisions, and the free and attached to the port, using the plastic ring to secure it. The port was tucked into the right subclavian pocket. Under fluoroscopic guidance, the microneedle was switched over to a conventional 0.030 inch guidewire. The 9 [place]ian dilator introducer sheath was threaded over the guidewire. Guidewire and dilator removed, and free catheter fragment threaded into the right internal jugular vein. Strip away sheath was removed leaving the catheter in good position, with the tip in the right atrium, no evidence of ectopy, and no evidence of kinking of the catheter at the neck. The catheter was aspirated and flushed with heparinized saline. Wounds closed with 3-0 Vicryl benzoin and Steri-Strips. Patient tolerated the procedure well, taken to the recovery room stable condition.
[2020-08-15] MEDS: ASPIRIN 325 MG TABLET PO SCH (12:19)
[2020-08-15] MEDS: METHIMAZOLE 5 MG TABLET PO SCH (12:20)
[2020-08-15] MEDS: ENOXAPARIN SODIUM INJ 40 MG/0.4 ML DISP.SYRIN SUBCUT SCH (12:20)
[2020-08-15] MEDS: METOPROLOL TARTRATE 100 MG TABLET PO SCH ×2 (12:20→22:32)
[2020-08-15] MEDS: PREDNISONE 20 MG TABLET PO SCH (12:20)
[2020-08-15] MEDS: CHOLECALCIFEROL (D3) 1,000 UNIT (25 MCG) TABLET PO SCH (12:21)
[2020-08-15] MEDS: CEFEPIME HCL 2 GM in DEXTROSE 5%-WATER 50 ML IV SCH ×2 (12:29→22:31)
[2020-08-15] MEDS: FLUTICASONE/UMECLIDIN/VILANTER 100-62.5-25 MCG/DOSE IH SCH (12:30)
[2020-08-15 13:31] LABS: ALBUMIN 2.8 g/dL (3.5-5.0); ALKALINE PHOSPHATASE 207 U/L (38-126); ANION GAP 9 (5-19); ASPARTATE AMINO TRANSFERASE 277 U/L (17-59); BILIRUBIN,DIRECT 1.7 mg/dL (0.0-0.4); BILIRUBIN,TOTAL 2.2 mg/dL (0.2-1.3); BLOOD UREA NITROGEN 61 mg/dL (7-20); CALCIUM 10.6 mg/dL (8.4-10.2); CARBON DIOXIDE 22 mmol/L (22-30); CHLORIDE 114 mmol/L (98-107); GLUCOSE 96 mg/dL (75-110); POTASSIUM 4.3 mmol/L (3.6-5.0); TOTAL PROTEIN 5.6 g/dL (6.3-8.2)
--- NOTE | 2020-08-15 17:39 | PDOC PROGRESS REPORT ---
Subjective Subjective:: Per Previous Physician: "History of Present Illness: LAUREN GOVEA is a 70 year old male who has history of hypertension, aortic aneurysm status post endovascular repair, COPD not on home oxygen. Patient is a former smoker. He does not drink. Patient was scheduled for CT scan outpatient earlier today. Before he underwent the scan, he apparently fell in the bathroom was some head trauma. Patient mentioned that his legs gave out on him. He denied any dizziness. Is not sure if he lost consciousness. Denies any seizure activity or incontinence. He mentioned that he has not been eating as usual for the past 5 days but was able to keep fluids in. Work-up in the emergency room was positive for lung mass with numerous liver metastases. Interval history: 08/06/2020: Patient was seen and examined. He is stable on nasal cannula oxygen. Apparently he desaturated rapidly with minimal exertion. Slightly tachycardic. 08/07/2020: Patient was seen and examined. He is currently stable respiratory chase. CT angiogram negative for PE." 08/08/2020 Patient having liver biopsy reportedly. This may be easier to access tissue than a lung biopsy and probably safer as well. Patient is confused today but he is mostly oriented. He is unable to tell me the exact hospital he is in but otherwise knows who he is and the date. Hepatitis panel is pending. He has no new complaints today. 08/09/2020 Patient seems to be more clear headed today is now almost fully oriented. His biopsy results were pending during my encounter today. I did speak with Dr. Jurado later in the afternoon and she stated the patient has confirmed lung cancer and she plans to discuss this with the patient and his tomorrow to determine aggressive treatment with chemotherapy versus home with hospice. Patient cannot go to a rehab facility while also receiving chemotherapy. If he is too weak to go home with home health, Dr. Jurado believes he may be too weak to receive chemotherapy anyway. If that is the case, it may be best to send him to rehab for a few weeks in order to get him strong enough for chemotherapy. I will defer to her discussion with the family and the patient tomorrow. Likely can be discharged home with home health versus SNF tomorrow. 08/10/2020 Pt more alert and mentating better however he seems bit more congested today, white blood cells are trending upwards with a left shift. I obtained a PA/ lateral chest x-ray which showed possible right lower lobe pneumonia. I will start him on ceftriaxone/azithromycin given the aforementioned trends towards developing infection. Patient denies any other complaints that might localize an alternate source of infection. He will likely continue to have postobstructive pneumonia until his lung cancer is definitively treated. I spoke with Dr. Jurado and she is reportedly helping the patient and his family figure out a treatment course. Possible that the patient to get a dose of chemotherapy here and then be discharged to a rehab facility where he can get strong enough to have future doses of chemotherapy. Patient and his family are still deciding this. 08/11/2020 Patient still has some notable pulmonary congestion on exam. Antibiotics varghese nue for suspected pneumonia related to his lung cancer. White blood cell count is lower today. Potassium is normalized. I noted that recent CTPA did not show PE. Patient is persistently tachycardic in the 130s despite adding moderate dose beta-mynor. We will change ceftriaxone to cefepime for broader coverage. If he does not improve, we may need to add vancomycin for MRSA coverage. We will get a twelve-lead EKG. Recent echocardiogram did not show any systolic or diastolic dysfunction. Stopped IV fluids and added IV Lasix as patient may be getting volume overloaded. 08/12/2020 Patient seems to be wheezing quite a bit today. He already takes Trelegy chronically and has not missed any doses. I believe he is having a mild COPD exacerbation and I have started him on a burst course of prednisone for the next 5 days. I discussed the plan going forward Dr. Jurado today and she states the patient will start chemotherapy on Saturday after a port is placed on Saturday. He will get 3 doses of chemotherapy and then hopefully go to a rehab facility on Saturday. We will need case management to arrange this. 08/13/2020 Patient is still wheezing today I will start him on scheduled duo nebs. Steroids and antibiotics seem to have helped a little bit. Plan is to get a Mediport on Saturday and start chemotherapy on Saturday. Covid and other respiratory virus tests are negative. Patient has no new complaints today other than some continued upper respiratory congestion. 08/14/2020 Patient is notably more confused today. I believe this has a lot to do with significant CO2 retention given that we are currently pushing his supplemental oxygen beyond what is required to maintain adequate saturation in a COPD patient. I discussed with nursing that our goal is 89 to 92% otherwise wean r isk worsening the patient's confusion due to CO2 retention. Duo nebs are ordered, he continues on prednisone, and Trelegy is continued. Plan is for Mediport tomorrow. 08/15/2020 Patient still significantly confused and now has his Mediport placed. His heart rate is still elevated. We will get a repeat EKG to see if the rhythm has changed. Previous EKG was read as sinus tachycardia and I discussed it with Dr. Zuleta yesterday. We will give a trial of IV fluids to see if his heart rate response given he has had rather poor p.o. intake for the past several days. Hopefully, he is strong enough to tolerate the chemotherapy that is planned to start tomorrow. I am concerned that given the large burden of metastatic disease, he does not have a substantial response to chemotherapy with minimal systemic toxicity, we may need to reevaluate our plan for aggressive treatment and move towards a more comfort oriented approach with hospice. Reason For Visit: D 3 ETOP/ Physical Exam Vital Signs: Temp Pulse Resp BP Pulse Ox 97.3 F 123 H 26 H 99/69 L 94 08/15/20 16:06 08/15/20 16:06 08/15/20 16:06 08/15/20 16:06 08/15/20 16:06 Intake & Output 08/14/20 08/15/20 08/16/20 06:59 06:59 06:59 Intake Total 721 062 1720 Output Total 795 225 3 Balance -077 069 2787 Weight 90.1 kg 87.5 kg 87.5 kg Exam: General appearance: PRESENT: no acute distress, well-developed, well-nourished, chronically ill-appearing, still very confused and a bit somnolent at times Head exam: PRESENT: atraumatic, normocephalic Eye exam: PRESENT: conjunctiva pink. ABSENT: scleral icterus Mouth exam: PRESENT: moist Respiratory exam: PRESENT: upper respiratory congestion ABSENT: rales, wheezing Cardiovascular exam: PRESENT: RRR. ABSENT: diastolic murmur, rubs, systolic murmur GI/Abdominal exam: PRESENT: normal bowel sounds, soft. ABSENT: distended, gu arding, mass, organolmegaly, rebound, tenderness Neurological exam: PRESENT: alert, awake, oriented to person, but not oriented to anything else, notably more confused today Psychiatric exam: PRESENT: appropriate affect, normal mood Skin exam: PRESENT: dry, intact, warm Results Laboratory Results: 08/14/20 05:14 08/15/20 12:37 08/14/20 08/15/20 08/15/20 05:14 08:46 12:37 Sodium Cancelled 145.3 H Potassium Cancelled 4.3 Chloride Cancelled 114 H Carbon Dioxide Cancelled 22 Anion Gap Cancelled 9 BUN Cancelled 61 H Creatinine Cancelled 1.31 H Est GFR ( Amer) Cancelled > 60 Est GFR (Non-Af Amer) Cancelled Glucose Cancelled 96 Calcium Cancelled 10.6 H Magnesium 2.6 H Total Bilirubin Cancelled 2.2 H AST Cancelled 277 H Alkaline Phosphatase Cancelled 207 H Total Protein Cancelled 5.6 L Albumin Cancelled 2.8 L 08/05/20 08/05/20 08/11/20 08:50 08:50 14:26 Creatine Kinase 114 CK-MB (CK-2) Troponin I < 0.012 0.048 08/11/20 08/11/20 19:55 19:55 Creatine Kinase 84 CK-MB (CK-2) 0.78 Troponin I Impressions: Abdomen Ultrasound 08/05/20 09:51 IMPRESSION: Nodular appearing liver, multinodular cirrhosis versus liver metastatic disease Multiple stones in the gallbladder without sonographic signs of acute cholecystitis Echogenic atrophic right kidney Abdomen/Pelvis CT 08/05/20 11:50 IMPRESSION: 1. Suspicious 2.3 cm solid nodule in the right medial lower lobe. This may be amenable to percutaneous sampling. Additionally, there are 2 indeterminate subcentimeter solid nodules in the left lower lobe. Background moderate pulmonary emphysema. 2. Innumerable hepatic metastases. 3. Infrarenal aortic bi-iliac stent graft. 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 4. Multiple bilateral indeterminate renal cortical lesions. Moderately suspicious 9 mm lesion at the inferior pole right kidney. Renal protocol MRI or CT may provide additional information, however many of these are too small to adequately characterize and follow-up may be required. 5. Prostatomegaly. Chest CT 08/05/20 11:51 IMPRESSION: 1. Suspicious 2.3 cm solid nodule in the right medial lower lobe. This may be amenable to percutaneous sampling. Additionally, there are 2 indeterminate subcentimeter solid nodules in the left lower lobe. Background moderate pulmonary emphysema. 2. Innumerable hepatic metastases. 3. Infrarenal aortic bi-iliac stent graft. 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 4. Multiple bilateral indeterminate renal cortical lesions. Moderately suspicious 9 mm lesion at the inferior pole right kidney. Renal protocol MRI or CT may provide additional information, however many of these are too small to adequately characterize and follow-up may be required. 5. Prostatomegaly. Chest/Abdomen CTA 08/06/20 00:00 IMPRESSION: NO PULMONARY EMBOLI. Guidance Needle Placement CT 08/08/20 00:00 IMPRESSION: CT GUIDED TARGETED LIVER BIOPSY PERFORMED ABOVE. PATHOLOGY PENDING. NO IMMEDIATE COMPLICATIONS. 6 CORES WERE OBTAINED. Liver Biopsy CT 08/08/20 00:00 IMPRESSION: CT GUIDED TARGETED LIVER BIOPSY PERFORMED ABOVE. PATHOLOGY PENDING. NO IMMEDIATE COMPLICATIONS. 6 CORES WERE OBTAINED. Chest X-Ray 08/10/20 08:30 IMPRESSION: Findings concerning for right lower lobe pneumonia. Head CT 08/11/20 07:15 IMPRESSION: Subtle findings may represent a subacute left frontal lobe ischemic injury ; consider MR imaging for improved characterization. Ill-defined lucency of the right temporal fossa skull base is of uncertain etiology or significance. No discrete mass. Background of mild microvascular and involutional changes. EVIDENCE OF ACUTE STROKE: NO. Assessment and Plan - Diagnosis (1) COPD (chronic obstructive pulmonary disease) Is this a current diagnosis for this admission?: Yes (2) Dehydration Is this a current diagnosis for this admission?: Yes (3) Elevated liver enzymes Is this a current diagnosis for this admission?: Yes (4) HTN (hypertension) Is this a current diagnosis for this admission?: Yes (5) Lung nodule Is this a current diagnosis for this admission?: Yes (6) Metastasis to liver of unknown origin Is this a current diagnosis for this admission?: Yes (7) Near syncope Is this a current diagnosis for this admission?: Yes (8) Tachycardia Is this a current diagnosis for this admission?: Yes (9) Obstructive pneumonia Is this a current diagnosis for this admission?: Yes (10) COPD exacerbation Is this a current diagnosis for this admission?: Yes - Plan Summary Summary: Per Previous Physician: "History of Present Illness: LAUREN GOVEA is a 70 year old male who has history of hypertension, aortic aneurysm status post endovascular repair, COPD not on home oxygen. Patient is a former smoker. He does not drink. Patient was scheduled for CT scan outpatient earlier today. Before he underwent the scan, he apparently fell in the bathroom was some head trauma. Patient mentioned that his legs gave out on him. He denied any dizziness. Is not sure if he lost consciousness. Denies any seizure activity or incontinence. He mentioned that he has not been eating as usual for the past 5 days but was able to keep fluids in. Work-up in the emergency room was positive for lung mass with numerous liver metastases." COPD (chronic obstructive pulmonary disease) -with exacerbation -prednisone 40mg X5d -Q4h duonebs while awake -cont trelegy Supplemental O2 to maintain sat of 89-92% -bronchial hygiene -consider pumonary rehab referral at [facility] -no smoking Obstructive pneumonia Rising WBC, congested cough, known lung cancer Changed ceftriaxone to cefepime, continued azithromycin Respiratory culture not done Near syncope Per Previous Physician: "Ordered echocardiogram. Telemetry monitoring. Negative orthostatic vital signs. My impression is this is most likely just deconditioning and generalized muscle weakness from poor nutrition." Resolved Dehydrationresolved Continue IV fluids. Improved/resolved Elevated liver enzymes Per Previous Physician: "Most likely related to liver metastasis." Lung Adenocarcinoma -Initial Chest CT hghly concerning for malignancy. Status post biopsy. -Dr. Ruiz of oncology is following. -Pathology confirms neuroendocrine lung cancer -Dr. Jurado planning chemotherapy dose X3 starting 08/16 while inpatient then DC to snf -mediport placed on 08/15: gen surgery consulted Metastasis to liver of Lung Adenocarcinoma As above Persistent sinus tachycardia EKG discussed with health analytics consultant Possible volume overload causing pulmonary congestion and tachycardia, IV fluids stopped. Monitor on telemetry. Echocardiogram showed normal systolic and diastolic function, good EF, unable to assess diastolic function due to high heart rate Normal TSH. EKG Metoprolol started, cardiology started diltiazem IV Lasix stopped, IV fluids started for possible dehydration Cardiology consulted: Case discussed with Dr. Sandy COPD (chronic obstructive pulmonary disease) Continue home medications. 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 HTN (hypertension) Resume home medications. Monitor blood pressure. Acute hypoxemic respiratory failure. CTA of the chest negative for PE. - Time Time Spent with patient: 25-34 minutes Medications reviewed and adjusted accordingly: Yes Anticipated Discharge Disposition: Group Home Facility Anticipated Discharge Timeframe: within 72 hours - Inpatient Certification Based on my medical assessment, after consideration of the patient's comorbidities, presenting symptoms, or acuity I expect that the services needed warrant INPATIENT care.: Yes I certify that my determination is in accordance with my understanding of Medicare's requirements for reasonable and necessary INPATIENT services [42 CFR 412.3e].: Yes Medical Necessity: Significant Comorbidiites Make Outpatient Treatment Too Risky, Need Close Monitoring Due to Risk of Patient Decompensation, Need For IV Fluids, Need for IV Antibiotics, Risk of Complication if Not Cared For in Hospital, Risk of Diagnosis Which Will Require Inpatient Eval/Care/Monitoring
[2020-08-15] MEDS: RINGERS SOLUTION,LACTATED 1,000 ML IV PRN (22:31)
[2020-08-15] MEDS: DILTIAZEM HCL 180 MG CAPSULE.CR PO SCH (22:31)
[2020-08-16] MEDS ORDERED: CARBOPLATIN IV PRN (05:00)
[2020-08-16] MEDS ORDERED: NORMAL SALINE IV PRN ×2 (05:00)
[2020-08-16] MEDS ORDERED: PALONOSETRON 0.25 MG/5 ML VIAL IV PRN (05:00)
[2020-08-16] MEDS ORDERED: DEXAMETHASONE 10 MG in NS 50 ML IV PRN (05:00)
[2020-08-16] MEDS ORDERED: FOSAPREPITANT 150 MG in NS 150 ML IV PRN (05:00)
[2020-08-16] MEDS ORDERED: ETOPOSIDE IV PRN (05:00)
[2020-08-16] MEDS ORDERED: NORMAL SALINE 250 ML @ KVO IV PRN (05:00)
[2020-08-16 05:13] LABS: HEMATOCRIT 35.3 % (37.9-51.0); HEMOGLOBIN 11.8 g/dL (13.5-17.0); MEAN CORPUSCULAR HGB CONC 33.5 g/dL (32.0-36.0); MEAN CORPUSCULAR VOLUME 90 fl (80-97); RED BLOOD COUNT 3.93 10^6/uL (4.35-5.55); RED CELL DISTRIBUTION WIDTH 14.2 % (11.5-14.0); WHITE BLOOD COUNT 10.1 10^3/uL (4.0-10.5)
[2020-08-16 05:21] LABS: ANION GAP 8 (5-19); BLOOD UREA NITROGEN 60 mg/dL (7-20); CALCIUM 10.6 mg/dL (8.4-10.2); CARBON DIOXIDE 23 mmol/L (22-30); CHLORIDE 115 mmol/L (98-107); GLUCOSE 106 mg/dL (75-110); POTASSIUM 4.6 mmol/L (3.6-5.0)
[2020-08-16 05:45] LABS: ABSOLUTE LYMPHOCYTES# (MANUAL) 0.9 10^3/uL (0.5-4.7); ABSOLUTE MONOCYTES # (MANUAL) 0.2 10^3/uL (0.1-1.4); BAND NEUTROPHILS % (MANUAL) 1 % (3-5); BASOPHILS % (MANUAL) 0 % (0-2); EOSINOPHILS % (MANUAL) 0 % (0-6); LYMPHOCYTES % (MANUAL) 9 % (13-45); METAMYELOCYTES % (MANUAL) 1 % (0-1); MONOCYTES % (MANUAL) 2 % (3-13); SEGMENTED NEUTROPHILS % (MAN) 87 % (42-78); TOTAL CELLS COUNTED 100
[2020-08-16 06:03] LABS: TOXIC GRANULATION 1+
[2020-08-16 06:04] LABS: HYPOCHROMASIA SLIGHT
[2020-08-16 06:05] LABS: ANISOCYTOSIS SLIGHT; PLATELET COMMENT DECREASED; PLATELET COUNT 85 10^3/uL (150-450); POIKILOCYTOSIS SLIGHT; TEAR DROP CELLS SLIGHT
[2020-08-16] MEDS: IPRATROPIUM/ALBUTEROL 0.5-2.5 MG/3 ML AMPUL NEB SCH ×4 (08:17→19:38)
--- NOTE | 2020-08-16 08:31 | RADIOLOGY REPORT (SQ) ---
EXAM DESCRIPTION: FLUORO/CV PLACEMENT IMAGES COMPLETED DATE/TIME: 08/15/2020 10:44 am REASON FOR STUDY: PORTACATH PLCMT RIGHT SIDE ASSISTED WITH FLUORO IN OR R55 SYNCOPE AND COLLAPSE E0 7.9 DISORDER OF THYROID, UNSPECIFIED COMPARISON: None. FLUOROSCOPY TIME: 0.1 minutes. 3 images saved to PACS. TECHNIQUE: Intra-operative images acquired during surgical procedure to evaluate progress. NUMBER OF IMAGES: 3 images. LIMITATIONS: None. FINDINGS: Images of the chest acquired during port placement. IMPRESSION: IMAGE(S) OBTAINED DURING PROCEDURE. COMMENT: Quality ID [id number]: Final reports for procedures using fluoroscopy that document radiation exp osure indices, or exposure time and number of fluorographic images (if radiation exposure indices are not available) Please consult full operative report of the attending physician for description of the procedure. TECHNICAL DOCUMENTATION: JOB ID: [id number] 2010 [employer]- All Rights Reserved Reading location - IP/workstation name: [email or web address]
--- NOTE | 2020-08-16 08:34 | PDOC PROGRESS REPORT ---
Subjective Date:: 08/16/20 Subjective:: Patient is very confused and is not speaking very well this morning. He has not had his CPAP at night for the last 2 nights at least. Nurses are not sure why he has not been wearing this. I spoke with patient's and she states that his breathing was much better yesterday. He was trying to take off all his clothes, but otherwise, seemed improved and wanted to get up and out of bed. Reason For Visit: D 3 ETOP/ Physical Exam Vital Signs: Temp Pulse Resp BP Pulse Ox 97.6 F 116 H 18 118/66 94 08/16/20 00:03 08/16/20 07:00 08/16/20 00:03 08/16/20 00:03 08/16/20 00:45 Intake & Output 08/15/20 08/16/20 08/17/20 06:59 06:59 06:59 Intake Total 490 1550 Output Total 225 53 Balance 265 1497 Weight 87.5 kg 87.4 kg General appearance: PRESENT: mild distress Head exam: PRESENT: normocephalic Mouth exam: PRESENT: dry mucosa Teeth exam: PRESENT: poor dentation Respiratory exam: PRESENT: tachypnea GI/Abdominal exam: PRESENT: soft. ABSENT: tenderness Extremities exam: PRESENT: +1 edema Neurological exam: PRESENT: altered Skin exam: PRESENT: cyanosis Results Laboratory Results: 08/16/20 04:21 08/16/20 04:21 08/15/20 08/15/20 08/16/20 08:46 12:37 04:21 WBC 10.1 RBC 3.93 L Hgb 11.8 L Hct 35.3 L MCV 90 MCH 30.0 MCHC 33.5 RDW 14.2 H Plt Count 85 L Seg Neutrophils % Not Reportable Sodium Cancelled 145.3 H Potassium Cancelled 4.3 Chloride Cancelled 114 H Carbon Dioxide Cancelled 22 Anion Gap Cancelled 9 BUN Cancelled 61 H Creatinine Cancelled 1.31 H Est GFR ( Amer) Cancelled > 60 Est GFR (Non-Af Amer) Cancelled Glucose Cancelled 96 Calcium Cancelled 10.6 H Total Bilirubin Cancelled 2.2 H AST Cancelled 277 H Alkaline Phosphatase Cancelled 207 H Total Protein Cancelled 5.6 L Albumin Cancelled 2.8 L 08/16/20 04:21 WBC RBC Hgb Hct MCV MCH MCHC RDW Plt Count Seg Neutrophils % Sodium 146.2 H Potassium 4.6 Chloride 115 H Carbon Dioxide 23 Anion Gap 8 BUN 60 H Creatinine 1.40 H Est GFR ( Amer) > 60 Est GFR (Non-Af Amer) Glucose 106 Calcium 10.6 H Total Bilirubin AST Alkaline Phosphatase Total Protein Albumin 08/05/20 08/05/20 08/11/20 08:50 08:50 14:26 Creatine Kinase 114 CK-MB (CK-2) Troponin I < 0.012 0.048 08/11/20 08/11/20 19:55 19:55 Creatine Kinase 84 CK-MB (CK-2) 0.78 Troponin I Impressions: Abdomen Ultrasound 08/05/20 09:51 IMPRESSION: Nodular appearing liver, multinodular cirrhosis versus liver metastatic disease Multiple stones in the gallbladder without sonographic signs of acute cholecystitis Echogenic atrophic right kidney Abdomen/Pelvis CT 08/05/20 11:50 IMPRESSION: 1. Suspicious 2.3 cm solid nodule in the right medial lower lobe. This may be amenable to percutaneous sampling. Additionally, there are 2 indeterminate subcentimeter solid nodules in the left lower lobe. Background moderate pulmonary emphysema. 2. Innumerable hepatic metastases. 3. Infrarenal aortic bi-iliac stent graft. 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 4. Multiple bilateral indeterminate renal cortical lesions. Moderately suspicious 9 mm lesion at the inferior pole right kidney. Renal protocol MRI or CT may provide additional information, however many of these are too small to adequately characterize and follow-up may be required. 5. Prostatomegaly. Chest CT 08/05/20 11:51 IMPRESSION: 1. Suspicious 2.3 cm solid nodule in the right medial lower lobe. This may be amenable to percutaneous sampling. Additionally, there are 2 indeterminate subcentimeter solid nodules in the left lower lobe. Background moderate pulmo nary emphysema. 2. Innumerable hepatic metastases. 3. Infrarenal aortic bi-iliac stent graft. 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 4. Multiple bilateral indeterminate renal cortical lesions. Moderately suspicious 9 mm lesion at the inferior pole right kidney. Renal protocol MRI or CT may provide additional information, however many of these are too small to ad equately characterize and follow-up may be required. 5. Prostatomegaly. Chest/Abdomen CTA 08/06/20 00:00 IMPRESSION: NO PULMONARY EMBOLI. Guidance Needle Placement CT 08/08/20 00:00 IMPRESSION: CT GUIDED TARGETED LIVER BIOPSY PERFORMED ABOVE. PATHOLOGY PENDING. NO IMMEDIATE COMPLICATIONS. 6 CORES WERE OBTAINED. Liver Biopsy CT 08/08/20 00:00 IMPRESSION: CT GUIDED TARGETED LIVER BIOPSY PERFORMED ABOVE. PATHOLOGY PENDING. NO IMMEDIATE COMPLICATIONS. 6 CORES WERE OBTAINED. Chest X-Ray 08/10/20 08:30 IMPRESSION: Findings concerning for right lower lobe pneumonia. Head CT 08/11/20 07:15 IMPRESSION: Subtle findings may represent a subacute left frontal lobe ischemic injury ; consider MR imaging for improved characterization. Ill-defined lucency of the right temporal fossa skull base is of uncertain etiology or significance. No discrete mass. Background of mild microvascular and involutional changes. EVIDENCE OF ACUTE STROKE: NO. Assessment & Plan - Diagnosis (1) COPD (chronic obstructive pulmonary disease) Is this a current diagnosis for this admission?: Yes (2) Elevated liver enzymes Is this a current diagnosis for this admission?: Yes Plan: These have been stable since admission and are most likely due to the cancer in the liver. Hopefully, they will improve with treatment. (3) Lung nodule Is this a current diagnosis for this admission?: Yes (4) Lung cancer Is this a current diagnosis for this admission?: Yes Plan: Will start chemo today. I again discussed with patient and and both are in agreement. They understand that he may not survive, but that this is the only hope of improvement. Goal is to transfer to rehab on Saturday, after Neulasta injection for further rehab over the next month. His Cr is slightly higher today, but I believe this is secondary to dehydration. He will receive extra IV fluids with chemo, and I may give extra liter later today as well. - Time Time Spent with patient: 15-24 minutes
[2020-08-16] MEDS: PREDNISONE 20 MG TABLET PO SCH (10:39)
[2020-08-16] MEDS: METOPROLOL TARTRATE 100 MG TABLET PO SCH ×2 (10:39→21:46)
[2020-08-16] MEDS: ASPIRIN 325 MG TABLET PO SCH (10:39)
[2020-08-16] MEDS: CHOLECALCIFEROL (D3) 1,000 UNIT (25 MCG) TABLET PO SCH (10:40)
[2020-08-16] MEDS: FLUTICASONE/UMECLIDIN/VILANTER 100-62.5-25 MCG/DOSE IH SCH (10:40)
[2020-08-16] MEDS: METHIMAZOLE 5 MG TABLET PO SCH (10:40)
[2020-08-16] MEDS: ENOXAPARIN SODIUM INJ 40 MG/0.4 ML DISP.SYRIN SUBCUT SCH (10:40)
[2020-08-16] MEDS: CEFEPIME HCL 2 GM in DEXTROSE 5%-WATER 50 ML IV SCH (10:51)
[2020-08-16] MEDS: RINGERS SOLUTION,LACTATED 1,000 ML IV PRN ×2 (10:56→13:02)
[2020-08-16] MEDS ORDERED: NORMAL SALINE 1000 ML 1,000 ML IV ONE (11:24)
[2020-08-16 12:36] LABS: ARTERIAL BLOOD BASE EXCESS -1.5 mmol/L; ARTERIAL BLOOD H2CO3 1.04 mmol/L (1.05-1.35); ARTERIAL BLOOD HCO3 22.1 mmol/L (20-24); ARTERIAL BLOOD O2 SATURATION 93.3 % (94-98); ARTERIAL BLOOD PCO2 34.6 mmHg (35-45); ARTERIAL BLOOD PH 7.42 (7.35-7.45); ARTERIAL BLOOD PO2 64.7 mmHg (80-100); ARTERIAL BLOOD TOTAL CO2 23.2 mmol/L (23-27)
[2020-08-16 12:40] LABS: ARTERIAL BLOOD FIO2 3L
--- NOTE | 2020-08-16 15:21 | PDOC PROGRESS REPORT ---
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 Patient is a former smoker. He does not drink. Patient was scheduled for CT scan outpatient earlier today. Before he underwent the scan, he apparently fell in the bathroom was some head trauma. Patient mentioned that his legs gave out on him. He denied any dizziness. Is not sure if he lost consciousness. Denies any seizure activity or incontinence. He mentioned that he has not been eating as usual for the past 5 days but was able to keep fluids in. Work-up in the emergency room was positive for lung mass with numerous liver metastases." " 08/06/2020: Patient was seen and examined. He is stable on nasal cannula o xygen. Apparently he desaturated rapidly with minimal exertion. Slightly tachycardic. 08/07/2020: Patient was seen and examined. He is currently stable respiratory chase. CT angiogram negative for PE." 08/08/2020 Patient having liver biopsy reportedly. This may be easier to access tissue than a lung biopsy and probably safer as well. Patient is confused today but he is mostly oriented. He is unable to tell me the exact hospital he is in but otherwise knows who he is and the date. Hepatitis panel is pending. He has no new complaints today. 08/09/2020 Patient seems to be more clear headed today is now almost fully oriented. His biopsy results were pending during my encounter today. I did speak with Dr. Jurado later in the afternoon and she stated the patient has confirmed lung cancer and she plans to discuss this with the patient and his tomorrow to determine aggressive treatment with chemotherapy versus home with hospice. Patient cannot go to a rehab facility while also receiving chemotherapy. If he is too weak to go home with home health, Dr. Jurado believes he may be too weak to receive chemotherapy anyway. If that is the case, it may be best to send him to rehab for a few weeks in order to get him strong enough for chemotherapy. I will defer to her discussion with the family and the patient tomorrow. Likely can be discharged home with home health versus SNF tomorrow. 08/10/2020 Pt more alert and mentating better however he seems bit more congested today, wh ite blood cells are trending upwards with a left shift. I obtained a PA/lateral chest x-ray which showed possible right lower lobe pneumonia. I will start him on ceftriaxone/azithromycin given the aforementioned trends towards developing infection. Patient denies any other complaints that might localize an alternate source of infection. He will likely continue to have postobstructive pneumonia until his lung cancer is definitively treated. I spoke with Dr. Jurado and she is reportedly helping the patient and his family figure out a treatment course. Possible that the patient to get a dose of chemotherapy here and then be discharged to a rehab facility where he can get strong enough to have future doses of chemotherapy. Patient and his family are still deciding this. 08/11/2020 Patient still has some notable pulmonary congestion on exam. Antibiotics continue for suspected pneumonia related to his lung cancer. White blood cell count is lower today. Potassium is normalized. I noted that recent CTPA did not show PE. Patient is persistently tachycardic in the 130s despite adding moderate dose beta-mynor. We will change ceftriaxone to cefepime for broader coverage. If he does not improve, we may need to add vancomycin for MRSA coverage. We will get a twelve-lead EKG. Recent echocardiogram did not show any systolic or diastolic dysfunction. Stopped IV fluids and added IV Lasix as patient may be getting volume overloaded. 08/12/2020 Patient seems to be wheezing quite a bit today. He already takes Trelegy chronically and has not missed any doses. I believe he is having a mild COPD exacerbation and I have started him on a burst course of prednisone for the next 5 days. I discussed the plan going forward Dr. Jurado today and she states the patient will start chemotherapy on Saturday after a port is placed on Saturday. He will get 3 doses of chemotherapy and then hopefully go to a rehab facility on Saturday. We will need case management to arrange this. 08/13/2020 Patient is still wheezing today I will start him on scheduled duo nebs. Steroids and antibiotics seem to have helped a little bit. Plan is to get a Mediport on Saturday and start chemotherapy on Saturday. Covid and other respiratory virus tests are negative. Patient has no new complaints today other than some continued upper respiratory congestion. 08/14/2020 Patient is notably more confused today. I believe this has a lot to do with significant CO2 retention given that we are currently pushing his supplemental oxygen beyond what is required to maintain adequate saturation in a COPD patie nt. I discussed with nursing that our goal is 89 to 92% otherwise wean risk worsening the patient's confusion due to CO2 retention. Duo nebs are ordered, he continues on prednisone, and Trelegy is continued. Plan is for Mediport tomorrow. 08/15/2020 Patient still significantly confused and now has his Mediport placed. His heart rate is still elevated. We will get a repeat EKG to see if the rhythm has changed. Previous EKG was read as sinus tachycardia and I discussed it with Dr. Zuleta yesterday. We will give a trial of IV fluids to see if his heart rate response given he has had rather poor p.o. intake for the past several days. Hopefully, he is strong enough to tolerate the chemotherapy that is planned to start tomorrow. I am concerned that given the large burden of metastatic disease, he does not have a substantial response to chemotherapy with minimal systemic toxicity, we may need to reevaluate our plan for aggressive treatment and move towards a more comfort oriented approach with hospice." 08/16/20 Patient was seen and examined at bedside. He seems to be very drowsy. I was told by his nurse that he has not been wearing his CPAP machine the past 2 days and this was just started this morning. ABG pH 7.42, pCO2 34.6, pO2 64.7, bicarb 22. He is starting chemo today. With how is today i am worried on how chemo will affect him. Reason For Visit: NEAR SYNCOPE, STAGE 4 LUNG CANCER Physical Exam Vital Signs: Temp Pulse Resp BP Pulse Ox 97.5 F 115 H 18 117/61 94 08/16/20 11:28 08/16/20 14:00 08/16/20 12:18 08/16/20 11:28 08/16/20 12:18 Intake & Output 08/15/20 08/16/20 08/17/20 06:59 06:59 06:59 Intake Total 490 1550 3347.35 Output Total 225 53 Balance 265 1497 3347.35 Weight 87.5 kg 87.4 kg General appearance: PRESENT: cooperative, mild distress Head exam: PRESENT: atraumatic, normocephalic Eye exam: PRESENT: EOMI, PERRLA Ear exam: PRESENT: normal external ear exam Mouth exam: PRESENT: moist Neck exam: PRESENT: full ROM Respiratory exam: PRESENT: clear to auscultation nicole, symmetrical. ABSENT: rhonchi, wheezes Cardiovascular exam: PRESENT: RRR, +S1, +S2 Vascular exam: PRESENT: normal capillary refill GI/Abdominal exam: PRESENT: normal bowel sounds, soft. ABSENT: rebound, tenderness Extremities exam: PRESENT: full ROM Musculoskeletal exam: PRESENT: full ROM Neurological exam: PRESENT: altered - very drowsy. ABSENT: oriented to person, oriented to place, oriented to time, oriented to situation Psychiatric exam: PRESENT: normal mood Skin exam: PRESENT: normal color Results Laboratory Results: 08/16/20 04:21 08/16/20 04:21 08/16/20 08/16/20 08/16/20 04:21 04:21 12:20 WBC 10.1 RBC 3.93 L Hgb 11.8 L Hct 35.3 L MCV 90 MCH 30.0 MCHC 33.5 RDW 14.2 H Plt Count 85 L Seg Neutrophils % Not Reportable Carbonic Acid 1.04 L HCO3/H2CO3 Ratio 21:1 ABG pH 7.42 ABG pCO2 34.6 L ABG pO2 64.7 L ABG HCO3 22.1 ABG O2 Saturation 93.3 L ABG Base Excess -1.5 FiO2 3L Sodium 146.2 H Potassium 4.6 Chloride 115 H Carbon Dioxide 23 Anion Gap 8 BUN 60 H Creatinine 1.40 H Est GFR ( Amer) > 60 Glucose 106 Calcium 10.6 H 08/05/20 08/05/20 08/11/20 08:50 08:50 14:26 Creatine Kinase 114 CK-MB (CK-2) Troponin I < 0.012 0.048 08/11/20 08/11/20 19:55 19:55 Creatine Kinase 84 CK-MB (CK-2) 0.78 Troponin I Impressions: Abdomen Ultrasound 08/05/20 09:51 IMPRESSION: Nodular appearing liver, multinodular cirrhosis versus liver metastatic disease Multiple stones in the gallbladder without sonographic signs of acute cholecystitis Echogenic atrophic right kidney Abdomen/Pelvis CT 08/05/20 11:50 IMPRESSION: 1. Suspicious 2.3 cm solid nodule in the right medial lower lobe. This may be amenable to percutaneous sampling. Additionally, there are 2 indeterminate subcentimeter solid nodules in the left lower lobe. Background moderate pulmonary emphysema. 2. Innumerable hepatic metastases. 3. Infrarenal aortic bi-iliac stent graft. 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 4. Multiple bilateral indeterminate renal cortical lesions. Moderately suspicious 9 mm lesion at the inferior pole right kidney. Renal protocol MRI or CT may provide additional information, however many of these are too small to adequately characterize and follow-up may be required. 5. Prostatomegaly. Chest CT 08/05/20 11:51 IMPRESSION: 1. Suspicious 2.3 cm solid nodule in the right medial lower lobe. This may be amenable to percutaneous sampling. Additionally, there are 2 indeterminate subcentimeter solid nodules in the left lower lobe. Background moderate pulmonary emphysema. 2. Innumerable hepatic metastases. 3. Infrarenal aortic bi-iliac stent graft. 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 4. Multiple bilateral indeterminate renal cortical lesions. Moderately suspicious 9 mm lesion at the inferior pole right kidney. Renal protocol MRI or CT may provide additional information, however many of these are too small to adequately characterize and follow-up may be required. 5. Prostatomegaly. Chest/Abdomen CTA 08/06/20 00:00 IMPRESSION: NO PULMONARY EMBOLI. Guidance Needle Placement CT 08/08/20 00:00 IMPRESSION: CT GUIDED TARGETED LIVER BIOPSY PERFORMED ABOVE. PATHOLOGY PENDING. NO IMMEDIATE COMPLICATIONS. 6 CORES WERE OBTAINED. Liver Biopsy CT 08/08/20 00:00 IMPRESSION: CT GUIDED TARGETED LIVER BIOPSY PERFORMED ABOVE. PATHOLOGY PENDING. NO IMMEDIATE COMPLICATIONS. 6 CORES WERE OBTAINED. Chest X-Ray 08/10/20 08:30 IMPRESSION: Findings concerning for right lower lobe pneumonia. Head CT 08/11/20 07:15 IMPRESSION: Subtle findings may represent a subacute left frontal lobe ischemic injury ; consider MR imaging for improved characterization. Ill-defined lucency of the right temporal fossa skull base is of uncertain etiology or significance. No discrete mass. Background of mild microvascular and involutional changes. EVIDENCE OF ACUTE STROKE: NO. Guidance Fluoroscopy 08/15/20 00:00 IMPRESSION: IMAGE(S) OBTAINED DURING PROCEDURE. Assessment and Plan - Diagnosis (1) Acute metabolic encephalopathy Is this a current diagnosis for this admission?: Yes Plan: -very drowsy this morning - ABG did not show any CO2 retention, pO2 64 - CT head 08/11/20 showed so findings may represent a subacute left frontal lobe ischemic injury. Ill-defined lucency at the right temporal fossa skull base is of uncertain etiology or significance. No discrete mass. - awaiting ammonia - continue CPAP for now - (2) Metastatic lung cancer (metastasis from lung to other site) Qualifiers: Laterality: unspecified laterality Qualified Code(s): C34.90 - Malignant neoplasm of unspecified part of unspecified bronchus or lung Is this a current diagnosis for this admission?: Yes Plan: - Lung cancer with liver mets - starting chemo today per Dr. Ruiz (3) COPD (chronic obstructive pulmonary disease) Is this a current diagnosis for this admission?: Yes Plan: Not in exacerbation. Continue home medications. (4) Obstructive pneumonia Is this a current diagnosis for this admission?: Yes Plan: - on azithro/cefepime about D5 - WBC 10.1 - no blood culture and sputum culture - I doubt if anything is going to grow anything now that he has received a few days of abx (5) Elevated liver enzymes Is this a current diagnosis for this admission?: Yes Plan: - AST 200>277, ALT 141>133, ALP 164>207 - hepatitis panel negative - Most likely related to liver metastasis. - will CTM (6) HTN (hypertension) Qualifiers: Hypertension type: essential hypertension Qualified Code(s): I10 - Essential (primary) hypertension Is this a current diagnosis for this admission?: Yes Plan: on cardizem and metoprolol. (7) Tachycardia Is this a current diagnosis for this admission?: Yes Plan: Sinus tachycardia. - on cardizem and metoprolol - cardio following (8) Elevated d-dimer Is this a current diagnosis for this admission?: Yes Plan: - D dimer 8.49 - CTA no PE - on lovenox 40 daily - Time Time Spent with patient: 15-24 minutes Medications reviewed and adjusted accordingly: Yes Anticipated Discharge Disposition: Home with Home Health Anticipated Discharge Timeframe: TBD
[2020-08-16] MEDS: CEFEPIME 1 GM/D5W RTU 1 GM/50 ML RTUPB IV SCH (17:14)
--- NOTE | 2020-08-16 17:58 | EKG REPORT ---
SEVERITY:- ABNORMAL ECG - SINUS TACHYCARDIA LEFT ANTERIOR FASCICULAR BLOCK LOW VOLTAGE IN FRONTAL LEADS BORDERLINE T ABNORMALITIES, ANT-LAT LEADS : Confirmed by: Nasir Lorenzo 16-Aug-2020 17:58:27
[2020-08-16] MEDS: DILTIAZEM HCL 180 MG CAPSULE.CR PO SCH (21:46)
[2020-08-17] MEDS ORDERED: NORMAL SALINE 250 ML IV PRN (05:00)
[2020-08-17] MEDS ORDERED: NORMAL SALINE IV PRN (05:00)
[2020-08-17] MEDS ORDERED: DEXAMETHASONE SOD PHOSPHATE 10 MG in NORMAL SALINE 100 ML IV PRN (05:00)
[2020-08-17] MEDS ORDERED: ETOPOSIDE IV PRN (05:00)
[2020-08-17] MEDS: CEFEPIME 1 GM/D5W RTU 1 GM/50 ML RTUPB IV SCH ×2 (05:30→17:21)
[2020-08-17] MEDS: IPRATROPIUM/ALBUTEROL 0.5-2.5 MG/3 ML AMPUL NEB SCH ×4 (07:46→21:17)
--- NOTE | 2020-08-17 08:04 | PDOC PROGRESS REPORT ---
Subjective Date:: 08/17/20 Subjective:: Patient has his CPAP machine on this morning. His eyes are open. However, he i s not responding to me. Nurses report he did well with chemo yesterday. However, he has been much less responsive. Not eating or drinking anything in the past 24-48 hours. He is having difficulty repositioning himself and has not been strong enough to get out of bed to chair. No skin issues, but skin care is continuing. Reason For Visit: NEAR SYNCOPE, STAGE 4 LUNG CANCER Physical Exam Vital Signs: Temp Pulse Resp BP Pulse Ox 98.1 F 118 H 18 118/63 91 L 08/17/20 02:54 08/17/20 02:54 08/17/20 02:54 08/17/20 02:54 08/17/20 02:54 Intake & Output 08/16/20 08/17/20 08/18/20 06:59 06:59 06:59 Intake Total 1550 3497.35 Output Total 53 1 Balance 1497 3496.35 Weight 87.4 kg 90.2 kg General appearance: PRESENT: no acute distress Head exam: PRESENT: normocephalic Mouth exam: PRESENT: dry mucosa Respiratory exam: PRESENT: clear to auscultation nicole, unlabored Cardiovascular exam: PRESENT: RRR, tachycardia GI/Abdominal exam: PRESENT: normal bowel sounds, soft Extremities exam: ABSENT: pedal edema Neurological exam: PRESENT: altered Skin exam: PRESENT: normal color Results Laboratory Results: 08/16/20 04:21 08/16/20 04:21 08/16/20 08/16/20 12:20 15:20 Carbonic Acid 1.04 L HCO3/H2CO3 Ratio 21:1 ABG pH 7.42 ABG pCO2 34.6 L ABG pO2 64.7 L ABG HCO3 22.1 ABG O2 Saturation 93.3 L ABG Base Excess -1.5 FiO2 3L Ammonia 21.2 08/05/20 08/05/20 08/11/20 08:50 08:50 14:26 Creatine Kinase 114 CK-MB (CK-2) Troponin I < 0.012 0.048 08/11/20 08/11/20 19:55 19:55 Creatine Kinase 84 CK-MB (CK-2) 0.78 Troponin I Impressions: Abdomen Ultrasound 08/05/20 09:51 IMPRESSION: Nodular appearing liver, multinodular cirrhosis versus liver metastatic disease Multiple stones in the gallbladder without sonographic signs of acute cholecystitis Echogenic atrophic right kidney Abdomen/Pelvis CT 08/05/20 11:50 IMPRESSION: 1. Suspicious 2.3 cm solid nodule in the right medial lower lobe. This may be amenable to percutaneous sampling. Additionally, there are 2 indeterminate subcentimeter solid nodules in the left lower lobe. Background moderate pulmonary emphysema. 2. Innumerable hepatic metastases. 3. Infrarenal aortic bi-iliac stent graft. 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 4. Multiple bilateral indeterminate renal cortical lesions. Moderately suspicious 9 mm lesion at the inferior pole right kidney. Renal protocol MRI or CT may provide additional information, however many of these are too small to adequately characterize and follow-up may be required. 5. Prostatomegaly. Chest CT 08/05/20 11:51 IMPRESSION: 1. Suspicious 2.3 cm solid nodule in the right medial lower lobe. This may be amenable to percutaneous sampling. Additionally, there are 2 indeterminate subcentimeter solid nodules in the left lower lobe. Background moderate pulmonary emphysema. 2. Innumerable hepatic metastases. 3. Infrarenal aortic bi-iliac stent graft. 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 4. Multiple bilateral indeterminate renal cortical lesions. Moderately suspicious 9 mm lesion at the inferior pole right kidney. Renal protocol MRI or CT may provide additional information, however many of these are too small to adequately characterize and follow-up may be required. 5. Prostatomegaly. Chest/Abdomen CTA 08/06/20 00:00 IMPRESSION: NO PULMONARY EMBOLI. Guidance Needle Placement CT 08/08/20 00:00 IMPRESSION: CT GUIDED TARGETED LIVER BIOPSY PERFORMED ABOVE. PATHOLOGY PENDING. NO IMMEDIATE COMPLICATIONS. 6 CORES WERE OBTAINED. Liver Biopsy CT 08/08/20 00:00 IMPRESSION: CT GUIDED TARGETED LIVER BIOPSY PERFORMED ABOVE. PATHOLOGY PENDING. NO IMMEDIATE COMPLICATIONS. 6 CORES WERE OBTAINED. Chest X-Ray 08/10/20 08:30 IMPRESSION: Findings concerning for right lower lobe pneumonia. Head CT 08/11/20 07:15 IMPRESSION: Subtle findings may represent a subacute left frontal lobe ischemic injury ; consider MR imaging for improved characterization. Ill-defined lucency of the right temporal fossa skull base is of uncertain etiology or significance. No discrete mass. Background of mild microvascular and involutional changes. EVIDENCE OF ACUTE STROKE: NO. Guidance Fluoroscopy 08/15/20 00:00 IMPRESSION: IMAGE(S) OBTAINED DURING PROCEDURE. Assessment & Plan - Diagnosis (1) COPD (chronic obstructive pulmonary disease) Is this a current diagnosis for this admission?: Yes (2) Elevated liver enzymes Is this a current diagnosis for this admission?: Yes (3) Lung nodule Is this a current diagnosis for this admission?: Yes (4) Lung cancer Is this a current diagnosis for this admission?: Yes Plan: Today is cycle #1 Day #2 of carboplatin/etoposide for neuroendocrine tumor of the lungs, metastatic to the liver. Should receive neulasta on Day 4 then hopefully, to rehab for strength training. No evidence of fever. Cr will be repeated tomorrow. Consider more IV fluids, if still not eating or drinking well. He should continue to work with PT/OT while in house. - Time Time Spent with patient: Less than 15 minutes
[2020-08-17] MEDS: METHIMAZOLE 5 MG TABLET PO SCH (09:47)
[2020-08-17] MEDS: FLUTICASONE/UMECLIDIN/VILANTER 100-62.5-25 MCG/DOSE IH SCH (09:47)
[2020-08-17] MEDS: ASPIRIN 325 MG TABLET PO SCH (09:47)
[2020-08-17] MEDS: METOPROLOL TARTRATE 100 MG TABLET PO SCH ×2 (09:47→21:01)
[2020-08-17] MEDS: CHOLECALCIFEROL (D3) 1,000 UNIT (25 MCG) TABLET PO SCH (09:48)
[2020-08-17] MEDS: ENOXAPARIN SODIUM INJ 40 MG/0.4 ML DISP.SYRIN SUBCUT SCH (09:48)
[2020-08-17] MEDS: DEXTROSE 5%-LACTATED RINGERS 1,000 ML IV PRN (09:53)
[2020-08-17] MEDS: DILTIAZEM HCL 180 MG CAPSULE.CR PO SCH (21:01)
--- NOTE | 2020-08-17 21:16 | ADVANCED CARE ---
- Diagnosis (1) Acute metabolic encephalopathy Diagnosis Current: Yes (2) Metastatic lung cancer (metastasis from lung to other site) Diagnosis Current: Yes (3) COPD (chronic obstructive pulmonary disease) Diagnosis Current: Yes (4) Obstructive pneumonia Diagnosis Current: Yes (5) Elevated liver enzymes Diagnosis Current: Yes (6) HTN (hypertension) Diagnosis Current: Yes (7) Tachycardia Diagnosis Current: Yes (8) Elevated d-dimer Diagnosis Current: Yes Attendance: Discussion made over the phone with the patients Sharonda. Resuscitation Status: Full Code Discussion: I called patient's Sharonda to discuss her 's current medical state. I informed her that he started chemo yesterday and even before starting chemo he is already weak and debilitated and I told her that chemo will likely aggravate if not worsen his medical condition the next few days before he gets better status if he will respond to chemo. I asked her what her expectations are with regards to his chemo and she basically said that she hopes it will help him live longer. I explained to her that based on how he has been doing the past couple of days I am worried that the chemo will make him worse rather than help him and I expressed my doubts and reservation that he will be able to participate in rehab with the way he is right now. The said she understa nds that there is no cure to his cancer but she is hopeful that it will help him live longer. I also addressed his CODE STATUS with Sharonda and she stated that she wants him to remain full code. I explained to her that we usually do CPR for about 30 minutes then if patient does not respond we stop it most of the time after that. She said that she would like us to try at least for 30 minutes to do the CPR. Patient is very weak and as far as I know has not appointed any healthcare power of managing attorney. Care Planning Goals: CODE STATUS discussion and possible palliative/hospice options. Time Spent: More than 16 minutes less than 30 minutes
--- NOTE | 2020-08-17 21:28 | PDOC PROGRESS REPORT ---
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 Patient is a former smoker. He does not drink. Patient was scheduled for CT scan outpatient earlier today. Before he underwent the scan, he apparently fell in the bathroom was some head trauma. Patient mentioned that his legs gave out on him. He denied any dizziness. Is not sure if he lost consciousness. Denies any seizure activity or incontinence. He mentioned that he has not been eating as usual for the past 5 days but was able to keep fluids in. Work-up in the emergency room was positive for lung mass with numerous liver metastases." " 08/06/2020: Patient was seen and examined. He is stable on nasal cannula o xygen. Apparently he desaturated rapidly with minimal exertion. Slightly tachycardic. 08/07/2020: Patient was seen and examined. He is currently stable respiratory chase. CT angiogram negative for PE." 08/08/2020 Patient having liver biopsy reportedly. This may be easier to access tissue than a lung biopsy and probably safer as well. Patient is confused today but he is mostly oriented. He is unable to tell me the exact hospital he is in but otherwise knows who he is and the date. Hepatitis panel is pending. He has no new complaints today. 08/09/2020 Patient seems to be more clear headed today is now almost fully oriented. His biopsy results were pending during my encounter today. I did speak with Dr. Jurado later in the afternoon and she stated the patient has confirmed lung cancer and she plans to discuss this with the patient and his tomorrow to determine aggressive treatment with chemotherapy versus home with hospice. Patient cannot go to a rehab facility while also receiving chemotherapy. If he is too weak to go home with home health, Dr. Jurado believes he may be too weak to receive chemotherapy anyway. If that is the case, it may be best to send him to rehab for a few weeks in order to get him strong enough for chemotherapy. I will defer to her discussion with the family and the patient tomorrow. Likely can be discharged home with home health versus SNF tomorrow. 08/10/2020 Pt more alert and mentating better however he seems bit more congested today, wh ite blood cells are trending upwards with a left shift. I obtained a PA/lateral chest x-ray which showed possible right lower lobe pneumonia. I will start him on ceftriaxone/azithromycin given the aforementioned trends towards developing infection. Patient denies any other complaints that might localize an alternate source of infection. He will likely continue to have postobstructive pneumonia until his lung cancer is definitively treated. I spoke with Dr. Jurado and she is reportedly helping the patient and his family figure out a treatment course. Possible that the patient to get a dose of chemotherapy here and then be discharged to a rehab facility where he can get strong enough to have future doses of chemotherapy. Patient and his family are still deciding this. 08/11/2020 Patient still has some notable pulmonary congestion on exam. Antibiotics continue for suspected pneumonia related to his lung cancer. White blood cell count is lower today. Potassium is normalized. I noted that recent CTPA did not show PE. Patient is persistently tachycardic in the 130s despite adding moderate dose beta-mynor. We will change ceftriaxone to cefepime for broader coverage. If he does not improve, we may need to add vancomycin for MRSA coverage. We will get a twelve-lead EKG. Recent echocardiogram did not show any systolic or diastolic dysfunction. Stopped IV fluids and added IV Lasix as patient may be getting volume overloaded. 08/12/2020 Patient seems to be wheezing quite a bit today. He already takes Trelegy chronically and has not missed any doses. I believe he is having a mild COPD exacerbation and I have started him on a burst course of prednisone for the next 5 days. I discussed the plan going forward Dr. Jurado today and she states the patient will start chemotherapy on Saturday after a port is placed on Saturday. He will get 3 doses of chemotherapy and then hopefully go to a rehab facility on Saturday. We will need case management to arrange this. 08/13/2020 Patient is still wheezing today I will start him on scheduled duo nebs. Steroids and antibiotics seem to have helped a little bit. Plan is to get a Mediport on Saturday and start chemotherapy on Saturday. Covid and other respiratory virus tests are negative. Patient has no new complaints today other than some continued upper respiratory congestion. 08/14/2020 Patient is notably more confused today. I believe this has a lot to do with significant CO2 retention given that we are currently pushing his supplemental oxygen beyond what is required to maintain adequate saturation in a COPD patie nt. I discussed with nursing that our goal is 89 to 92% otherwise wean risk worsening the patient's confusion due to CO2 retention. Duo nebs are ordered, he continues on prednisone, and Trelegy is continued. Plan is for Mediport tomorrow. 08/15/2020 Patient still significantly confused and now has his Mediport placed. His heart rate is still elevated. We will get a repeat EKG to see if the rhythm has changed. Previous EKG was read as sinus tachycardia and I discussed it with Dr. Zuleta yesterday. We will give a trial of IV fluids to see if his heart rate response given he has had rather poor p.o. intake for the past several days. Hopefully, he is strong enough to tolerate the chemotherapy that is planned to start tomorrow. I am concerned that given the large burden of metastatic disease, he does not have a substantial response to chemotherapy with minimal systemic toxicity, we may need to reevaluate our plan for aggressive treatment and move towards a more comfort oriented approach with hospice." 08/16/20 Patient was seen and examined at bedside. He seems to be very drowsy. I was told by his nurse that he has not been wearing his CPAP machine the past 2 days and this was just started this morning. ABG pH 7.42, pCO2 34.6, pO2 64.7, bicarb 22. He is starting chemo today. With how is today i am worried on how chemo will affect him. 08/17/20 Patient was seen and examined at bedside. He is on his BiPAP/CPAP machine and seems to be marginally more alert today however he is still very weak looking and is barely able to answer my questions. He has been unable to eat anything for the past 2 days and I have spoken to his surrogate decision maker/ Sharonda possible Dobbhoff tube placement for feeding and she agreed to this. He is referred to for ACP note regarding discussion about his CODE STATUS. Reason For Visit: NEAR SYNCOPE, STAGE 4 LUNG CANCER Physical Exam Vital Signs: Temp Pulse Resp BP Pulse Ox 97.5 F 120 H 18 123/62 91 L 08/17/20 20:30 08/17/20 19:26 08/17/20 19:26 08/17/20 19:26 08/17/20 19:26 Intake & Output 08/16/20 08/17/20 08/18/20 06:59 06:59 06:59 Intake Total 1550 3497.35 1762.85 Output Total 53 1 Balance 1497 3496.35 1762.85 Weight 87.4 kg 90.2 kg 90.9 kg General appearance: PRESENT: cooperative, mild distress Head exam: PRESENT: atraumatic, normocephalic Eye exam: PRESENT: EOMI, PERRLA Mouth exam: PRESENT: moist Neck exam: PRESENT: full ROM Respiratory exam: PRESENT: clear to auscultation nicole, symmetrical, unlabored Cardiovascular exam: PRESENT: RRR, +S1, +S2 GI/Abdominal exam: PRESENT: normal bowel sounds, soft. ABSENT: rebound, tenderness Extremities exam: ABSENT: tenderness, +2 edema Neurological exam: PRESENT: awake. ABSENT: oriented to person, oriented to place, oriented to time, oriented to situation Skin exam: PRESENT: normal color Results Laboratory Results: 08/16/20 04:21 08/16/20 04:21 08/05/20 08/05/20 08/11/20 08:50 08:50 14:26 Creatine Kinase 114 CK-MB (CK-2) Troponin I < 0.012 0.048 08/11/20 08/11/20 19:55 19:55 Creatine Kinase 84 CK-MB (CK-2) 0.78 Troponin I Impressions: Abdomen Ultrasound 08/05/20 09:51 IMPRESSION: Nodular appearing liver, multinodular cirrhosis versus liver metastatic disease Multiple stones in the gallbladder without sonographic signs of acute cholecysti tis Echogenic atrophic right kidney Abdomen/Pelvis CT 08/05/20 11:50 IMPRESSION: 1. Suspicious 2.3 cm solid nodule in the right medial lower lobe. This may be amenable to percutaneous sampling. Additionally, there are 2 indeterminate subcentimeter solid nodules in the left lower lobe. Background moderate pulmonary emphysema. 2. Innumerable hepatic metastases. 3. Infrarenal aortic bi-iliac stent graft. 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 4. Multiple bilateral indeterminate renal cortical lesions. Moderately suspicious 9 mm lesion at the inferior pole right kidney. Renal protocol MRI or CT may provide additional information, however many of these are too small to adequately characterize and follow-up may be required. 5. Prostatomegaly. Chest CT 08/05/20 11:51 IMPRESSION: 1. Suspicious 2.3 cm solid nodule in the right medial lower lobe. This may be amenable to percutaneous sampling. Additionally, there are 2 indeterminate subcentimeter solid nodules in the left lower lobe. Background moderate pulmonary emphysema. 2. Innumerable hepatic metastases. 3. Infrarenal aortic bi-iliac stent graft. 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 4. Multiple bilateral indeterminate renal cortical lesions. Moderately suspicious 9 mm lesion at the inferior pole right kidney. Renal protocol MRI or CT may provide additional information, however many of these are too small to adequately characterize and follow-up may be required. 5. Prostatomegaly. Chest/Abdomen CTA 08/06/20 00:00 IMPRESSION: NO PULMONARY EMBOLI. Guidance Needle Placement CT 08/08/20 00:00 IMPRESSION: CT GUIDED TARGETED LIVER BIOPSY PERFORMED ABOVE. PATHOLOGY PENDING. NO IMMEDIATE COMPLICATIONS. 6 CORES WERE OBTAINED. Liver Biopsy CT 08/08/20 00:00 IMPRESSION: CT GUIDED TARGETED LIVER BIOPSY PERFORMED ABOVE. PATHOLOGY PENDING. NO IMMEDIATE COMPLICATIONS. 6 CORES WERE OBTAINED. Chest X-Ray 08/10/20 08:30 IMPRESSION: Findings concerning for right lower lobe pneumonia. Head CT 08/11/20 07:15 IMPRESSION: Subtle findings may represent a subacute left frontal lobe ischemic injury ; consider MR imaging for improved characterization. Ill-defined lucency of the right temporal fossa skull base is of uncertain etiology or significance. No discrete mass. Background of mild microvascular and involutional changes. EVIDENCE OF ACUTE STROKE: NO. Guidance Fluoroscopy 08/15/20 00:00 IMPRESSION: IMAGE(S) OBTAINED DURING PROCEDURE. Assessment and Plan - Diagnosis (1) Acute metabolic encephalopathy Is this a current diagnosis for this admission?: Yes Plan: -still very drowsy - ABG did not show any CO2 retention, pO2 64 - CT head 08/11/20 showed so findings may represent a subacute left frontal lobe ischemic injury. Ill-defined lucency at the right temporal fossa skull base is of uncertain etiology or significance. No discrete mass. - awaiting MRI with contrast to rule out metastatis to brain - (2) Metastatic lung cancer (metastasis from lung to other site) Qualifiers: Laterality: unspecified laterality Qualified Code(s): C34.90 - Malignant neoplasm of unspecified part of unspecified bronchus or lung Is this a current diagnosis for this admission?: Yes Plan: - Lung cancer with liver mets - starting chemo today per Dr. Ruiz -Please refer to ACP note regarding full discussion about his medical progress so far. In summary I am worried that he is not going to do well post chemo he already is very debilitated even before starting chemo. Unsure if he will be able to participate with physical therapy in a rehab setting by Saturday. -Heme-onc following (3) COPD (chronic obstructive pulmonary disease) Is this a current diagnosis for this admission?: Yes Plan: Not in exacerbation. Continue home medications. (4) Obstructive pneumonia Is this a current diagnosis for this admission?: Yes Plan: - on azithro/cefepime about D6 - WBC 10.1 - no blood culture and sputum culture - I doubt if anything is going to grow anything now that he has received a few days of abx (5) Elevated liver enzymes Is this a current diagnosis for this admission?: Yes Plan: - AST 200>277, ALT 141>133, ALP 164>207 - hepatitis panel negative - Most likely related to liver metastasis. - will CTM (6) HTN (hypertension) Qualifiers: Hypertension type: essential hypertension Qualified Code(s): I10 - Essential (primary) hypertension Is this a current diagnosis for this admission?: Yes Plan: on cardizem and metoprolol. (7) Tachycardia Is this a current diagnosis for this admission?: Yes Plan: Sinus tachycardia. - on cardizem and metoprolol - cardio following (8) Elevated d-dimer Is this a current diagnosis for this admission?: Yes Plan: - D dimer 8.49 - CTA no PE - on lovenox 40 daily (9) Malnutrition Qualifiers: Malnutrition type: protein-calorie malnutrition Protein-calorie malnutrition severity: unspecified severity Qualified Code(s): E46 - Unspecified protein-calorie malnutrition Is this a current diagnosis for this admission?: Yes Plan: Patient has been unable to eat the past 2 days -We will need Dobbhoff tube and enteral feeding - Time Time Spent with patient: 25-34 minutes Anticipated Discharge Disposition: Home with Home Health Anticipated Discharge Timeframe: tbd
[2020-08-18] MEDS: DEXTROSE 5%-LACTATED RINGERS 1,000 ML IV PRN (01:50)
[2020-08-18] MEDS ORDERED: NORMAL SALINE IV PRN (05:00)
[2020-08-18] MEDS ORDERED: ETOPOSIDE IV PRN (05:00)
[2020-08-18] MEDS ORDERED: NORMAL SALINE 250 ML IV PRN (05:00)
[2020-08-18] MEDS ORDERED: DEXAMETHASONE SOD PHOSPHATE 10 MG in NORMAL SALINE 100 ML IV PRN (05:00)
[2020-08-18] MEDS: CEFEPIME 1 GM/D5W RTU 1 GM/50 ML RTUPB IV SCH ×2 (05:16→18:15)
--- NOTE | 2020-08-18 07:25 | PDOC PROGRESS REPORT ---
Subjective Date:: 08/18/20 Subjective:: Patient sleeping, but arouses to touch and voice. Non-responsive other than to open eyes. Nurses report that he is not eating or drinking. No other concerns. Reason For Visit: NEAR SYNCOPE, STAGE 4 LUNG CANCER Physical Exam Vital Signs: Temp Pulse Resp BP Pulse Ox 97.9 F 125 H 20 110/66 92 08/18/20 03:39 08/18/20 03:39 08/18/20 03:39 08/18/20 03:39 08/18/20 03:39 Intake & Output 08/17/20 08/18/20 08/19/20 06:59 06:59 06:59 Intake Total 3497.35 2862.85 Output Total 1 Balance 3496.35 2862.85 Weight 90.2 kg 95.2 kg General appearance: PRESENT: no acute distress, thin Head exam: PRESENT: normocephalic Mouth exam: PRESENT: dry mucosa Respiratory exam: PRESENT: unlabored, wheezes Cardiovascular exam: PRESENT: RRR, tachycardia GI/Abdominal exam: PRESENT: soft Extremities exam: ABSENT: pedal edema Neurological exam: PRESENT: altered Skin exam: PRESENT: normal color Results Laboratory Results: 08/16/20 04:21 08/16/20 04:21 08/05/20 08/05/20 08/11/20 08:50 08:50 14:26 Creatine Kinase 114 CK-MB (CK-2) Troponin I < 0.012 0.048 08/11/20 08/11/20 19:55 19:55 Creatine Kinase 84 CK-MB (CK-2) 0.78 Troponin I Impressions: Abdomen Ultrasound 08/05/20 09:51 IMPRESSION: Nodular appearing liver, multinodular cirrhosis versus liver metastatic disease Multiple stones in the gallbladder without sonographic signs of acute cholecystitis Echogenic atrophic right kidney Abdomen/Pelvis CT 08/05/20 11:50 IMPRESSION: 1. Suspicious 2.3 cm solid nodule in the right medial lower lobe. This may be amenable to percutaneous sampling. Additionally, there are 2 indeterminate subc entimeter solid nodules in the left lower lobe. Background moderate pulmonary emphysema. 2. Innumerable hepatic metastases. 3. Infrarenal aortic bi-iliac stent graft. 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 4. Multiple bilateral indeterminate renal cortical lesions. Moderately suspicious 9 mm lesion at the inferior pole right kidney. Renal protocol MRI or CT may provide additional information, however many of these are too small to adequately characterize and follow-up may be required. 5. Prostatomegaly. Chest CT 08/05/20 11:51 IMPRESSION: 1. Suspicious 2.3 cm solid nodule in the right medial lower lobe. This may be amenable to percutaneous sampling. Additionally, there are 2 indeterminate subcentimeter solid nodules in the left lower lobe. Background moderate pulmonary emphysema. 2. Innumerable hepatic metastases. 3. Infrarenal aortic bi-iliac stent graft. 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 4. Multiple bilateral indeterminate renal cortical lesions. Moderately suspicious 9 mm lesion at the inferior pole right kidney. Renal protocol MRI or CT may provide additional information, however many of these are too small to adequately characterize and follow-up may be required. 5. Prostatomegaly. Chest/Abdomen CTA 08/06/20 00:00 IMPRESSION: NO PULMONARY EMBOLI. Guidance Needle Placement CT 08/08/20 00:00 IMPRESSION: CT GUIDED TARGETED LIVER BIOPSY PERFORMED ABOVE. PATHOLOGY PENDING. NO IMMEDIATE COMPLICATIONS. 6 CORES WERE OBTAINED. Liver Biopsy CT 08/08/20 00:00 IMPRESSION: CT GUIDED TARGETED LIVER BIOPSY PERFORMED ABOVE. PATHOLOGY PENDING. NO IMMEDIATE COMPLICATIONS. 6 CORES WERE OBTAINED. Chest X-Ray 08/10/20 08:30 IMPRESSION: Findings concerning for right lower lobe pneumonia. Head CT 08/11/20 07:15 IMPRESSION: Subtle findings may represent a subacute left frontal lobe ischemic injury ; consider MR imaging for improved characterization. Ill-defined lucency of the right temporal fossa skull base is of uncertain etiology or significance. No discrete mass. Background of mild microvascular and involutional changes. EVIDENCE OF ACUTE STROKE: NO. Guidance Fluoroscopy 08/15/20 00:00 IMPRESSION: IMAGE(S) OBTAINED DURING PROCEDURE. Assessment & Plan - Diagnosis (1) COPD (chronic obstructive pulmonary disease) Is this a current diagnosis for this admission?: Yes Plan: Not sure why he is on cefapime. I will stop this. (2) Elevated liver enzymes Is this a current diagnosis for this admission?: Yes (3) Lung nodule Is this a current diagnosis for this admission?: Yes (4) Lung cancer Is this a current diagnosis for this admission?: Yes Plan: Day 3 of cycle #1 carboplatin/etoposide. Plan for Neulasta tomorrow then no further chemo planned for 28 days. Need to ambulate and get some nutrition. Await today's labs. I will check ammonia level. - Time Time Spent with patient: Less than 15 minutes
[2020-08-18] MEDS: IPRATROPIUM/ALBUTEROL 0.5-2.5 MG/3 ML AMPUL NEB SCH ×3 (07:51→15:53)
[2020-08-18] MEDS: METOPROLOL TARTRATE 100 MG TABLET PO SCH ×2 (10:41→11:47)
[2020-08-18] MEDS: CHOLECALCIFEROL (D3) 1,000 UNIT (25 MCG) TABLET PO SCH ×2 (10:41→11:48)
[2020-08-18] MEDS: FLUTICASONE/UMECLIDIN/VILANTER 100-62.5-25 MCG/DOSE IH SCH ×2 (10:41→11:49)
[2020-08-18] MEDS: METHIMAZOLE 5 MG TABLET PO SCH ×2 (10:41→11:48)
[2020-08-18] MEDS: ENOXAPARIN SODIUM INJ 40 MG/0.4 ML DISP.SYRIN SUBCUT SCH ×2 (10:41→11:52)
[2020-08-18] MEDS: ASPIRIN 325 MG TABLET PO SCH ×2 (10:41→11:48)
[2020-08-18] MEDS ORDERED: NORMAL SALINE 1000 ML 500 ML IV ONE (11:17)
--- NOTE | 2020-08-18 12:07 | RADIOLOGY REPORT (SQ) ---
EXAM DESCRIPTION: INTRO/GI TUBE W/FLUORO; INTRO LONG GI TUBE (MILLAB) IMAGES COMPLETED DATE/TIME: 08/18/2020 10:15 am REASON FOR STUDY: for enteral feeding; FEEDING TUBE R55 SYNCOPE AND COLLAPSE E07.9 DISORDER OF THY ROID, UNSPECIFIED COMPARISON: None. TECHNIQUE: Live fluoroscopic guidance. RADIATION DOSE: 2 minutes of fluoroscopy was used. 1 images saved to PACS. LIMITATIONS: None. FINDINGS: The patient was brought to the fluoroscopy room and placed supine on the fluoroscopy table . A NJ-tube was advanced through the right nostril through the stomach and ending in the 3rd portion of the duodenum. Approximately 20 mL of non ionic contrast was injected through the catheter to conf irm placement. A fluoroscopic spot film was saved to PACs demonstrating catheter tip within the 3rd t o 4th portion of the duodenum. IMPRESSION: Successful fluoroscopic guided placement of a NJ tube. COMMENT: Quality ID 145: Final reports for procedures using fluoroscopy that document radiation exp osure indices, or exposure time and number of fluorographic images (if radiation exposure indices are not available) TECHNICAL DOCUMENTATION: JOBD ID: [id number] 2010 [employer]- All Rights Reserved Reading location - IP/workstation name: [email or web address] [id number]
--- NOTE | 2020-08-18 12:07 | RADIOLOGY REPORT (SQ) ---
EXAM DESCRIPTION: INTRO/GI TUBE W/FLUORO; INTRO LONG GI TUBE (MILLAB) IMAGES COMPLETED DATE/TIME: 08/18/2020 10:15 am REASON FOR STUDY: for enteral feeding; FEEDING TUBE R55 SYNCOPE AND COLLAPSE E07.9 DISORDER OF THY ROID, UNSPECIFIED COMPARISON: None. TECHNIQUE: Live fluoroscopic guidance. RADIATION DOSE: 2 minutes of fluoroscopy was used. 1 images saved to PACS. LIMITATIONS: None. FINDINGS: The patient was brought to the fluoroscopy room and placed supine on the fluoroscopy table . A NJ-tube was advanced through the right nostril through the stomach and ending in the 3rd portion of the duodenum. Approximately 20 mL of non ionic contrast was injected through the catheter to conf irm placement. A fluoroscopic spot film was saved to PACs demonstrating catheter tip within the 3rd t o 4th portion of the duodenum. IMPRESSION: Successful fluoroscopic guided placement of a NJ tube. COMMENT: Quality ID 145: Final reports for procedures using fluoroscopy that document radiation exp osure indices, or exposure time and number of fluorographic images (if radiation exposure indices are not available) TECHNICAL DOCUMENTATION: JOBD ID: [id number] 2010 [employer]- All Rights Reserved Reading location - IP/workstation name: [email or web address] [id number]
[2020-08-18 12:10] LABS: ALBUMIN 2.5 g/dL (3.5-5.0); ALKALINE PHOSPHATASE 185 U/L (38-126); ANION GAP 7 (5-19); ASPARTATE AMINO TRANSFERASE 407 U/L (17-59); BILIRUBIN,DIRECT 1.9 mg/dL (0.0-0.4); BILIRUBIN,TOTAL 2.4 mg/dL (0.2-1.3); BLOOD UREA NITROGEN 73 mg/dL (7-20); CALCIUM 9.8 mg/dL (8.4-10.2); CARBON DIOXIDE 18 mmol/L (22-30); CHLORIDE 124 mmol/L (98-107); GLUCOSE 109 mg/dL (75-110); TOTAL PROTEIN 5.2 g/dL (6.3-8.2)
[2020-08-18 12:25] LABS: ARTERIAL BLOOD HCO3 20.3 mmol/L (20-24); ARTERIAL BLOOD O2 SATURATION 96.4 % (94-98); ARTERIAL BLOOD PCO2 43.3 mmHg (35-45); ARTERIAL BLOOD PH 7.29 (7.35-7.45); ARTERIAL BLOOD PO2 93.8 mmHg (80-100); ARTERIAL BLOOD TOTAL CO2 21.6 mmol/L (23-27)
[2020-08-18 12:35] LABS: ARTERIAL BLOOD FIO2 6L
--- NOTE | 2020-08-18 13:04 | PDOC CRITICAL CARE PROG REPORT ---
General Date:: 08/18/20 Hospital Day:: 13 Resuscitation Status: Full Code Events in the past 12 to 24 Hours:: Becoming more obtunded over last 2 days. Review of systems relevant to events:: Pulmonary Reason for ICU Addmission:: Evaluation - Medications: Medications reviewed and adjusted accordingly: Yes Vasopressors:: None Sedation:: None Physical Exam Vital Signs: Temp Pulse Resp BP Pulse Ox 98.8 F 127 H 18 96/76 L 97 08/18/20 12:00 08/18/20 12:18 08/18/20 12:18 08/18/20 12:00 08/18/20 12:18 Intake & Output 08/17/20 08/18/20 08/19/20 06:59 06:59 06:59 Intake Total 3497.35 2862.85 Output Total 1 Balance 3496.35 2862.85 Weight 90.2 kg 95.2 kg 95.2 kg Weight/Height Weight 95.2 kg Height 6 ft 2 in General appearance: PRESENT: no acute distress, thin Head exam: PRESENT: atraumatic, normocephalic Eye exam: PRESENT: conjunctiva pink, EOMI, PERRLA. ABSENT: scleral icterus Ear exam: PRESENT: normal external ear exam Mouth exam: PRESENT: moist, tongue midline Respiratory exam: PRESENT: clear to auscultation nicole, decreased breath sounds, o ther - Breathing is not labored but appearing agonal-like. ABSENT: rales, rhonchi, wheezes Cardiovascular exam: PRESENT: RRR, tachycardia. ABSENT: diastolic murmur, rubs, systolic murmur GI/Abdominal exam: PRESENT: normal bowel sounds, soft. ABSENT: distended, guarding, mass, organolmegaly, rebound, tenderness Rectal exam: PRESENT: deferred Extremities exam: PRESENT: full ROM. ABSENT: calf tenderness, clubbing, pedal edema Neurological exam: PRESENT: altered, CN II-XII grossly intact, other - Obtunded. Opens eyes occassionally, does not talk or answer questions. Skin exam: PRESENT: dry, intact, warm. ABSENT: cyanosis, rash Tubes/Lines: PRESENT: Other - Feeding tube Laboratory/Radiographs Laboratory Results: 08/18/20 11:20 08/18/20 11:20 08/18/20 08/18/20 08/18/20 11: 11:20 12:05 WBC Cancelled RBC Cancelled Hgb Cancelled Hct Cancelled MCV Cancelled MCH Cancelled MCHC Cancelled RDW Cancelled Plt Count Cancelled Seg Neutrophils % Cancelled Carbonic Acid 1.30 HCO3/H2CO3 Ratio 15:1 ABG pH 7.29 L ABG pCO2 43.3 ABG pO2 93.8 ABG HCO3 20.3 ABG O2 Saturation 96.4 ABG Base Excess -6.0 FiO2 6L Sodium 149.3 H Potassium 5.0 Chloride 124 H Carbon Dioxide 18 L Anion Gap 7 BUN 73 H Creatinine 1.47 H Est GFR ( Amer) 57 L Glucose 109 Calcium 9.8 Total Bilirubin 2.4 H AST 407 H Alkaline Phosphatase 185 H Total Protein 5.2 L Albumin 2.5 L 08/05/20 08/05/20 08/11/20 08:50 08:50 14:26 Creatine Kinase 114 CK-MB (CK-2) Troponin I < 0.012 0.048 08/11/20 08/11/20 19:55 19:55 Creatine Kinase 84 CK-MB (CK-2) 0.78 Troponin I Impressions: Abdomen Ultrasound 08/05/20 09:51 IMPRESSION: Nodular appearing liver, multinodular cirrhosis versus liver metastatic disease Multiple stones in the gallbladder without sonographic signs of acute cholecystitis Echogenic atrophic right kidney Abdomen/Pelvis CT 08/05/20 11:50 IMPRESSION: 1. Suspicious 2.3 cm solid nodule in the right medial lower lobe. This may be amenable to percutaneous sampling. Additionally, there are 2 indeterminate subcentimeter solid nodules in the left lower lobe. Background moderate pulmonary emphysema. 2. Innumerable hepatic metastases. 3. Infrarenal aortic bi-iliac stent graft. 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 4. Multiple bilateral indeterminate renal cortical lesions. Moderately suspicious 9 mm lesion at the inferior pole right kidney. Renal protocol MRI or CT may provide additional information, however many of these are too small to adequately characterize and follow-up may be required. 5. Prostatomegaly. Chest CT 08/05/20 11:51 IMPRESSION: 1. Suspicious 2.3 cm solid nodule in the right medial lower lobe. This may be amenable to percutaneous sampling. Additionally, there are 2 indeterminate subcentimeter solid nodules in the left lower lobe. Background moderate pulmonary emphysema. 2. Innumerable hepatic metastases. 3. Infrarenal aortic bi-iliac stent graft. 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 4. Multiple bilateral indeterminate renal cortical lesions. Moderately suspicious 9 mm lesion at the inferior pole right kidney. Renal protocol MRI or CT may provide additional information, however many of these are too small to adequately characterize and follow-up may be required. 5. Prostatomegaly. Chest/Abdomen CTA 08/06/20 00:00 IMPRESSION: NO PULMONARY EMBOLI. Guidance Needle Placement CT 08/08/20 00:00 IMPRESSION: CT GUIDED TARGETED LIVER BIOPSY PERFORMED ABOVE. PATHOLOGY PENDING. NO IMMEDIATE COMPLICATIONS. 6 CORES WERE OBTAINED. Liver Biopsy CT 08/08/20 00:00 IMPRESSION: CT GUIDED TARGETED LIVER BIOPSY PERFORMED ABOVE. PATHOLOGY PENDING. NO IMMEDIATE COMPLICATIONS. 6 CORES WERE OBTAINED. Chest X-Ray 08/10/20 08:30 IMPRESSION: Findings concerning for right lower lobe pneumonia. Head CT 08/11/20 07:15 IMPRESSION: Subtle findings may represent a subacute left frontal lobe ischemic injury ; consider MR imaging for improved characterization. Ill-defined lucency of the right temporal fossa skull base is of uncertain etiology or significance. No discrete mass. Background of mild microvascular and involutional changes. EVIDENCE OF ACUTE STROKE: NO. Gastrostomy Tube Placement 08/18/20 00:00 IMPRESSION: Successful fluoroscopic guided placement of a NJ tube. Guidance Fluoroscopy 08/18/20 00:00 IMPRESSION: Successful fluoroscopic guided placement of a NJ tube. EKG: Sinus tachycardia, LAFB. All labs, radiographs, diagnostic studies and EKGs were personally reviewed: Yes In addition, reports of radiographic and diagnostic studies were read: Yes Assessment and Plan - Diagnosis (1) Metastatic lung cancer (metastasis from lung to other site) Qualifiers: Laterality: unspecified laterality Qualified Code(s): C34.90 - Malignant neoplasm of unspecified part of unspecified bronchus or lung Is this a current diagnosis for this admission?: Yes Plan: His tumor burden is not excessive, but is metastatic to liver. CTX X 2 days. Multiple nodules in liver. His mental status is concerning and if we can find no other reason for this like aspiration, hypercarbia, then it is likely the lung cancer and I spoke to his about making him comfortable. (2) COPD (chronic obstructive pulmonary disease) Is this a current diagnosis for this admission?: Yes Plan: Extensive by CT. His chest AP diameter is deep indicating longer standing disease. (3) Dehydration Is this a current diagnosis for this admission?: Yes Plan: He is minimally responsive to straight leg raising. His Cr is up to 1.4. I believe there is an element of dehydration but it does not seem to explain LOC findings. (4) Tachycardia Is this a current diagnosis for this admission?: Yes Plan: There is no evidence of afib/flutter or MAT. Tachycardia likely from mild dehydration and overall sickness. Plan Summary: If ABG is good with normal pH and no hypercarbia try mo0re fluid. If he is not awake by then, then this may be a fatal situation and his knows this. No I CU at this time. Critical Time Critical Time (minutes): 40 Level of Care: MEDICAL Anticipated discharge: Hospice Anticipated DC Timeframe: Other -: 1. The care of a critical patient is a dynamic process. This note is a labor relations representative synopsis but static in nature. The timeframe for treatments given in order is not necessarily the actual time these treatments may have been done. 2. This patient requires critical care secondary to ongoing requirements for therapy not offered or safe outside the critical care environment. Transfer to a lower level of care will result in altered life or limb morbidity and mortality. 3. Multidisciplinary rounds completed. 4. ABCDE bundle addressed.
[2020-08-18] MEDS ORDERED: LACTULOSE SYRUP 20 GM/30 ML UDCUP PO ONE (14:00)
--- NOTE | 2020-08-18 14:14 | RADIOLOGY REPORT (SQ) ---
EXAM DESCRIPTION: CHEST SINGLE VIEW IMAGES COMPLETED DATE/TIME: 08/18/2020 1:49 pm REASON FOR STUDY: respiratory distress COMPARISON: None. NUMBER OF VIEWS: One view. TECHNIQUE: Single frontal radiographic image of the chest acquired. LIMITATIONS: None. FINDINGS: LUNGS AND PLEURA: There is now silhouetting of the right diaphragm and portions of the rig ht heart border. The left lung is clear. MEDIASTINUM AND HEART: Stable heart size and mediastinal structures. SUPPORT DEVICES: Right-sided port tip overlying SVC. Feeding tube extending into the left upper quad rant. BONY STRUCTURES: No acute findings. HARDWARE: None. OTHER: No other significant finding. IMPRESSION: Rehydration versus progressing pneumonia right lower lobe. Reading location - IP/workstation name: [email or web address]
[2020-08-18 14:22] LABS: ABSOLUTE LYMPHOCYTES (AUTO) 0.5 10^3/uL (0.5-4.7); ABSOLUTE MONOCYTES (AUTO) 0.1 10^3/uL (0.1-1.4); ABSOLUTE NEUT (AUTO) 8.1 10^3/uL (1.7-8.2); BASOPHILS % (AUTO) 0.2 % (0-2); HEMATOCRIT 33.1 % (37.9-51.0); MEAN CORPUSCULAR HGB CONC 33.1 g/dL (32.0-36.0); MEAN CORPUSCULAR VOLUME 91 fl (80-97); MONOCYTES % (AUTO) 1.3 % (3-13); RED BLOOD COUNT 3.65 10^6/uL (4.35-5.55); RED CELL DISTRIBUTION WIDTH 15.2 % (11.5-14.0); SEGMENTED NEUTROPHILS % (AUTO) 92.5 % (42-78); TOTAL CELLS COUNTED % (AUTO) 100 %; WHITE BLOOD COUNT 8.8 10^3/uL (4.0-10.5)
[2020-08-18 14:31] LABS: ALBUMIN 2.5 g/dL (3.5-5.0); ALKALINE PHOSPHATASE 205 U/L (38-126); ANION GAP 5 (5-19); ASPARTATE AMINO TRANSFERASE 427 U/L (17-59); BILIRUBIN,TOTAL 2.5 mg/dL (0.2-1.3); BLOOD UREA NITROGEN 72 mg/dL (7-20); CALCIUM 9.5 mg/dL (8.4-10.2); CARBON DIOXIDE 19 mmol/L (22-30); CHLORIDE 124 mmol/L (98-107); GLUCOSE 99 mg/dL (75-110); POTASSIUM 4.9 mmol/L (3.6-5.0); TOTAL PROTEIN 5.2 g/dL (6.3-8.2)
[2020-08-18 14:52] LABS: PLATELET COUNT 76 10^3/uL (150-450)
--- NOTE | 2020-08-18 16:20 | PDOC PROGRESS REPORT ---
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 Patient is a former smoker. He does not drink. Patient was scheduled for CT scan outpatient earlier today. Before he underwent the scan, he apparently fell in the bathroom was some head trauma. Patient mentioned that his legs gave out on him. He denied any dizziness. Is not sure if he lost consciousness. Denies any seizure activity or incontinence. He mentioned that he has not been eating as usual for the past 5 days but was able to keep fluids in. Work-up in the emergency room was positive for lung mass with numerous liver metastases." " 08/06/2020: Patient was seen and examined. He is stable on nasal cannula o xygen. Apparently he desaturated rapidly with minimal exertion. Slightly tachycardic. 08/07/2020: Patient was seen and examined. He is currently stable respiratory chase. CT angiogram negative for PE." 08/08/2020 Patient having liver biopsy reportedly. This may be easier to access tissue than a lung biopsy and probably safer as well. Patient is confused today but he is mostly oriented. He is unable to tell me the exact hospital he is in but otherwise knows who he is and the date. Hepatitis panel is pending. He has no new complaints today. 08/09/2020 Patient seems to be more clear headed today is now almost fully oriented. His biopsy results were pending during my encounter today. I did speak with Dr. Jurado later in the afternoon and she stated the patient has confirmed lung cancer and she plans to discuss this with the patient and his tomorrow to determine aggressive treatment with chemotherapy versus home with hospice. Patient cannot go to a rehab facility while also receiving chemotherapy. If he is too weak to go home with home health, Dr. Jurado believes he may be too weak to receive chemotherapy anyway. If that is the case, it may be best to send him to rehab for a few weeks in order to get him strong enough for chemotherapy. I will defer to her discussion with the family and the patient tomorrow. Likely can be discharged home with home health versus SNF tomorrow. 08/10/2020 Pt more alert and mentating better however he seems bit more congested today, wh ite blood cells are trending upwards with a left shift. I obtained a PA/lateral chest x-ray which showed possible right lower lobe pneumonia. I will start him on ceftriaxone/azithromycin given the aforementioned trends towards developing infection. Patient denies any other complaints that might localize an alternate source of infection. He will likely continue to have postobstructive pneumonia until his lung cancer is definitively treated. I spoke with Dr. Jurado and she is reportedly helping the patient and his family figure out a treatment course. Possible that the patient to get a dose of chemotherapy here and then be discharged to a rehab facility where he can get strong enough to have future doses of chemotherapy. Patient and his family are still deciding this. 08/11/2020 Patient still has some notable pulmonary congestion on exam. Antibiotics continue for suspected pneumonia related to his lung cancer. White blood cell count is lower today. Potassium is normalized. I noted that recent CTPA did not show PE. Patient is persistently tachycardic in the 130s despite adding moderate dose beta-mynor. We will change ceftriaxone to cefepime for broader coverage. If he does not improve, we may need to add vancomycin for MRSA coverage. We will get a twelve-lead EKG. Recent echocardiogram did not show any systolic or diastolic dysfunction. Stopped IV fluids and added IV Lasix as patient may be getting volume overloaded. 08/12/2020 Patient seems to be wheezing quite a bit today. He already takes Trelegy chronically and has not missed any doses. I believe he is having a mild COPD exacerbation and I have started him on a burst course of prednisone for the next 5 days. I discussed the plan going forward Dr. Jurado today and she states the patient will start chemotherapy on Saturday after a port is placed on Saturday. He will get 3 doses of chemotherapy and then hopefully go to a rehab facility on Saturday. We will need case management to arrange this. 08/13/2020 Patient is still wheezing today I will start him on scheduled duo nebs. Steroids and antibiotics seem to have helped a little bit. Plan is to get a Mediport on Saturday and start chemotherapy on Saturday. Covid and other respiratory virus tests are negative. Patient has no new complaints today other than some continued upper respiratory congestion. 08/14/2020 Patient is notably more confused today. I believe this has a lot to do with significant CO2 retention given that we are currently pushing his supplemental oxygen beyond what is required to maintain adequate saturation in a COPD patie nt. I discussed with nursing that our goal is 89 to 92% otherwise wean risk worsening the patient's confusion due to CO2 retention. Duo nebs are ordered, he continues on prednisone, and Trelegy is continued. Plan is for Mediport tomorrow. 08/15/2020 Patient still significantly confused and now has his Mediport placed. His heart rate is still elevated. We will get a repeat EKG to see if the rhythm has changed. Previous EKG was read as sinus tachycardia and I discussed it with Dr. Zuleta yesterday. We will give a trial of IV fluids to see if his heart rate response given he has had rather poor p.o. intake for the past several days. Hopefully, he is strong enough to tolerate the chemotherapy that is planned to start tomorrow. I am concerned that given the large burden of metastatic disease, he does not have a substantial response to chemotherapy with minimal systemic toxicity, we may need to reevaluate our plan for aggressive treatment and move towards a more comfort oriented approach with hospice." 08/16/20 Patient was seen and examined at bedside. He seems to be very drowsy. I was told by his nurse that he has not been wearing his CPAP machine the past 2 days and this was just started this morning. ABG pH 7.42, pCO2 34.6, pO2 64.7, bicarb 22. He is starting chemo today. With how is today i am worried on how chemo will affect him. 08/17/20 Patient was seen and examined at bedside. He is on his BiPAP/CPAP machine and seems to be marginally more alert today however he is still very weak looking and is barely able to answer my questions. He has been unable to eat anything for the past 2 days and I have spoken to his surrogate decision maker/ Sharonda possible Dobbhoff tube placement for feeding and she agreed to this. He is referred to for ACP note regarding discussion about his CODE STATUS. 08/18/20 Patient was seen and examined at bedside. He is barely able to open his eyes and could not even talk. He is breathing much harder today despite having a saturation of 95%. He also has not eaten the past 3 days and is not able to participate with PT. He had an episode of BP 70/50. It is in my medical opinion that the patient is actively dying. I asked the ICU associate creative director Dr. Mendoza to assess him and he agrees that this patient is not doing so well. He talked to the patient's at bedside and recommended that he be made comfort care. Patient's and surrogate decision maker agreed to change his CODE STATUS to DNR and also agreed to make him hospice. I also spoke to Dr. Ruiz to update her and she agreed with the change in CODE STATUS and hospice. However she stated that we should also start him on lactulose since his ammonia is high and he should also receive the Neulasta that he supposed to get tomorrow. I spoke to KJ from discharge planning and he is going to talk to the about hospice options. Reason For Visit: NEAR SYNCOPE, STAGE 4 LUNG CANCER Physical Exam Vital Signs: Temp Pulse Resp BP Pulse Ox 98.8 F 127 H 18 96/76 L 97 08/18/20 12:00 08/18/20 12:18 08/18/20 12:18 08/18/20 12:00 08/18/20 12:18 Intake & Output 08/17/20 08/18/20 08/19/20 06:59 06:59 06:59 Intake Total 3497.35 2862.85 1262.85 Output Total 1 Balance 3496.35 2862.85 1262.85 Weight 90.2 kg 95.2 kg 95.2 kg General appearance: PRESENT: severe distress Head exam: PRESENT: atraumatic, normocephalic Eye exam: PRESENT: EOMI, PERRLA Mouth exam: PRESENT: moist Neck exam: PRESENT: full ROM Respiratory exam: PRESENT: retraction, symmetrical, tachypnea Cardiovascular exam: PRESENT: RRR, +S1, +S2 GI/Abdominal exam: PRESENT: normal bowel sounds, soft Extremities exam: PRESENT: other - bilateral leg weakness Musculoskeletal exam: PRESENT: normal inspection Neurological exam: PRESENT: altered, other - barely able to open eyes let alone respond to questions Skin exam: PRESENT: normal color Results Laboratory Results: 08/18/20 13:47 08/18/20 13:47 08/18/20 08/18/20 08/18/20 11:20 11:20 12:05 WBC Cancelled RBC Cancelled Hgb Cancelled Hct Cancelled MCV Cancelled MCH Cancelled MCHC Cancelled RDW Cancelled Plt Count Cancelled Seg Neutrophils % Cancelled Carbonic Acid 1.30 HCO3/H2CO3 Ratio 15:1 ABG pH 7.29 L ABG pCO2 43.3 ABG pO2 93.8 ABG HCO3 20.3 ABG O2 Saturation 96.4 ABG Base Excess -6.0 FiO2 6L Sodium 149.3 H Potassium 5.0 Chloride 124 H Carbon Dioxide 18 L Anion Gap 7 BUN 73 H Creatinine 1.47 H Est GFR ( Amer) 57 L Glucose 109 Calcium 9.8 Total Bilirubin 2.4 H AST 407 H Alkaline Phosphatase 185 H Ammonia Total Protein 5.2 L Albumin 2.5 L 08/18/20 08/18/20 08/18/20 12:23 13:47 13:47 WBC 8.8 RBC 3.65 L Hgb 11.0 L Hct 33.1 L MCV 91 MCH 30.0 MCHC 33.1 RDW 15.2 H Plt Count 76 L Seg Neutrophils % 92.5 H Carbonic Acid HCO3/H2CO3 Ratio ABG pH ABG pCO2 ABG pO2 ABG HCO3 ABG O2 Saturation ABG Base Excess FiO2 Sodium 148.3 H Potassium 4.9 Chloride 124 H Carbon Dioxide 19 L Anion Gap 5 BUN 72 H Creatinine 1.48 H Est GFR ( Amer) 57 L Glucose 99 Calcium 9.5 Total Bilirubin 2.5 H AST 427 H Alkaline Phosphatase 205 H Ammonia 69.2 H Total Protein 5.2 L Albumin 2.5 L 08/05/20 08/05/20 08/11/20 08:50 08:50 14:26 Creatine Kinase 114 CK-MB (CK-2) Troponin I < 0.012 0.048 08/11/20 08/11/20 19:55 19:55 Creatine Kinase 84 CK-MB (CK-2) 0.78 Troponin I Impressions: Abdomen Ultrasound 08/05/20 09:51 IMPRESSION: Nodular appearing liver, multinodular cirrhosis versus liver metastatic disease Multiple stones in the gallbladder without sonographic signs of acute cholecystitis Echogenic atrophic right kidney Abdomen/Pelvis CT 08/05/20 11:50 IMPRESSION: 1. Suspicious 2.3 cm solid nodule in the right medial lower lobe. This may be amenable to percutaneous sampling. Additionally, there are 2 indeterminate subcentimeter solid nodules in the left lower lobe. Background moderate pulmonary emphysema. 2. Innumerable hepatic metastases. 3. Infrarenal aortic bi-iliac stent graft. 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 4. Multiple bilateral indeterminate renal cortical lesions. Moderately suspicious 9 mm lesion at the inferior pole right kidney. Renal protocol MRI or CT may provide additional information, however many of these are too small to adequately characterize and follow-up may be required. 5. Prostatomegaly. Chest CT 08/05/20 11:51 IMPRESSION: 1. Suspicious 2.3 cm solid nodule in the right medial lower lobe. This may be amenable to percutaneous sampling. Additionally, there are 2 indeterminate subcentimeter solid nodules in the left lower lobe. Background moderate pulmonary emphysema. 2. Innumerable hepatic metastases. 3. Infrarenal aortic bi-iliac stent graft. 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 4. Multiple bilateral indeterminate renal cortical lesions. Moderately suspicious 9 mm lesion at the inferior pole right kidney. Renal protocol MRI or CT may provide additional information, however many of these are too small to adequately characterize and follow-up may be required. 5. Prostatomegaly. Chest/Abdomen CTA 08/06/20 00:00 IMPRESSION: NO PULMONARY EMBOLI. Guidance Needle Placement CT 08/08/20 00:00 IMPRESSION: CT GUIDED TARGETED LIVER BIOPSY PERFORMED ABOVE. PATHOLOGY PENDING. NO IMMEDIATE COMPLICATIONS. 6 CORES WERE OBTAINED. Liver Biopsy CT 08/08/20 00:00 IMPRESSION: CT GUIDED TARGETED LIVER BIOPSY PERFORMED ABOVE. PATHOLOGY PENDING. NO IMMEDIATE COMPLICATIONS. 6 CORES WERE OBTAINED. Head CT 08/11/20 07:15 IMPRESSION: Subtle findings may represent a subacute left frontal lobe ischemic injury ; consider MR imaging for improved characterization. Ill-defined lucency of the right temporal fossa skull base is of uncertain etiology or significance. No discrete mass. Background of mild microvascular and involutional changes. EVIDENCE OF ACUTE STROKE: NO. Chest X-Ray 08/18/20 00:00 IMPRESSION: Rehydration versus progressing pneumonia right lower lobe. Gastrostomy Tube Placement 08/18/20 00:00 IMPRESSION: Successful fluoroscopic guided placement of a NJ tube. Guidance Fluoroscopy 08/18/20 00:00 IMPRESSION: Successful fluoroscopic guided placement of a NJ tube. Assessment and Plan - Diagnosis (1) Acute metabolic encephalopathy Is this a current diagnosis for this admission?: Yes Plan: -still very drowsy - ABG did not show any CO2 retention, pO2 64 - CT head 08/11/20 showed so findings may represent a subacute left frontal lobe ischemic injury. Ill-defined lucency at the right temporal fossa skull base is of uncertain etiology or significance. No discrete mass. -Patient is still very drowsy today with poor breathing efforts and episodes of hypotension. I believe he is actively dying and I have spoken to his and she agreed to change his CODE STATUS to DNR and transition him to hospice care. -Ammonia elevated to 69.2 we will give lactulose and monitor his mental status. (2) Metastatic lung cancer (metastasis from lung to other site) Qualifiers: Laterality: unspecified laterality Qualified Code(s): C34.90 - Malignant neoplasm of unspecified part of unspecified bronchus or lung Is this a current diagnosis for this admission?: Yes Plan: -After extensive discussion with his patient was made DNR and will transit ion to hospice care. -Dr. Jurado was updated about the patient's medical status and his 's decision and she agrees with DNR status and hospice care. Discharge planning consulted for hospice referral (3) COPD (chronic obstructive pulmonary disease) Is this a current diagnosis for this admission?: Yes Plan: - continue O2 support - duoneb PRN (4) Obstructive pneumonia Is this a current diagnosis for this admission?: Yes Plan: - on azithro/cefepime about D6. Abx stopped - WBC 10.1 - no blood culture and sputum culture - I doubt if anything is going to grow anything now that he has received a few days of abx (5) Hyperammonemia Is this a current diagnosis for this admission?: Yes Plan: - Ammonia level 69. Which may be contributing to his current mental state but I think not a whole lot since his mental status was basically the same with a normal ammonia 2 days ago - will give him lactulose and monitor his mental status (6) Elevated liver enzymes Is this a current diagnosis for this admission?: Yes Plan: - AST 200>277, ALT 141>133, ALP 164>207 - hepatitis panel negative - Most likely related to liver metastasis. - will CTM (7) HTN (hypertension) Qualifiers: Hypertension type: essential hypertension Qualified Code(s): I10 - Essential (primary) hypertension Is this a current diagnosis for this admission?: Yes Plan: on cardizem and metoprolol. (8) Tachycardia Is this a current diagnosis for this admission?: Yes Plan: There is no evidence of afib/flutter or MAT. Tachycardia likely from mild dehydration and overall sickness. (9) Elevated d-dimer Is this a current diagnosis for this admission?: Yes Plan: - D dimer 8.49 - CTA no PE - on lovenox 40 daily (10) Malnutrition Qualifiers: Malnutrition type: protein-calorie malnutrition Protein-calorie malnutrition severity: unspecified severity Qualified Code(s): E46 - Unspecified protein-calorie malnutrition Is this a current diagnosis for this admission?: Yes Plan: Patient has been unable to eat the past 2 days -We will need Dobbhoff tube and enteral feeding - Plan Summary Summary: After extensive discussion with his and surrogate decision maker the patient CODE STATUS was changed to DNR and he will eventually transition to hospice care. - Time Time Spent with patient: 35 or more minutes Medications reviewed and adjusted accordingly: Yes Anticipated Discharge Disposition: Hospice Center Anticipated Discharge Timeframe: TBD
[2020-08-18] MEDS: DEXTROSE 5%-1/4 NORMAL SALINE 1,000 ML IV PRN (18:15)
[2020-08-19] MEDS ORDERED: PEGFILGRASTIM-CBQV 6 MG/0.6 ML SYRINGE SUBCUT PRN ×2 (05:00)
[2020-08-19] MEDS: CEFEPIME 1 GM/D5W RTU 1 GM/50 ML RTUPB IV SCH (05:49)
[2020-08-19] MEDS ORDERED: LACTULOSE SYRUP 20 GM/30 ML UDCUP PO ONE (07:59)
[2020-08-19 08:08] VITALS: BP 116/52
--- NOTE | 2020-08-19 08:32 | PDOC PROGRESS REPORT ---
Subjective Date:: 08/19/20 Subjective:: Patient is unresponsive. Dophoff tube has been placed, but has not yet been use d. Phillips has been placed. Reason For Visit: NEAR SYNCOPE, STAGE 4 LUNG CANCER Physical Exam Vital Signs: Temp Pulse Resp BP Pulse Ox 98.9 F 115 H 20 116/52 L 89 L 08/19/20 08:08 08/19/20 08:08 08/19/20 08:08 08/19/20 08:08 08/19/20 08:08 Intake & Output 08/18/20 08/19/20 08/20/20 06:59 06:59 06:59 Intake Total 2862.85 2312.85 Output Total 475 Balance 2862.85 1837.85 Weight 95.2 kg 93.7 kg General appearance: PRESENT: no acute distress Head exam: PRESENT: normocephalic Mouth exam: PRESENT: dry mucosa Respiratory exam: PRESENT: clear to auscultation nicole, unlabored Cardiovascular exam: PRESENT: RRR GI/Abdominal exam: PRESENT: soft. ABSENT: tenderness Extremities exam: PRESENT: +1 edema Neurological exam: PRESENT: other - Unresponsive. Skin exam: PRESENT: normal color Results Laboratory Results: 08/18/20 13:47 08/18/20 13:47 08/18/20 08/18/20 08/18/20 11:20 11:20 12:05 WBC Cancelled RBC Cancelled Hgb Cancelled Hct Cancelled MCV Cancelled MCH Cancelled MCHC Cancelled RDW Cancelled Plt Count Cancelled Seg Neutrophils % Cancelled Carbonic Acid 1.30 HCO3/H2CO3 Ratio 15:1 ABG pH 7.29 L ABG pCO2 43.3 ABG pO2 93.8 ABG HCO3 20.3 ABG O2 Saturation 96.4 ABG Base Excess -6.0 FiO2 6L Sodium 149.3 H Potassium 5.0 Chloride 124 H Carbon Dioxide 18 L Anion Gap 7 BUN 73 H Creatinine 1.47 H Est GFR ( Amer) 57 L Glucose 109 Calcium 9.8 Total Bilirubin 2.4 H AST 407 H Alkaline Phosphatase 185 H Ammonia Total Protein 5.2 L Albumin 2.5 L 08/18/20 08/18/20 08/18/20 12:23 13:47 13:47 WBC 8.8 RBC 3.65 L Hgb 11.0 L Hct 33.1 L MCV 91 MCH 30.0 MCHC 33.1 RDW 15.2 H Plt Count 76 L Seg Neutrophils % 92.5 H Carbonic Acid HCO3/H2CO3 Ratio ABG pH ABG pCO2 ABG pO2 ABG HCO3 ABG O2 Saturation ABG Base Excess FiO2 Sodium 148.3 H Potassium 4.9 Chloride 124 H Carbon Dioxide 19 L Anion Gap 5 BUN 72 H Creatinine 1.48 H Est GFR ( Amer) 57 L Glucose 99 Calcium 9.5 Total Bilirubin 2.5 H AST 427 H Alkaline Phosphatase 205 H Ammonia 69.2 H Total Protein 5.2 L Albumin 2.5 L 08/05/20 08/05/20 08/11/20 08:50 08:50 14:26 Creatine Kinase 114 CK-MB (CK-2) Troponin I < 0.012 0.048 08/11/20 08/11/20 19:55 19:55 Creatine Kinase 84 CK-MB (CK-2) 0.78 Troponin I Impressions: Abdomen Ultrasound 08/05/20 09:51 IMPRESSION: Nodular appearing liver, multinodular cirrhosis versus liver metastatic disease Multiple stones in the gallbladder without sonographic signs of acute cholecystitis Echogenic atrophic right kidney Abdomen/Pelvis CT 08/05/20 11:50 IMPRESSION: 1. Suspicious 2.3 cm solid nodule in the right medial lower lobe. This may be amenable to percutaneous sampling. Additionally, there are 2 indeterminate subcentimeter solid nodules in the left lower lobe. Background moderate pulmonary emphysema. 2. Innumerable hepatic metastases. 3. Infrarenal aortic bi-iliac stent graft. 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 4. Multiple bilateral indeterminate renal cortical lesions. Moderately suspicious 9 mm lesion at the inferior pole right kidney. Renal protocol MRI or CT may provide additional information, however many of these are too small to adequately characterize and follow-up may be required. 5. Prostatomegaly. Chest CT 08/05/20 11:51 IMPRESSION: 1. Suspicious 2.3 cm solid nodule in the right medial lower lobe. This may be amenable to percutaneous sampling. Additionally, there are 2 indeterminate subcentimeter solid nodules in the left lower lobe. Background moderate pulmonary emphysema. 2. Innumerable hepatic metastases. 3. Infrarenal aortic bi-iliac stent graft. 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 4. Multiple bilateral indeterminate renal cortical lesions. Moderately suspicious 9 mm lesion at the inferior pole right kidney. Renal protocol MRI or CT may provide additional information, however many of these are too small to adequately characterize and follow-up may be required. 5. Prostatomegaly. Chest/Abdomen CTA 08/06/20 00:00 IMPRESSION: NO PULMONARY EMBOLI. Guidance Needle Placement CT 08/08/20 00:00 IMPRESSION: CT GUIDED TARGETED LIVER BIOPSY PERFORMED ABOVE. PATHOLOGY PENDING. NO IMMEDIATE COMPLICATIONS. 6 CORES WERE OBTAINED. Liver Biopsy CT 08/08/20 00:00 IMPRESSION: CT GUIDED TARGETED LIVER BIOPSY PERFORMED ABOVE. PATHOLOGY PENDING. NO IMMEDIATE COMPLICATIONS. 6 CORES WERE OBTAINED. Head CT 08/11/20 07:15 IMPRESSION: Subtle findings may represent a subacute left frontal lobe ischemic injury ; consider MR imaging for improved characterization. Ill-defined lucency of the right temporal fossa skull base is of uncertain etiology or significance. No discrete mass. Background of mild microvascular and involutional changes. EVIDENCE OF ACUTE STROKE: NO. Chest X-Ray 08/18/20 00:00 IMPRESSION: Rehydration versus progressing pneumonia right lower lobe. Gastrostomy Tube Placement 08/18/20 00:00 IMPRESSION: Successful fluoroscopic guided placement of a NJ tube. Guidance Fluoroscopy 08/18/20 00:00 IMPRESSION: Successful fluoroscopic guided placement of a NJ tube. Assessment & Plan - Diagnosis (1) COPD (chronic obstructive pulmonary disease) Is this a current diagnosis for this admission?: Yes (2) Elevated liver enzymes Is this a current diagnosis for this admission?: Yes Plan: Lactulose was given x 1 yesterday. I will order BID x 38 hours. I will repeat Ammonia level tomorrow. Continue lactulose based on levels. This is due to the cancer. (3) Lung nodule Is this a current diagnosis for this admission?: Yes (4) Lung cancer Is this a current diagnosis for this admission?: Yes Plan: Neulasta today. He completed cycle #1 of chemo. I spoke with today, and have again explained that over the next 2-3 weeks, he may continue to get worse everyday. We have given him every chance to respond. It is just a race against time at this point. - Time Time Spent with patient: 15-24 minutes - Plan Summary Plan Summary: states that they are looking at transferring him to [facility] with Hospice. I am in agreement with this plan. He should get Naulasta prior to discharge. I still believe he would feel better with the lactulose and this may be continued while on Hospice. I would like to have diet orders for him prior to discharge, although Hospice may not agree to this.
[2020-08-19] MEDS: DEXTROSE 5%-1/4 NORMAL SALINE 1,000 ML IV PRN (08:38)
--- NOTE | 2020-08-19 09:47 | PDOC TRANSFER SUMMARY ---
General - Admit/Disc Date/PCP Admission Date/Primary Care Provider: 08/05/20 15:16 K Bhupendra MOTA MD Discharge Date: 08/19/20 - Discharge Diagnosis (1) Acute metabolic encephalopathy Is this a current diagnosis for this admission?: Yes Summary: -still very drowsy - ABG did not show any CO2 retention, pO2 64 - CT head 08/11/20 showed so findings may represent a subacute left frontal lobe ischemic injury. Ill-defined lucency at the right temporal fossa skull base is of uncertain etiology or significance. No discrete mass. -Patient is still very drowsy today with poor breathing efforts and episodes of hypotension. I believe he is actively dying and I have spoken to his and she agreed to change his CODE STATUS to DNR and transition him to hospice care. -Ammonia elevated to 69.2 we will give lactulose and monitor his mental status. (2) Metastatic lung cancer (metastasis from lung to other site) Is this a current diagnosis for this admission?: Yes Summary: After extensive discussion with his patient was made DNR and will transition to hospice care. -Dr. Jurado was updated about the patient's medical status and his 's decision and she agrees with DNR status and hospice care. Discharge planning consulted for hospice referral - patient received total of 3 days chemo etoposide and pelfilgastrim (3) COPD (chronic obstructive pulmonary disease) Is this a current diagnosis for this admission?: Yes Summary: - continue O2 support - duoneb PRN (4) Obstructive pneumonia Is this a current diagnosis for this admission?: Yes (5) Hyperammonemia Is this a current diagnosis for this admission?: Yes Summary: - Ammonia 69 given 2 doses of lactulose (6) Elevated liver enzymes Is this a current diagnosis for this admission?: Yes Summary: - likely 2/2 liver mets (7) HTN (hypertension) Is this a current diagnosis for this admission?: Yes (8) Tachycardia Is this a current diagnosis for this admission?: Yes Summary: There is no evidence of afib/flutter or MAT. Tachycardia likely from mild dehydration and overall sickness. (9) Elevated d-dimer Is this a current diagnosis for this admission?: Yes Summary: - D dimer 8.49 - CTA no PE - on lovenox 40 daily. Stopped with hospice transition (10) Malnutrition Is this a current diagnosis for this admission?: Yes Summary: - has a dobhoff, per Dietary recs "recommend to initiate Jevity 1.5 at 25 mL/ht and advance 10 ml every 8 hrs until goal 65 ml/hr provides 2340 kcal gm protein, 1186 ml free water fluid. If not on IV fluids, recommend hourly flushes of 50 ml/hr to provide additional 1.2L initiation of tube feedings". - Additional Information Resuscitation Status: Do Not Resuscitate Discharge Diet: As Tolerated Home Medications: Albuterol Sulfate [Proair Hfa Inhalation Aerosol 8.5 gm Mdi] 2 puff IH Q6HP PRN 08/05/20 Amlodipine Besylate [Norvasc 5 mg Tablet] 5 mg PO DAILY 08/05/20 Aspirin [Aspirin 325 mg Tablet] 325 mg PO DAILY 08/05/20 Cholecalciferol (Vitamin D3) [Vitamin D3 1000 Unit Tablet] 5,000 unit PO DAILY 08/05/20 Fluticasone/Umeclidin/Vilanter [Trelegy 100-62.5-25 Mcg Ellipta 14 Dose/Dpi] 1 each IH DAILY 08/05/20 Methimazole [Tapazole 5 Mg Tablet] 2.5 mg PO DAILY 08/05/20 Potassium Chloride [Klor-Con 10 Meq Tablet ER] 10 meq PO QPM 08/05/20 Potassium Chloride [Klor-Con 10 Meq Tablet ER] 20 meq PO DAILY 08/05/20 Tiotropium [place] [Spiriva Handihaler 5 Cap/Kit (18 Mcg/Cap)] 1 cap IH DAILY 08/05/20 History of Present Illness Admission Date/PCP: 08/05/20 15:16 Denia MOTA MD History of Present Illness: LAUREN GOVEA is a 70 year old male who has history of hypertension, aortic aneurysm status post endovascular repair, COPD not on home oxygen. Patient is a former smoker. He does not drink. Patient was scheduled for CT scan outpatient earlier today. Before he underwent the scan, he apparently fell in the bathroom was some head trauma. Patient mentioned that his legs gave out on him. He d enied any dizziness. Is not sure if he lost consciousness. Denies any seizure activity or incontinence. He mentioned that he has not been eating as usual for the past 5 days but was able to keep fluids in. Work-up in the emergency room was positive for lung mass with numerous liver metastases." Hospital Course Hospital Course: 08/06/2020: Patient was seen and examined. He is stable on nasal cannula oxygen. Apparently he desaturated rapidly with minimal exertion. Slightly tachycardic. 08/07/2020: Patient was seen and examined. He is currently stable respiratory chase. CT angiogram negative for PE." 08/08/2020 Patient having liver biopsy reportedly. This may be easier to access tissue than a lung biopsy and probably safer as well. Patient is confused today but he is mostly oriented. He is unable to tell me the exact hospital he is in but otherwise knows who he is and the date. Hepatitis panel is pending. He has no new complaints today. 08/09/2020 Patient seems to be more clear headed today is now almost fully oriented. His biopsy results were pending during my encounter today. I did speak with Dr. Jurado later in the afternoon and she stated the patient has confirmed lung cancer and she plans to discuss this with the patient and his tomorrow to determine aggressive treatment with chemotherapy versus home with hospice. Patient cannot go to a rehab facility while also receiving chemotherapy. If he is too weak to go home with home health, Dr. Jurado believes he may be too weak to receive chemotherapy anyway. If that is the case, it may be best to send him to rehab for a few weeks in order to get him strong enough for chemotherapy. I will defer to her discussion with the family and the patient tomorrow. Likely can be discharged home with home health versus SNF tomorrow. 08/10/2020 Pt more alert and mentating better however he seems bit more congested today, white blood cells are trending upwards with a left shift. I obtained a PA/lateral chest x-ray which showed possible right lower lobe pneumonia. I will start him on ceftriaxone/azithromycin given the aforementioned trends towards developing infection. Patient denies any other complaints that might localize an alternate source of infection. He will likely continue to have postobstructive pneumonia until his lung cancer is definitively treated. I spoke with Dr. Jurado and she is reportedly helping the patient and his family figure out a treatment course. Possible that the patient to get a dose of chemotherapy here and then be discharged to a rehab facility where he can get strong enough to have future doses of chemotherapy. Patient and his family are still deciding this. 08/11/2020 Patient still has some notable pulmonary congestion on exam. Antibiotics continue for suspected pneumonia related to his lung cancer. White blood cell c ount is lower today. Potassium is normalized. I noted that recent CTPA did not show PE. Patient is persistently tachycardic in the 130s despite adding moderate dose beta-mynor. We will change ceftriaxone to cefepime for broader coverage. If he does not improve, we may need to add vancomycin for MRSA coverage. We will get a twelve-lead EKG. Recent echocardiogram did not show any systolic or diastolic dysfunction. Stopped IV fluids and added IV Lasix as patient may be getting volume overloaded. 08/12/2020 Patient seems to be wheezing quite a bit today. He already takes Trelegy chronically and has not missed any doses. I believe he is having a mild COPD exacerbation and I have started him on a burst course of prednisone for the next 5 days. I discussed the plan going forward Dr. Jurado today and she states the patient will start chemotherapy on Saturday after a port is placed on Saturday. He will get 3 doses of chemotherapy and then hopefully go to a rehab facility on Saturday. We will need case management to arrange this. 08/13/2020 Patient is still wheezing today I will start him on scheduled duo nebs. Steroids and antibiotics seem to have helped a little bit. Plan is to get a Mediport on Saturday and start chemotherapy on Saturday. Covid and other respiratory virus tests are negative. Patient has no new complaints today other than some continued upper respiratory congestion. 08/14/2020 Patient is notably more confused today. I believe this has a lot to do with significant CO2 retention given that we are currently pushing his supplemental oxygen beyond what is required to maintain adequate saturation in a COPD patient. I discussed with nursing that our goal is 89 to 92% otherwise wean risk worsening the patient's confusion due to CO2 retention. Duo nebs are o rdered, he continues on prednisone, and Trelegy is continued. Plan is for Mediport tomorrow. 08/15/2020 Patient still significantly confused and now has his Mediport placed. His heart rate is still elevated. We will get a repeat EKG to see if the rhythm has changed. Previous EKG was read as sinus tachycardia and I discussed it with Dr. Zuleta yesterday. We will give a trial of IV fluids to see if his heart rate response given he has had rather poor p.o. intake for the past several days. Hopefully, he is strong enough to tolerate the chemotherapy that is planned to start tomorrow. I am concerned that given the large burden of metastatic disease, he does not have a substantial response to chemotherapy with minimal systemic toxicity, we may need to reevaluate our plan for aggressive treatment and move towards a more comfort oriented approach with hospice." 08/16/20 Patient was seen and examined at bedside. He seems to be very drowsy. I was told by his nurse that he has not been wearing his CPAP machine the past 2 days and this was just started this morning. ABG pH 7.42, pCO2 34.6, pO2 64.7, bicarb 22. He is starting chemo today. With how is today i am worried on how chemo will affect him. 08/17/20 Patient was seen and examined at bedside. He is on his BiPAP/CPAP machine and seems to be marginally more alert today however he is still very weak looking and is barely able to answer my questions. He has been unable to eat anything for the past 2 days and I have spoken to his surrogate decision maker/ Sharonda possible Dobbhoff tube placement for feeding and she agreed to this. He is referred to for ACP note regarding discussion about his CODE STATUS. 08/18/20 Patient was seen and examined at bedside. He is barely able to open his eyes and could not even talk. He is breathing much harder today despite having a saturation of 95%. He also has not eaten the past 3 days and is not able to participate with PT. He had an episode of BP 70/50. It is in my medical opinion that the patient is actively dying. I asked the ICU shank maker Dr. Mendoza to assess him and he agrees that this patient is not doing so well. He talked to the patient's at bedside and recommended that he be made comfort care. Patient's and surrogate decision maker agreed to change his CODE STATUS to DNR and also agreed to make him hospice. I also spoke to Dr. Ruiz to update her and she agreed with the change in CODE STATUS and hospice. However she stated that we should also start him on lactulose since his ammonia is high and he should also receive the Neulasta that he supposed to get tomorrow. I spoke to JARED from discharge planning and he is going to talk to the about hospice options. Physical Exam Vital Signs: Temp Pulse Resp BP Pulse Ox 98.9 F 115 H 20 116/52 L 89 L 08/19/20 08:08 08/19/20 08:08 08/19/20 08:08 08/19/20 08:08 08/19/20 08:08 Intake & Output 08/18/20 08/19/20 08/20/20 06:59 06:59 06:59 Intake Total 2862.85 3312.85 Output Total 475 Balance 2862.85 2837.85 Weight 95.2 kg 93.7 kg General appearance: PRESENT: severe distress Head exam: PRESENT: atraumatic, normocephalic Eye exam: PRESENT: EOMI, PERRLA Mouth exam: PRESENT: moist Neck exam: PRESENT: full ROM Respiratory exam: PRESENT: rales, symmetrical, other - labored breathing Cardiovascular exam: PRESENT: +S1, +S2, tachycardia Extremities exam: PRESENT: full ROM Musculoskeletal exam: PRESENT: full ROM Neurological exam: PRESENT: altered Skin exam: PRESENT: normal color Results Laboratory Results: 08/18/20 13:47 08/18/20 13:47 08/18/20 08/18/20 08/18/20 11:20 11:20 12:05 WBC Cancelled RBC Cancelled Hgb Cancelled Hct Cancelled MCV Cancelled MCH Cancelled MCHC Cancelled RDW Cancelled Plt Count Cancelled Seg Neutrophils % Cancelled Carbonic Acid 1.30 HCO3/H2CO3 Ratio 15:1 ABG pH 7.29 L ABG pCO2 43.3 ABG pO2 93.8 ABG HCO3 20.3 ABG O2 Saturation 96.4 ABG Base Excess -6.0 FiO2 6L Sodium 149.3 H Potassium 5.0 Chloride 124 H Carbon Dioxide 18 L Anion Gap 7 BUN 73 H Creatinine 1.47 H Est GFR ( Amer) 57 L Glucose 109 Calcium 9.8 Total Bilirubin 2.4 H AST 407 H Alkaline Phosphatase 185 H Ammonia Total Protein 5.2 L Albumin 2.5 L 08/18/20 08/18/20 08/18/20 12:23 13:47 13:47 WBC 8.8 RBC 3.65 L Hgb 11.0 L Hct 33.1 L MCV 91 MCH 30.0 MCHC 33.1 RDW 15.2 H Plt Count 76 L Seg Neutrophils % 92.5 H Carbonic Acid HCO3/H2CO3 Ratio ABG pH ABG pCO2 ABG pO2 ABG HCO3 ABG O2 Saturation ABG Base Excess FiO2 Sodium 148.3 H Potassium 4.9 Chloride 124 H Carbon Dioxide 19 L Anion Gap 5 BUN 72 H Creatinine 1.48 H Est GFR ( Amer) 57 L Glucose 99 Calcium 9.5 Total Bilirubin 2.5 H AST 427 H Alkaline Phosphatase 205 H Ammonia 69.2 H Total Protein 5.2 L Albumin 2.5 L 08/05/20 08/05/20 08/11/20 08:50 08:50 14:26 Creatine Kinase 114 CK-MB (CK-2) Troponin I < 0.012 0.048 08/11/20 08/11/20 19:55 19:55 Creatine Kinase 84 CK-MB (CK-2) 0.78 Troponin I Impressions: Abdomen Ultrasound 08/05/20 09:51 IMPRESSION: Nodular appearing liver, multinodular cirrhosis versus liver metastatic disease Multiple stones in the gallbladder without sonographic signs of acute cholecystitis Echogenic atrophic right kidney Abdomen/Pelvis CT 08/05/20 11:50 IMPRESSION: 1. Suspicious 2.3 cm solid nodule in the right medial lower lobe. This may be amenable to percutaneous sampling. Additionally, there are 2 indeterminate subcentimeter solid nodules in the left lower lobe. Background moderate pulmonary emphysema. 2. Innumerable hepatic metastases. 3. Infrarenal aortic bi-iliac stent graft. 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 4. Multiple bilateral indeterminate renal cortical lesions. Moderately suspicious 9 mm lesion at the inferior pole right kidney. Renal protocol MRI or CT may provide additional information, however many of these are too small to adequately characterize and follow-up may be required. 5. Prostatomegaly. Chest CT 08/05/20 11:51 IMPRESSION: 1. Suspicious 2.3 cm solid nodule in the right medial lower lobe. This may be amenable to percutaneous sampling. Additionally, there are 2 indeterminate subcentimeter solid nodules in the left lower lobe. Background moderate pulmonary emphysema. 2. Innumerable hepatic metastases. 3. Infrarenal aortic bi-iliac stent graft. 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 4. Multiple bilateral indeterminate renal cortical lesions. Moderately suspicious 9 mm lesion at the inferior pole right kidney. Renal protocol MRI or CT may provide additional information, however many of these are too small to adequately characterize and follow-up may be required. 5. Prostatomegaly. Chest/Abdomen CTA 08/06/20 00:00 IMPRESSION: NO PULMONARY EMBOLI. Guidance Needle Placement CT 08/08/20 00:00 IMPRESSION: CT GUIDED TARGETED LIVER BIOPSY PERFORMED ABOVE. PATHOLOGY PENDING. NO IMMEDIATE COMPLICATIONS. 6 CORES WERE OBTAINED. Liver Biopsy CT 08/08/20 00:00 IMPRESSION: CT GUIDED TARGETED LIVER BIOPSY PERFORMED ABOVE. PATHOLOGY PENDING. NO IMMEDIATE COMPLICATIONS. 6 CORES WERE OBTAINED. Head CT 08/11/20 07:15 IMPRESSION: Subtle findings may represent a subacute left frontal lobe ischemic injury ; consider MR imaging for improved characterization. Ill-defined lucency of the right temporal fossa skull base is of uncertain etiology or significance. No discrete mass. Background of mild microvascular and involutional changes. EVIDENCE OF ACUTE STROKE: NO. Chest X-Ray 08/18/20 00:00 IMPRESSION: Rehydration versus progressing pneumonia right lower lobe. Gastrostomy Tube Placement 08/18/20 00:00 IMPRESSION: Successful fluoroscopic guided placement of a [place] tube. Guidance Fluoroscopy 08/18/20 00:00 IMPRESSION: Successful fluoroscopic guided placement of a [place] tube. Transfer Plan - Disposition Transfer Plan: Transfer to hospice. Oncologist wants him to receive dobhoff feeding if agreaable as well as lactulose. - Time Spent with Patient Time spent with patient: Less than 30 Minutes Qualifiers PATIENT BEING DISCHARGED WITH ANY OF THE FOLLOWING DIAGNOSIS: No VTE patient discharged on overlapping Therapy?: No Reason(s) for not prescribing Overlap Therapy:: Medical Contraindication Stroke Pt being discharged on Anti-thrombolytic therapy?: No Reason(s) for not prescribing Anti-thrombolytic therapy:: Tx not tolerated
[2020-08-19] MEDS ORDERED: LACTULOSE SYRUP 20 GM/30 ML UDCUP PO SCH (10:00)
== END 2020-08-19 10:12 | disposition hospice, inpatient (51) | DRG 180 ==
LOC: ER 08:45 → EH 15:16 → OBSVTOIN 15:16 → 4N 17:30
PROVIDERS: ADMIT Family Medicine; ATTEND Internal Medicine
PROC: 5A09357 Assistance with Respiratory Ventilation, Less than 24 Consecutive Hours, Continuous Positive Airway Pressure (ICD-10-PCS; 2020-08-06)
PROC: 0FB13ZX Excision of Right Lobe Liver, Percutaneous Approach, Diagnostic (ICD-10-PCS; principal; 2020-08-08)
PROC: 05H533Z Insertion of Infusion Device into Right Subclavian Vein, Percutaneous Approach (ICD-10-PCS; 2020-08-15)
PROC: 0DH67UZ Insertion of Feeding Device into Stomach, Via Natural or Artificial Opening (ICD-10-PCS; 2020-08-18)
DX: C34.90 Malignant neoplasm of unspecified part of unspecified bronchus or lung (principal); J96.01 Acute respiratory failure with hypoxia; G93.41 Metabolic encephalopathy; E46 Unspecified protein-calorie malnutrition; J44.0 Chronic obstructive pulmonary disease with (acute) lower respiratory infection; J44.1 Chronic obstructive pulmonary disease with (acute) exacerbation; C78.7 Secondary malignant neoplasm of liver and intrahepatic bile duct; S09.90XA Unspecified injury of head, initial encounter; E86.0 Dehydration; C80.1 Malignant (primary) neoplasm, unspecified; I10 Essential (primary) hypertension; G47.33 Obstructive sleep apnea (adult) (pediatric); W19.XXXA Unspecified fall, initial encounter; R55 Syncope and collapse; R00.0 Tachycardia, unspecified; G31.84 Mild cognitive impairment of uncertain or unknown etiology; R79.1 Abnormal coagulation profile; Z51.5 Encounter for palliative care; Z66 Do not resuscitate; Z87.891 Personal history of nicotine dependence; Z82.49 Family history of ischemic heart disease and other diseases of the circulatory system; Z79.82 Long term (current) use of aspirin; Z79.899 Other long term (current) drug therapy; Z88.0 Allergy status to penicillin; Z88.2 Allergy status to sulfonamides; Z11.59 Encounter for screening for other viral diseases
CPT/HCPCS: 00532; 36415; 36600; 44500; 47000; 70450; 70460; 71045; 71046; 71260; 71275; 74177; 74340; 76705; 77001; 77012; 80048; 80053; 80074; 81001; 82140; 82533; 82550; 82553; 82803; 82962; 83605; 83735; 84439; 84443; 84484; 85025; 85027; 85379; 85610; 85730; 87070; 88305; 88341; 88342; 93005; 93010; 93306; 93976; 94640; 96360; 96361; 96367; 96375; 96413; 96417; 99233; 99285; 0241U; C1752; C1788; C9803; G0378; J0456; J0690; J0692; J0696; J1100; J1453; J1642; J1650; J1940; J2250; J2469; J2704; J3010; J3490; J7030; J7040; J7050; J7060; J7120; J7121; J7512; J9045; J9181; Q5111